=== PATIENT | male | born 1965 | race Caucasian/White ===

== ENCOUNTER 2023-06-28 19:26 | Emergency (ER) | payer SELFPAY ==
[2023-06-28] VITALS (10 sets, daily range): BP systolic 78–140; BP diastolic 54–100; PULSE 62–83; RESP 14–19; TEMP 35.3–35.8; O2SAT 88–97
--- NOTE | 2023-06-28 19:59 | ED_ITS ---
Documented by User: MARIAN Rose 06/28/23 21:21 HPI - Back Pain/Injury 2 General: Chief Complaint: Back Pain/Injury Stated Complaint: back pain Time Seen by Provider: 06/28/23 19:58 History of Present Illness: 57-year-old male patient comes in today with severe abdominal and back pain. Patient started having pain in his back last night. This evening when patient got up to have dinner he ate dinner and then threw up. Since then he has become chilled with decreased responsiveness. Spouse states that patient does have a history of kidney problems, CHF. Glucose 172 Review of Systems 2 General: Reports: 10 or more systems reviewed and unremarkable except in HPI and below Musc: Reports: back pain Physical Exam 2 Const: COMMON NORMALS: alert HENMT: HEAD & SCALP: normal to inspection Chest: COMMONS NORMALS: normal inspection of the chest Resp: COMMON NORMALS: clear to auscultation bilaterally AUSCULTATION: clear to auscultation bilaterally GI: PALPATION: Yes Firmness to palpation present (GI) Extremity: COMMON NORMALS: normal to inspection Neuro: SENSORIUM/ORIENTATION: Yes alert Skin: COMMON NORMALS: turgor normal GENERAL SKIN EXAM: turgor normal Course 2 Vital Signs: Vital signs: Vital Signs Temperature 96.4 F L 06/28/23 20:01 Pulse Rate 83 06/28/23 19:33 Respiratory Rate 14 06/28/23 20:52 Blood Pressure 78/59 06/28/23 20:01 Pulse Oximetry 93 06/28/23 19:33 Oxygen Delivery Me thod Room Air 06/28/23 19:33 MDM - Back Pain/Injury Medical Decision Making Patient comes in today for complaints of low back pain. On initial exam patient was pale and cold. Blood pressure was 78/59. Patient was complaining of back pain. Initial concern was for sepsis versus dissecting aortic aneurysm. Reviewed this with Dr. Rosen who agreed with plan to treat for sepsis at this time with IV fluids and antibiotic. Performed acute abdominal series which was unremarkable. Patient was then taken over for CT of the chest, abdomen, and pelvis. And a head CT. Patient was noted to have an acute ruptured infrarenal abdominal aortic aneurysm with retroperitoneal hemorrhage and hematoma. At that time Dr. Ellis assumed care for further treatment. Labs 06/28/23 19:14 06/28/23 19:14 Radiology Impressions Chest/Abdomen X-ray 06/28/23 20:05 IMPRESSION: 1. Mild elevation of both hemidiaphragms and a small left pleural effusion. 2. Hazy opacity of the abdomen tissues for ascites. Abdominal ultrasound or CT scan may be helpful if clinically indicated. 3. Findings suggestive of constipation. Chest/Abdomen/Pelvis CT 06/28/23 20:13 IMPRESSION: 1. No evidence of acute abnormality within limitations of a noncontrast exam. IMPRESSION: 1. Acute ruptured infrarenal abdominal aortic aneurysm with retroperitoneal hemorrhage/hematoma. Urgent surgical evaluation is recommended. THIS REPORT CONTAINS FINDINGS THAT MAY BE CRITICAL TO PATIENT CARE. The findings were verbally communicated by telephone with Dr. Rosen at 8:50 PM ENGINEERING TECHNOLOGY INSTRUCTOR on 06/28/2023. The findings were acknowledged and understood. Head CT 06/28/23 20:13 IMPRESSION: 1. No acute findings. 2. Mild cerebral small-vessel. Laboratory Results WBC 14.67 10^3/uL (3.29-11.43) H 06/28/23 19:14 RBC 4.87 10^6/uL (3.85-5.65) 06/28/23 19:14 Hgb 13.60 g/dL (11.27-16.99) 06/28/23 19:14 Hct 42.5 % (37-53) 06/28/23 19:14 MCV 87.3 fl (82-101) 06/28/23 19:14 MCH 27.9 pg (27-33) 06/28/23 19:14 MCHC 32.0 g/dL (30-55) 06/28/23 19:14 RDW 14.5 % (12.1-15.1) 06/28/23 19:14 Plt Count 417 10^3/cmm (157-399) H 06/28/23 19:14 MPV 9.7 fL (7.4-10.4) 06/28/23 19:14 Neut % (Auto) 68.5 % 06/28/23 19:14 Lymph % (Auto) 19.3 % 06/28/23 19:14 Sierra % (Auto) 6.7 % 06/28/23 19:14 Eos % (Auto) 3.5 % 06/28/23 19:14 Baso % (Auto) 1.4 % 06/28/23 19:14 Neut # (Auto) 10.04 10^3/uL (1.8-7.7) H 06/28/23 19:14 Lymph # (Auto) 2.8 10^3/uL (0.8-4.8) 06/28/23 19:14 Sierra # (Auto) 1.0 10^3/uL (0.2-0.9) H 06/28/23 19:14 Eos # (Auto) 0.5 10^3/uL (0.0-0.8) 06/28/23 19:14 Baso # (Auto) 0.2 10^3/uL (0.0-0.1) H 06/28/23 19:14 Nucleated RBC % (auto) 0 % 06/28/23 19:14 Nucleated RBCs # 0.0 /100WBC 06/28/23 19:14 Sodium 142 mmol/L (136-145) 06/28/23 19:14 Potassium 4.0 mmol/L (3.5-5.1) 06/28/23 19:14 Chloride 106 mmol/L (98-107) 06/28/23 19:14 Carbon Dioxide 20 mmol/L (22-29) L 06/28/23 19:14 Anion Gap 20.0 (5-19) H 06/28/23 19:14 BUN 26 mg/dL (6-20) H 06/28/23 19:14 Creatinine 2.3 mg/dL (0.7-1.2) H 06/28/23 19:14 GFR Calculation 29.4 mL/min (90-130) L 06/28/23 19:14 Glucose 171 mg/dL (65-115) H 06/28/23 19:14 POC Glucose 172 mg/dL (70-110) H 06/28/23 19:56 Calculated Osmolality 303 mOsm/kg (285-295) H 06/28/23 19:14 Calcium 9.2 mg/dL (8.5-10.5) 06/28/23 19:14 Total Bilirubin 0.2 mg/dL (0.15-1.2) 06/28/23 19:14 AST 14 U/L (0-40) 06/28/23 19:14 ALT 13 U/L (0-41) 06/28/23 19:14 Alkaline Phosphatase 103 U/L (40-130) 06/28/23 19:14 Troponin T Baseline 19 ng/L (0-15) H 06/28/23 19:14 Total Protein 6.5 g/dL (6.6-8.7) L 06/28/23 19:14 Albumin 4.2 g/dL (3.5-5.2) 06/28/23 19:14 Globulin 2.3 g/dL (1.3-4.6) 06/28/23 19:14 Lipase 241 U/L (13-60) H 06/28/23 19:14 Crossmatch See Detail 06/28/23 20:55 All radiology interpretation(s) finalized by discharge Discharge Plan Discharge Patient Disposition: Xfer Short-Term Hosp Clinical Impression: AAA (abdominal aortic aneurysm, ruptured) Condition: Stable Referrals: Fannie Sawyer DO [Primary Care Provider] - Coding Level of Care Code ED Shift Engineer for Chg Fwd Documented by User: Chio Ellis MD 06/28/23 21:27 HPI - Back Pain/Injury 2 General: Chief Complaint: Back Pain/Injury Stated Complaint: back pain Time Seen by Provider: 06/28/23 19:58 Course 2 Vital Signs: Vital signs: Vital Signs Temperature 96.4 F L 06/28/23 20:01 Pulse Rate 83 06/28/23 19:33 Respiratory Rate 14 06/28/23 20:52 Blood Pressure 78/59 06/28/23 20:01 Pulse Oximetry 93 06/28/23 19:33 Oxygen Delivery Me thod Room Air 06/28/23 19:33 MDM - Back Pain/Injury Medical Decision Making Patient comes in today for complaints of low back pain. On initial exam patient was pale and cold. Blood pressure was 78/59. Patient was complaining of back pain. Initial concern was for sepsis versus dissecting aortic aneurysm. Reviewed this with Dr. Rosen who agreed with plan to treat for sepsis at this time with IV fluids and antibiotic. Performed acute abdominal series which was unremarkable. Patient was then taken over for CT of the chest, abdomen, and pelvis. And a head CT. Patient was noted to have an acute ruptured infrarenal abdominal aortic aneurysm with retroperitoneal hemorrhage and hematoma. At that time Dr. Ellis assumed care for further treatment. I took patient over from the midlevel patient has a ruptured AAA start patient on a Cardene drip to lower his blood pressure he is still mentating here I spoke to vascular surgery originally at [facility] they declined due to it being infrarenal I then called [facility] spoke to vascular surgeon there he is excepted he is going ER to ER by air Medical Records I reviewed the patient's medical records. Labs I reviewed the patient's lab results. 06/28/23 19:14 06/28/23 19:14 Radiology Impressions Chest/Abdomen X-ray 06/28/23 20:05 IMPRESSION: 1. Mild elevation of both hemidiaphragms and a small left pleural effusion. 2. Hazy opacity of the abdomen tissues for ascites. Abdominal ultrasound or CT scan may be helpful if clinically indicated. 3. Findings suggestive of constipation. Chest/Abdomen/Pelvis CT 06/28/23 20:13 IMPRESSION: 1. No evidence of acute abnormality within limitations of a noncontrast exam. IMPRESSION: 1. Acute ruptured infrarenal abdominal aortic aneurysm with retroperitoneal hemorrhage/hematoma. Urgent surgical evaluation is recommended. THIS REPORT CONTAINS FINDINGS THAT MAY BE CRITICAL TO PATIENT CARE. The findings were verbally communicated by telephone with Dr. Rosen at 8:50 PM ENGINEERING TECHNOLOGY INSTRUCTOR on 06/28/2023. The findings were acknowledged and understood. Head CT 06/28/23 20:13 IMPRESSION: 1. No acute findings. 2. Mild cerebral small-vessel. Laboratory Results WBC 14.67 10^3/uL (3.29-11.43) H 06/28/23 19:14 RBC 4.87 10^6/uL (3.85-5.65) 06/28/23 19:14 Hgb 13.60 g/dL (11.27-16.99) 06/28/23 19:14 Hct 42.5 % (37-53) 06/28/23 19:14 MCV 87.3 fl (82-101) 06/28/23 19:14 MCH 27.9 pg (27-33) 06/28/23 19:14 MCHC 32.0 g/dL (30-55) 06/28/23 19:14 RDW 14.5 % (12.1-15.1) 06/28/23 19:14 Plt Count 417 10^3/cmm (157-399) H 06/28/23 19:14 MPV 9.7 fL (7.4-10.4) 06/28/23 19:14 Neut % (Auto) 68.5 % 06/28/23 19:14 Lymph % (Auto) 19.3 % 06/28/23 19:14 Sierra % (Auto) 6.7 % 06/28/23 19:14 Eos % (Auto) 3.5 % 06/28/23 19:14 Baso % (Auto) 1.4 % 06/28/23 19:14 Neut # (Auto) 10.04 10^3/uL (1.8-7.7) H 06/28/23 19:14 Lymph # (Auto) 2.8 10^3/uL (0.8-4.8) 06/28/23 19:14 Sierra # (Auto) 1.0 10^3/uL (0.2-0.9) H 06/28/23 19:14 Eos # (Auto) 0.5 10^3/uL (0.0-0.8) 06/28/23 19:14 Baso # (Auto) 0.2 10^3/uL (0.0-0.1) H 06/28/23 19:14 Nucleated RBC % (auto) 0 % 06/28/23 19:14 Nucleated RBCs # 0.0 /100WBC 06/28/23 19:14 Sodium 142 mmol/L (136-145) 06/28/23 19:14 Potassium 4.0 mmol/L (3.5-5.1) 06/28/23 19:14 Chloride 106 mmol/L (98-107) 06/28/23 19:14 Carbon Dioxide 20 mmol/L (22-29) L 06/28/23 19:14 Anion Gap 20.0 (5-19) H 06/28/23 19:14 BUN 26 mg/dL (6-20) H 06/28/23 19:14 Creatinine 2.3 mg/dL (0.7-1.2) H 06/28/23 19:14 GFR Calculation 29.4 mL/min (90-130) L 06/28/23 19:14 Glucose 171 mg/dL (65-115) H 06/28/23 19:14 POC Glucose 172 mg/dL (70-110) H 06/28/23 19:56 Calculated Osmolality 303 mOsm/kg (285-295) H 06/28/23 19:14 Calcium 9.2 mg/dL (8.5-10.5) 06/28/23 19:14 Total Bilirubin 0.2 mg/dL (0.15-1.2) 06/28/23 19:14 AST 14 U/L (0-40) 06/28/23 19:14 ALT 13 U/L (0-41) 06/28/23 19:14 Alkaline Phosphatase 103 U/L (40-130) 06/28/23 19:14 Troponin T Baseline 19 ng/L (0-15) H 06/28/23 19:14 Total Protein 6.5 g/dL (6.6-8.7) L 06/28/23 19:14 Albumin 4.2 g/dL (3.5-5.2) 06/28/23 19:14 Globulin 2.3 g/dL (1.3-4.6) 06/28/23 19:14 Lipase 241 U/L (13-60) H 06/28/23 19:14 Crossmatch See Detail 06/28/23 20:55 Critical Care Time 2 Critical Care Time: Critical Care Time: Yes Total Critical Care Time: 50 Attestation: The high probability of a clinically significant, sudden or life threatening deterioration of the patient's cv system(s) required my full and direct attention, intervention and personal management. The critical care time is as shown. This time is in addition to time spent performing any reported procedures but includes the following: [x] Data and vital sign review and interpretation [x] Patient assessment, examination and intervention [x] Documentation [x] Medication orders and management Discharge Plan Discharge Patient Disposition: Xfer Short-Term Hosp Clinical Impression: AAA (abdominal aortic aneurysm, ruptured) Condition: Stable Referrals: Fannie Sawyer DO [Primary Care Provider] - Coding Level of Care Code ED Shift Engineer for Javier Bullock
[2023-06-28 20:04] LABS: Glucose Point of Care 172 mg/dL (70-110)
--- NOTE | 2023-06-28 20:05 | XRR_ITS ---
PROCEDURE INFORMATION: Exam: XR Abdomen Exam date and time: 06/28/2023 8:09 PM Age: 57 years old Clinical indication: Abdominal pain; Patient HX: reports PT has not been himself today, almost passed out in the shower. C/O back pain, now also C/O abd pain. Zofran 4mg given by EMS en route TECHNIQUE: Imaging protocol: Radiologic exam of the abdomen. Views: 2 Views. Upright and supine views. COMPARISON: No relevant prior studies available. FINDINGS: Lungs: No pulmonary consolidation. Pleural spaces: Mild elevation of both hemidiaphragms with a small left pleural effusion. No pneumothorax. Heart/Mediastinum: The heart is top-normal in size. Gastrointestinal tract: Gas in the colon small bowel without significant distention. Moderate fecal burden in the rectosigmoid suggestive of constipation. Intraperitoneal space: There is a hazy opacity of the abdomen as may be seen in ascites. No evidence of free gas. Bones/joints: Unremarkable for age. XR/XR acute abdomen series [id number] IMPRESSION: 1. Mild elevation of both hemidiaphragms and a small left pleural effusion. 2. Hazy opacity of the abdomen tissues for ascites. Abdominal ultrasound or CT scan may be helpful if clinically indicated. 3. Findings suggestive of constipation.
[2023-06-28 20:10] LABS: Basophils # 0.2 10^3/uL (0.0-0.1); Basophils % 1.4 %; Eosinophils # 0.5 10^3/uL (0.0-0.8); Eosinophils % 3.5 %; Hematocrit 42.5 % (37-53); Lymphocytes # 2.8 10^3/uL (0.8-4.8); Lymphocytes % 19.3 %; Mean Corpuscular Hemoglobin 27.9 pg (27-33); Mean Corpuscular Volume 87.3 fl (82-101); Mean Platelet Volume 9.7 fL (7.4-10.4); Monocytes % 6.7 %; Neutrophils # 10.04 10^3/uL (1.8-7.7); Neutrophils % 68.5 %; Nucleated Red Blood Cells % 0 %; Platelet Count 417 10^3/cmm (157-399); Red Blood Count 4.87 10^6/uL (3.85-5.65); Red Cell Distribution Width 14.5 % (12.1-15.1); White Blood Count 14.67 10^3/uL (3.29-11.43)
--- NOTE | 2023-06-28 20:13 | CTR_ITS ---
PROCEDURE INFORMATION: Exam: CT Head Without Contrast Exam date and time: 06/28/2023 8:25 PM Age: 57 years old Clinical indication: Altered mental status/memory loss; Additional info: AMS TECHNIQUE: Imaging protocol: Computed tomography of the head without contrast. Radiation optimization: All CT scans at this facility use at least one of these dose optimization techniques: automated exposure control; mA and/or kV adjustment per patient size (includes targeted exams where dose is matched to clinical indication); or iterative reconstruction. COMPARISON: No relevant prior studies available. RADIATION DOSE METRICS: Total DLP (mGy-cm): 1134.48 FINDINGS: Brain: There is no evidence of intracranial hemorrhage. No mass effect or midline shift. No territorial edema. There are mild confluent periventricular hypodensities consistent with chronic microischemic changes of white matter. Cerebral ventricles: The ventricles and sulci are appropriate for the patient's age. Paranasal sinuses: There are no air-fluid levels. Mastoid air cells: The visualized mastoid air cells are well aerated. Bones/joints: No acute fracture. Soft tissues: Unremarkable. Vasculature: There is atheromatous calcification of the intracranial internal carotid arteries. CT/CT head wo con* [id number] IMPRESSION: 1. No acute findings. 2. Mild cerebral small-vessel.
--- NOTE | 2023-06-28 20:13 | CTR_ITS ---
PROCEDURE INFORMATION: Exam: CT Chest Without Contrast; Diagnostic Exam date and time: 06/28/2023 8:27 PM Age: 57 years old Clinical indication: Patient HX: Patient saying he has terrible back pain; Additional info: AMS, severe abd and back pain TECHNIQUE: Imaging protocol: Diagnostic computed tomography of the chest without contrast. Radiation optimization: All CT scans at this facility use at least one of these dose optimization techniques: automated exposure control; mA and/or kV adjustment per patient size (includes targeted exams where dose is matched to clinical indication); or iterative reconstruction. COMPARISON: CR (CHEST, ) 06/28/2023 8:09 PM RADIATION DOSE METRICS: Total DLP (mGy-cm): 1157.96 FINDINGS: Thyroid: Grossly unremarkable. Lungs: No focal consolidation. No pneumothorax. Pleural spaces: No pleural effusion. Heart: No cardiomegaly. No pericardial effusion. Coronary arteries: There are incidental coronary artery calcifications. Mediastinal space: Trachea and airway are grossly patent. No evidence of mediastinal hemorrhage or hematoma. Lymph nodes: No evidence of mediastinal adenopathy. Evaluation for hilar adenopathy is limited by lack of IV contrast. Vasculature: No evidence of aneurysmal dilatation of the ascending thoracic aorta. There is borderline aneurysmal dilatation of the descending thoracic aorta to 3.0 cm in diameter. Evaluation for acute vascular injury or thrombosis is limited by lack of IV contrast. Bones/joints: No evidence of acute fracture or aggressive osseous lesion. Soft tissues: No evidence of fluid collection or hematoma in the superficial soft tissues. PROCEDURE INFORMATION: Exam: CT Abdomen And Pelvis Without Contrast Exam date and time: 06/28/2023 8:27 PM Age: 57 years old Clinical indication: Patient HX: Patient saying he has terrible back pain; Additional info: AMS, severe abd and back pain TECHNIQUE: Imaging protocol: Computed tomography of the abdomen and pelvis without contrast. Radiation optimization: All CT scans at this facility use at least one of these dose optimization techniques: automated exposure control; mA and/or kV adjustment per patient size (includes targeted exams where dose is matched to clinical indication); or iterative reconstruction. COMPARISON: CR (CHEST, ) 06/28/2023 8:09 PM RADIATION DOSE METRICS: Total DLP (mGy-cm): 1157.96 FINDINGS: Liver: No evidence of focal hepatic lesion within limitation of a noncontrast exam. Gallbladder and bile ducts: Gallbladder is unremarkable. No evidence of intra-hepatic or extra-hepatic biliary dilatation. Pancreas: Grossly unremarkable. Spleen: Grossly unremarkable. Adrenal glands: Grossly unremarkable. 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 There is moderate atrophy of the left kidney as well. No evidence of hydronephrosis or ureteral stone. Stomach and bowel: Diverticulosis without evidence of acute diverticulitis. There is wall thickening of the sigmoid colon, possibly secondary to prior bouts of diverticulitis. Consider correlation with follow-up outpatient colonoscopy to exclude an underlying mucosal lesion. No bowel obstruction or perienteric inflammatory changes. Appendix: Normal appendix. Vasculature: Acute ruptured infrarenal abdominal aortic aneurysm measuring 6.8 cm in maximal diameter. There is retroperitoneal hemorrhage, predominantly on the right with rupture noted along the right lateral aspect of the aorta (image 88 of the axial series 3). There is an approximately 10 cm craniocaudal by 5.5 cm transverse retroperitoneal hematoma abutting the right psoas muscle. Hemorrhage extends inferiorly into the right hemipelvis. There is extensive aorto bi-iliac atherosclerosis. The iliac arteries are nonaneurysmal. Mild aneurysmal dilatation of the suprarenal abdominal aorta to a proximally 3.5 cm in diameter. Lymph nodes: No evidence of adenopathy. Urinary bladder: Grossly unremarkable. Reproductive: Grossly unremarkable. Bones/joints: No evidence of acute fracture or aggresive osseous lesion. Soft tissues: There is a 3 cm periumbilical hernia containing a short segment of nonobstructed small bowel. No evidence of fluid collection or hematoma in the superficial soft tissues. CT/[place] [id number] IMPRESSION: 1. No evidence of acute abnormality within limitations of a noncontrast exam. IMPRESSION: 1. Acute ruptured infrarenal abdominal aortic aneurysm with retroperitoneal hemorrhage/hematoma. Urgent surgical evaluation is recommended. THIS REPORT CONTAINS FINDINGS THAT MAY BE CRITICAL TO PATIENT CARE. The findings were verbally communicated by telephone with Dr. Rosen at 8:50 PM DISPUTE COORDINATOR on 06/28/2023. The findings were acknowledged and understood.
[2023-06-28] MEDS: sodium chloride 0.9% 1,000 ML 999 ML IV (20:17)
[2023-06-28 20:30] LABS: Troponin(5th) Baseline 19 ng/L (0-15)
[2023-06-28 20:32] LABS: Alanine Aminotransferase 13 U/L (0-41); Albumin Level 4.2 g/dL (3.5-5.2); Alkaline Phosphatase 103 U/L (40-130); Aspartate Amino Transferase 14 U/L (0-40); Blood Urea Nitrogen 26 mg/dL (6-20); Calcium 9.2 mg/dL (8.5-10.5); Carbon Dioxide 20 mmol/L (22-29); Chloride 106 mmol/L (98-107); Globulin 2.3 g/dL (1.3-4.6); Glomerular Filtration Rate 29.4 mL/min (90-130); Glucose 171 mg/dL (65-115); Lipase 241 U/L (13-60); Osmolality Calculated 303 mOsm/kg (285-295); Sodium 142 mmol/L (136-145); Total Bilirubin 0.2 mg/dL (0.15-1.2); Total Protein 6.5 g/dL (6.6-8.7)
[2023-06-28] MEDS: fentaNYL 50 mcg/mL INJ 2mL 86.2 MCG IVP (20:52)
[2023-06-28] MEDS: sodium chloride 0.9% 100 mL Bag 50 ML IV (21:16)
[2023-06-28] MEDS: nicardipine 20 MG/200 ML PREMIX 50 MG IV (21:25)
[2023-06-28 21:26] LABS: Troponin 5 2HR 23.18 ng/L (0-15); Troponin 5 2HR Delta 4.18 ABS# (0-10)
--- NOTE | 2023-06-28 21:30 | PC.NURSE ---
Rhonda JOY gave verbal order per [facility] to max out cardene drip and to titrate down to keep systolic bp below 90.
[2023-06-28] MEDS: hyDRALAzine 20 mg/mL INJ 1 mL 10 MG IVP (21:34)
[2023-06-28] MEDS: HYDROmorphone 1 mg/mL INJ 1 mL IVP (21:36)
[2023-06-28 21:37] LABS: Lactic Sepsis W/Reflex 4.2 mmol/L (0.5-2.2)
--- NOTE | 2023-06-28 21:56 | ECG_ITS ---
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 Measurements Intervals [place] Rate: 76 P: 19 FL: 187 QRS: 48 QRSD: 101 T: 47 QT: 431 QTc: 487 Interpretive Statements SINUS RHYTHM PROLONGED QT INTERVAL No previous ECG available for comparison Electronically Signed On 07-02-2023 11:00:52 CREDIT CLERK by Selwyn Fisher M.D. [id number]
[2023-06-28 22:50] LABS: Reflex Lactate Order REFLEX LACTIC ORDERD
--- NOTE | 2023-06-29 04:17 | PC.NURSE ---
blood products pt was given 1 product of o negative. 2nd nurse verification done with osbaldo dean. 2nd bag taken back to lab by this nurse.
--- NOTE | 2023-06-29 04:45 | PC.NURSE ---
pt temp pt was placed under a bear hugger blanket approx 15 minutes after arrival to room.
== END 2023-06-28 22:34 | disposition short-term general hospital (02) ==
PROVIDERS: Nurse Practitioner Family; Emergency Provider Emergency Medicine; PCP Family Medicine
DX: I71.30 Abdominal aortic aneurysm, ruptured, unspecified (principal)
CPT/HCPCS: 36416; 70450; 71250; 74022; 74176; 80053; 82962; 83605; 83690; 84484; 85025; 86850; 86900; 86920; 87040; 93005; 96365; 96375; 99285; 99291; J0360; J1170; J3010; J7030; P9016

== ENCOUNTER 2023-07-17 07:15 | Observation (INO) | payer OTHER, SELFPAY ==
[2023-07-17] VITALS (17 sets, daily range): BP systolic 168–194; BP diastolic 94–110; PULSE 80–92; RESP 16–22; TEMP 36.5–36.9; O2SAT 92–98; BMI 30.4
--- NOTE | 2023-07-17 07:20 | XRR_ITS ---
PROCEDURE INFORMATION: Exam: XR Chest Exam date and time: 07/17/2023 7:32 AM Age: 57 years old Clinical indication: Cough and dyspnea; Prior surgery; Surgery date: 6+ months; Surgery type: Port; Additional info: Dyspnea/cough TECHNIQUE: Imaging protocol: Radiologic exam of the chest. Views: 1 view. COMPARISON: [place] [id number] 06/28/2023 8:27 PM FINDINGS: Tubes, catheters and devices: Dialysis access catheter terminates in the SVC. Lungs: Possible minimal atelectasis in the left lung base. Interface between left lower lobe and the large volume of extrapleural fat posterior left lower hemithorax is slightly less distinct than on 06/28/2023. No obvious pneumonic consolidation identified. Pleural spaces: No significant pleural fluid. No pneumothorax detected. Heart/Mediastinum: Heart size is stable compared to prior study. No pulmonary vascular congestion. Bones/joints: No obvious acute abnormality. XR/XR chest 1V portable [id number] IMPRESSION: There may be minimal atelectasis in the left lung base, new compared to previous exam. Pleural density at the left base likely corresponds to large volume of extrapleural fat confirmed on review of prior CT chest dated 06/28/2023.
--- NOTE | 2023-07-17 07:21 | ECG_ITS ---
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 Measurements Intervals [place] Rate: 81 P: 29 RI: 174 QRS: 56 QRSD: 102 T: 59 QT: 396 QTc: 461 Interpretive Statements SINUS RHYTHM Compared to ECG 06/28/2023 21:49:05 Prolonged QT interval no longer present Electronically Signed On 07-17-2023 9:49:04 [employer] by Selwyn Fisher M.D. [id number]
--- NOTE | 2023-07-17 07:34 | ED_ITS ---
HPI - SOB/Dyspnea 2 General: Chief Complaint: ER Hold Stated Complaint: sob Time Seen by Provider: 07/17/23 07:16 Source: patient Mode of arrival: ambulatory History of Present Illness: HPI Narrative: 57-year-old male presents to the emergen cy room complaining shortness of breath abdominal pain. Patient had a PTCA for repair of a abdominal aortic aneurysm with endograft. This morning he became suddenly short of breath at all arrival department his oxygen sat was 85% on room air he does not normally wear oxygen. He has felt hot subjectively felt like he had a fever but has not measured it. He is mildly tachypneic and hypertensive has not taken his medications this morning. He has not had any hemoptysis or productive cough he is on hemodialysis and is due for dialysis today MD elicited complaint: shortness of breath and cough Onset (ago): minute(s) Severity: mild Relieving factors: nothing Associated symptoms: Deny abdominal pain, chest congestion, chest pain, fever(s) or hemoptysis Review of Systems 2 Const: Denies: fever(s) or chills Card: Denies: chest pain Resp: Reports: dyspnea; Denies: productive cough, non-productive cough, wheezing, hemoptysis or chest congestion GI: Denies: abdominal pain : Denies: dysuria, urinary frequency or urinary urgency Musc: Denies: neck pain or back pain Skin/Breast: Denies: rash PFSH ED 2 PFSH: Medical History (Updated 07/17/23 @ 15:01 by Robby Felipe DO) Hypothyroidism Hypertension Surgical History (Updated 07/17/23 @ 14:54 by Praveen Beltran MD) H/O aortic aneurysm repair Social History (Updated 07/17/23 @ 14:45 by Praveen Beltran MD) Smoking and tobacco/nicotine status: former use of tobacco/nicotine Alcohol intake: never Physical Exam 2 Const: COMMON NORMALS: no acute distress GENERAL APPEARANCE: cooperative and comfortable ORIENTATION/CONSCIOUSNESS: Yes awake, Yes oriented to person, Yes oriented to place and Yes oriented to time HENMT: COMMON NORMALS: normocephalic, atraumatic and hearing grossly normal bilaterally HEAD & SCALP: normocephalic and atraumatic Resp: COMMON NORMALS: normal respiratory effort, No retractions, No use of accessory muscles and clear to auscultation bilaterally AUSCULTATION: clear to auscultation bilaterally Cardio: COMMON NORMALS: regular rate, regular rhythm and No murmurs present (Cardio) RATE: regular rate RHYTHM: regular rhythm GI: COMMON NORMALS: Soft to palpation and No hepatosplenomegaly present A USCULTATION: Yes normoactive bowel sounds PALPATION: Yes Soft to palpation, No Tenderness to palpation present (GI), No Guarding due to palpation present (GI) and Yes No hepatosplenomegaly present Extremity: COMMON NORMALS: normal to inspection, capillary refill normal, no clubbing, cyanosis or edema, no calf tenderness and no pedal edema Neuro: SENSORIUM/ORIENTATION: Yes oriented to person, Yes oriented to place and Yes oriented to time Skin: COMMON NORMALS: no rashes or lesions noted GENERAL SKIN EXAM: no rashes or lesions noted Course 2 Vital Signs: Vital signs: Vital Signs Temperature 97.7 F 07/17/23 07:22 Pulse Rate 89 07/17/23 13:15 Respiratory Rate 18 07/17/23 13:15 Blood Pressure 176/94 07/17/23 13:15 Pulse Oximetry 96 07/17/23 13:15 Oxygen Delivery Me thod Nasal Cannula 07/17/23 11:30 Oxygen Flow Rate 3 07/17/23 11:30 MDM - SOB/Dyspnea Medical Decision Making Patient had recent endograft repair which appears to be stable. He is in some mild heart failure exacerbation COPD he was hyperkalemic and due for his dialysis today. He still requires at least 3 L by nasal cannula. No fever sweats or chills his oxygen requirement is new. Patient was given albuterol Kayexalate and calcium in the emergency room. Differential Diagnosis Likely acute exacerbation of chronic obstructive airways disease and congestive heart failure Medical Records I reviewed the patient's medical records. Lab Data I reviewed the patient's lab results. 07/17/23 07:46 07/17/23 08:31 Labs/Radiology: Radiology Impressions Chest X-Ray 07/17/23 07:20 IMPRESSION: There may be minimal atelectasis in the left lung base, new compared to previous exam. Pleural density at the left base likely corresponds to large volume of extrapleural fat confirmed on review of prior CT chest dated 06/28/2023. Laboratory Results WBC 10.34 10^3/uL (3.29-11.43) 07/17/23 07:46 RBC 3.07 10^6/uL (3.85-5.65) L 07/17/23 07:46 Hgb 8.70 g/dL (11.27-16.99) L 07/17/23 07:46 Hct 28.8 % (37-53) L 07/17/23 07:46 MCV 93.8 fl (82-101) 07/17/23 07:46 MCH 28.3 pg (27-33) 07/17/23 07:46 MCHC 30.2 g/dL (30-55) 07/17/23 07:46 RDW 17.0 % (12.1-15.1) H 07/17/23 07:46 Plt Count 472 10^3/cmm (157-399) H 07/17/23 07:46 MPV 9.8 fL (7.4-10.4) 07/17/23 07:46 Neut % (Auto) 76.9 % 07/17/23 07:46 Lymph % (Auto) 11.4 % 07/17/23 07:46 Brooke % (Auto) 5.7 % 07/17/23 07:46 Eos % (Auto) 4.2 % 07/17/23 07:46 Baso % (Auto) 0.9 % 07/17/23 07:46 Neut # (Auto) 7.96 10^3/uL (1.8-7.7) H 07/17/23 07:46 Lymph # (Auto) 1.2 10^3/uL (0.8-4.8) 07/17/23 07:46 Brooke # (Auto) 0.6 10^3/uL (0.2-0.9) 07/17/23 07:46 Eos # (Auto) 0.4 10^3/uL (0.0-0.8) 07/17/23 07:46 Baso # (Auto) 0.1 10^3/uL (0.0-0.1) 07/17/23 07:46 Nucleated RBC % (auto) 0 % 07/17/23 07:46 Nucleated RBCs # 0.0 /100WBC 07/17/23 07:46 Sodium 137 mmol/L (136-145) 07/17/23 08:31 Potassium 5.6 mmol/L (3.5-5.1) H 07/17/23 08:31 Chloride 92 mmol/L (98-107) L 07/17/23 08:31 Carbon Dioxide 28 mmol/L (22-29) 07/17/23 08:31 Anion Gap 22.6 (5-19) H 07/17/23 08:31 BUN 55 mg/dL (6-20) H 07/17/23 08:31 Creatinine 9.0 mg/dL (0.7-1.2) H* 07/17/23 08:31 GFR Calculation 6.1 mL/min (90-130) L 07/17/23 08:31 Glucose 111 mg/dL (65-115) 07/17/23 08:31 Calculated Osmolality 300 mOsm/kg (285-295) H 07/17/23 08:31 Calcium 7.9 mg/dL (8.5-10.5) L 07/17/23 08:31 Total Bilirubin 0.3 mg/dL (0.15-1.2) 07/17/23 08:31 AST 22 U/L (0-40) 07/17/23 08:31 ALT 9 U/L (0-41) 07/17/23 08:31 Alkaline Phosphatase 106 U/L (40-130) 07/17/23 08:31 Troponin T Baseline 88 ng/L (0-15) H 07/17/23 08:31 Troponin T 120 Minute 84.39 ng/L (0-15) H 07/17/23 10:52 Delta Troponin T -3.61 ABS# (0-10) L 07/17/23 10:52 Total Protein 6.2 g/dL (6.6-8.7) L 07/17/23 08:31 Albumin 3.3 g/dL (3.5-5.2) L 07/17/23 08:31 Globulin 2.9 g/dL (1.3-4.6) 07/17/23 08:31 Hep Bs Antigen Non-reactive (Nonreactive) 07/17/23 08:31 Hep Bs Antibody < 3.5 (11.5-1000) L 07/17/23 08:31 Hep B Core Total Ab Non-reactive (Nonreactive) 02/19/24 08:31 All radiology interpretation(s) finalized by discharge Discharge Plan Discharge Patient Disposition: Placed in Observation Admit Provider: Praveen Beltran Clinical Impression: Acute exacerbation of chronic obstructive airways disease, End-stage renal disease on hemodialysis, Hyperkalemia, Diastolic CHF Coding Level of Care Code ED People Manager for Javier Bullock
--- NOTE | 2023-07-17 07:43 | CT_ITS ---
WS: [id number] CTA OF THE CHEST WITH PULMONARY EMBOLISM PROTOCOL TECHNIQUE: High-resolution contrast enhanced CTA of the chest with coronal and sagittal reformatted i yaz with pulmonary embolism protocol. MIP images are also reviewed. CLINICAL INFORMATION: DYSPNEA/HYPOXIA COMPARISON: None. DLP: 472.[address] scans at [facility] use at least one of these dose optimization techniques: automated e xposure control; mA and/or kV adjustment per patient size (includes targeted exams where dose is matc hed to clinical indication); or iterative reconstruction. FINDINGS: Proximal main pulmonary arteries are normal. Normal segmental and subsegmental pulmonary ar teries. No evidence of pulmonary embolus.Small bilateral pleural effusions. Compressive atelectasis i n the lung bases. Subsegmental atelectasis RIGHT upper lobe anteromedially with air bronchograms Normal caliber thoracic aorta. Aortic calcification. A few reactive mediastinal and parabronchial lym ph nodes. No axillary lymphadenopathy. Reflux into the hepatic veins can be seen with RIGHT heart dysfunction. Small esophageal hernia . Adrenal glands are normal. Partially visualized endograft in the upper abdomen. IMPRESSION: 1. Main pulmonary arteries are normal. Normal segmental and subsegmental pulmonary arteries. No evid ence of pulmonary embolus. 2. Small bilateral pleural effusion with compressive atelectasis in the lung bases. 3. Reflux into the hepatic veins can be seen with RIGHT heart dysfunction. 4. Small esophageal hernia.
[2023-07-17 07:56] LABS: Basophils # 0.1 10^3/uL (0.0-0.1); Basophils % 0.9 %; Eosinophils # 0.4 10^3/uL (0.0-0.8); Eosinophils % 4.2 %; Hematocrit 28.8 % (37-53); Lymphocytes # 1.2 10^3/uL (0.8-4.8); Lymphocytes % 11.4 %; Mean Corpuscular HGB Conc 30.2 g/dL (30-55); Mean Corpuscular Hemoglobin 28.3 pg (27-33); Mean Corpuscular Volume 93.8 fl (82-101); Mean Platelet Volume 9.8 fL (7.4-10.4); Monocytes # 0.6 10^3/uL (0.2-0.9); Monocytes % 5.7 %; Neutrophils # 7.96 10^3/uL (1.8-7.7); Neutrophils % 76.9 %; Nucleated Red Blood Cells % 0 %; Platelet Count 472 10^3/cmm (157-399); Red Blood Count 3.07 10^6/uL (3.85-5.65); White Blood Count 10.34 10^3/uL (3.29-11.43)
--- NOTE | 2023-07-17 08:10 | PC.PHAR ---
SPOUSE STATES ATORVASTATIN 40MG, NIFEDIPINE 30MG, AND LISINOPRIL 40MG-DISCONTINUED. ALSO, STATES NEW MEDICATION CLOPIDOGREL 75MG ADDED BUT NOT FOUND ON EXT MED LIST. 07/17/23
[2023-07-17 09:02] LABS: Troponin(5th) Baseline 88 ng/L (0-15)
[2023-07-17 09:14] LABS: Alanine Aminotransferase 9 U/L (0-41); Albumin Level 3.3 g/dL (3.5-5.2); Alkaline Phosphatase 106 U/L (40-130); Anion Gap 22.6 (5-19); Aspartate Amino Transferase 22 U/L (0-40); Blood Urea Nitrogen 55 mg/dL (6-20); Calcium 7.9 mg/dL (8.5-10.5); Carbon Dioxide 28 mmol/L (22-29); Chloride 92 mmol/L (98-107); Creatinine Clr Calc Pharmacy 9.7852; Globulin 2.9 g/dL (1.3-4.6); Glomerular Filtration Rate 6.1 mL/min (90-130); Glucose 111 mg/dL (65-115); Osmolality Calculated 300 mOsm/kg (285-295); Potassium 5.6 mmol/L (3.5-5.1); Sodium 137 mmol/L (136-145); Total Bilirubin 0.3 mg/dL (0.15-1.2); Total Protein 6.2 g/dL (6.6-8.7)
--- NOTE | 2023-07-17 09:19 | ECG_ITS ---
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 Measurements Intervals [place] Rate: 82 P: 21 [place]: 182 QRS: 45 QRSD: 93 T: 60 QT: 399 QTc: 466 Interpretive Statements SINUS RHYTHM Compared to ECG 07/17/2023 07:24:55 No significant changes Electronically Signed On 07-17-2023 9:49:19 PAYROLL ACCOUNTING SPECIALIST by Selwyn Fisher M.D. [id number]
[2023-07-17] MEDS: iohexol 350 mg/mL 500 mL Btl (per mL) IV (09:47)
[2023-07-17] MEDS: sodium polystyrene sulfonate 15 gm/60 mL Btl PO (10:45)
[2023-07-17] MEDS: dexamethasone 10 mg/mL INJ IVP (10:45)
[2023-07-17] MEDS: calcium chloride 10% Syr 10 mL 1 GM IVP (10:45)
[2023-07-17 11:32] LABS: Troponin 5 2HR 84.39 ng/L (0-15)
[2023-07-17 11:33] LABS: Troponin 5 2HR Delta -3.61 ABS# (0-10)
[2023-07-17] MEDS: albuterol 2.5 mg/3 mL Neb 10 MG INHALATION (11:34)
--- NOTE | 2023-07-17 13:32 | ECG_ITS ---
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 Measurements Intervals [place] Rate: 83 P: 33 [place]: 187 QRS: 29 QRSD: 90 T: 49 QT: 394 QTc: 464 Interpretive Statements SINUS RHYTHM POSSIBLE LEFT ATRIAL ENLARGEMENT [-0.1mV P-WAVE IN V1/V2] Compared to ECG 07/17/2023 09:19:14 No significant changes Electronically Signed On 07-17-2023 15:43:59 CHUCKING AND BORING MACHINE OPERATOR by Selwyn Fisher M.D. [id number]
--- NOTE | 2023-07-17 14:09 | P.CONIM_ITS ---
Providers/Reason For Consult 2 Consulting Physician/Specialty*: kommana/Nephrology Reason for Consult*: ESRD Attending Physician: Praveen Beltran MD Primary Care Provider: Florentino Barrera MD History of Present Illness History of Present Illness Celestine Farrell is a 57 year old male 57-year-old male with past medical history of hypertension, recent abdominal aneurysm repair with endograft, end-stage renal disease on dialysis per Monday schedule via right tunneled catheter presented to the emergency department complaining of shortness of breath. Patient was noted to be hypoxic and was placed on O2 currently at 4 L. Also was noted to be hypertensive in the ED. Other lab data is significant for hemoglobin of 8.7 potassium of 5.6 BUN [address] angiogram of the chest was done today that was negative for PE, small bilateral pleural effusions. Review of Systems 2 Narrative: OTHER ros NEGATIVE Medications/Allergies Home Medications Medication Instructions Recorded Confirmed Last Taken Type amlodipine 10 mg tablet 10 mg PO QAM 07/17/23 07/17/23 07/17/23 History aspirin 81 mg tablet,delayed 81 mg PO DAILY 07/17/23 07/17/23 07/17/23 History release clopidogrel 75 mg tablet 75 mg PO DAILY 07/17/23 07/17/23 07/17/23 History levothyroxine 50 mcg tablet 50 mcg PO DAILY 07/17/23 07/17/23 07/17/23 History losartan 25 mg tablet 25 mg PO DAILY 07/17/23 07/17/23 07/17/23 History metoprolol tartrate 100 mg tablet 100 mg PO BID 07/17/23 07/17/23 07/17/23 History Allergies Allergy/AdvReac Type Severity Reaction Status Date / Time adhesive Allergy ALGY-Rash Verified 07/17/23 07:30 Penicillins Allergy Unknown Verified 07/17/23 07:30 PFSH Acute 2 PFSH: Medical History (Updated 07/17/23 @ 14:44 by Praveen Beltran MD) Hypothyroidism Hypertension Surgical History (Updated 07/17/23 @ 14:44 by Praveen Beltran MD) H/O aortic aneurysm repair Social History Smoking and tobacco/nicotine status: former use of tobacco/nicotine Alcohol intake: never Vitals/I&O/Wt Last Vital Signs Temp 97.7 F 07/17/23 07:22 Pulse 89 07/17/23 13:15 Resp 18 07/17/23 13:15 BP 176/94 07/17/23 13:15 Pulse Ox 96 07/17/23 13:15 O2 Del Method Nasal Cannula 07/17/23 11:30 O2 Flow Rate 3 07/17/23 11:30 Weight last 48 hrs Weight 90.718 kg Physical Exam 2 Narrative: AWAKE , ALERT , + LE edema Data 07/17/23 07:46 07/17/23 08:31 A&P Assessment and plan (1) End-stage renal disease on hemodialysis: Plan 1. End-stage renal disease: On MWF schedule as outpatient, patient now presented with hyperkalemia and volume overload, hypoxic. Plan for HD today- ultrafiltration as tolerated 2. Hyperkalemia: Low potassium diet and HD as above 3. Anemia: Will order NAJMA with HD 4. Acute on chronic respiratory failure, off hypoxic, 5. History of hypertension, blood pressures elevated on presentation, resume home meds 6. History of recent abdominal aortic aneurysm repair Patient evaluated using audiovisual cart. Time spent 40 minutes. Consult Attestations 2 Medical Necessity Statement: per twin Coding Level of Care Code Acute Code for Chg Fwd Diagnoses End-stage renal disease on hemodialysis N18.6; Z99.2
--- NOTE | 2023-07-17 14:39 | P.HP_ITS ---
Providers/Chief Complaint 2 Admitting Physician: Praveen Beltran MD Primary Care Provider: Florentino Barrera MD Chief Complaint: sob History of Present Illness Celestnie Farrell is a 57 year old male who has end-stage renal disease on hemodialysis who presents with shortness of breath. He reports some significant lower extremity swelling. Has felt hot but has not had any documented fever. No significant cough. Typically receives dialysis on Monday. Recently had PTCA for a ruptured abdominal aortic aneurysm with retroperitoneal hemorrhage. Was transferred to the [facility] for this. In the emergency department he got a dose of dexamethasone, some calcium chloride, and some Kayexalate. Medications/Allergies Home Medications Medication Instructions Recorded Confirmed Last Taken Type amlodipine 10 mg tablet 10 mg PO QAM 07/17/23 07/17/23 07/17/23 History aspirin 81 mg tablet,delayed 81 mg PO DAILY 07/17/23 07/17/23 07/17/23 History release clopidogrel 75 mg tablet 75 mg PO DAILY 07/17/23 07/17/23 07/17/23 History levothyroxine 50 mcg tablet 50 mcg PO DAILY 07/17/23 07/17/23 07/17/23 History losartan 25 mg tablet 25 mg PO DAILY 07/17/23 07/17/23 07/17/23 History metoprolol tartrate 100 mg tablet 100 mg PO BID 07/17/23 07/17/23 07/17/23 History Allergies Allergy/AdvReac Type Severity Reaction Status Date / Time adhesive Allergy ALGY-Rash Verified 07/17/23 07:30 Penicillins Allergy Unknown Verified 07/17/23 07:30 PFSH Acute 2 PFSH: Medical History (Updated 07/17/23 @ 15:01 by Robby Felipe DO) Hypothyroidism Hypertension Surgical History (Updated 07/17/23 @ 14:54 by Praveen Beltran MD) H/O aortic aneurysm repair Social History (Updated 07/17/23 @ 14:45 by Praveen Beltran MD) Smoking and tobacco/nicotine status: former use of tobacco/nicotine Alcohol intake: never Vitals/I&O/Wt Last Vital Signs Temp 97.7 F 07/17/23 07:22 Pulse 89 07/17/23 13:15 Resp 18 07/17/23 13:15 BP 176/94 07/17/23 13:15 Pulse Ox 96 07/17/23 13:15 O2 Del Method Nasal Cannula 07/17/23 11:30 O2 Flow Rate 3 07/17/23 11:30 Weight last 48 hrs Weight 90.718 kg Physical Exam 2 Narrative: General exam is white male, hard of hearing, in no distress but requiring 3 L of oxygen HEENT: Atraumatic normocephalic. Oropharynx clear Neck is supple no lymphadenopathy thyromegaly Cardiovascular regular rate rhythm without murmur, no S3 or S4 Lungs clear no wheezing or crackles Abdomen is soft positive bowel sounds. No obvious organomegaly exam is deferred Extremities 2+ edema bilaterally. No cyanosis or clubbing. Skin no rash Neuro no focal deficits Data 07/17/23 07:46 07/17/23 08:31 Other Labs: Troponin 88 with repeat of 84 LFTs normal Calcium 7.9, albumin 3.3 Chest CTA no pulmonary embolism, small bilateral effusions, some reflux into the hepatic veins and a small esophageal hiatal hernia Chest x-ray reviewed by me demonstrates central line, slight atelectasis left lung base, congestive changes EKG reviewed by me demonstrates sinus rhythm, normal axis A&P Assessment and plan (1) Hyperkalemia: Patient has hyperkalemia, attributed to his chronic kidney disease. He has been receiving dialysis Monday, has only had 3 dialysis interventions since his discharge from [facility] for PTCA of abdominal aortic aneurysm. He appears fluid overloaded today. Kayexalate, calcium were given in the emergency department Nephrology consultation for end-stage renal disease, need for dialysis (2) Diastolic CHF: Patient appears to have acute diastolic congestive heart failure, likely related to end-stage renal disease Echocardiogram Serial troponins Nephrology consultation CBC, CMP tomorrow Wean oxygen as tolerated Telemetry (3) End-stage renal disease on hemodialysis: See above (4) H/O aortic aneurysm repair: Recent repair Request records I suspect his hemoglobin is stable but will repeat hemoglobin this afternoon Plan Anemia, repeat hemoglobin History of tobacco use. Currently not wheezing significantly. Placed on budesonide, DuoNeb. No further steroids currently. Full code SCDs for DVT prophylaxis. Heparin for DVT prophylaxis if hemoglobin stable Attestations 2 Medical Necessity Statement*: May require less than 2 midnight stay for evaluation and treatment of fluid overload and hyperkalemia requiring dialysis. Diagnoses Hyperkalemia E87.5 Diastolic CHF I50.30 End-stage renal disease on hemodialysis N18.6; Z99.2 H/O aortic aneurysm repair Z98.890; Z86.79 Time Spent (min) 54
[2023-07-17 14:50] LABS: Troponin 5 6HR 88.89 ng/L (0-15); Troponin 5 6HR Delta 0.89 ng/L (0-12)
--- NOTE | 2023-07-17 14:54 | USCV_ITS ---
[place] Age: 57 Gender: M : 1965 Exam Date: 07/17/2023 21:03 Ordering Phys: Praveen Beltran MD Technologist: PRERNA Exam Location: [facility] – [place], [place] Indication: hypoxia in the 85% range. No history of cardiac intervention per patient. BP: 171 / 96 HR: 82 Rhythm: Sinus Technical Quality: Adequate MEASUREMENTS (Male / Female) Normal Values 2D ECHO LV Diastolic Diameter PLAX 4.4 cm 4.2 - 5.9 / 3.9 - 5.3 cm IVS Diastolic Thickness 1.5 cm 0.6 - 1.0 / 0.6 - 0.9 cm IVS Systolic Thickness 1.8 cm LVPW Diastolic Thickness 1.3 cm 0.6 - 1.0 / 0.6 - 0.9 cm LVPW Systolic Thickness 1.9 cm LVOT Diameter 2.0 cm LV Ejection Fraction 2D Teich 69.3 % LV Ejection Fraction MOD 2C 57.2 % Aorta at Sinotubular Diameter 3.3 cm IVC Diameter 0.9 cm M-MODE LA Ao Ratio MM 1.1 AV Cusp Separation MM 2.2 cm DOPPLER AV Area Cont Eq vti 2.3 cm squared AV Area Cont Eq pk 2.3 cm squared MV Area PHT 3.1 cm squared Mitral E to A Ratio 0.7 FINDINGS Left Ventricle Left ventricle is normal in size. LV systolic function is normal with EF of 55 to 60%. No regional wall motion abnormalities are seen. Grade 1 diastolic dysfunction. Right Ventricle Normal in size and function Right Atrium Normal in size Left Atrium Normal in size Mitral Valve Structurally normal mitral valve. Aortic Valve Aortic valve is thickened and calcified. No significant stenosis. Tricuspid Valve Mild tricuspid regurgitation. Insufficient TR jet to calculate RVSP Pulmonic Valve Not well visualized. Pericardium Normal Aorta Normal in size IVC Appears to be normal CONCLUSIONS LV systolic function is normal with EF of 55 to 60% Grade 1 diastolic dysfunction. Mild tricuspid regurgitation No comparison studies are available. Selwyn Fisher MD (Electronically Signed) Final Date: 18 July 2023 12:37 S
[2023-07-17 14:56] LABS: Hepatitis B Core AB, Total Non-Reactive (Nonreactive); Hepatitis B Surface AB < 3.5 (11.5-1000); Hepatitis B Surface Antigen Non-Reactive (Nonreactive)
[2023-07-17] MEDS: heparin, porcine 1,000 unit/mL INJ 10 mL 1000 UNIT IV (17:17)
--- NOTE | 2023-07-17 17:28 | PC.HD ---
Dialysis consent signed by patient. Heparin 1000 units administered via venous port of HD catheter 3 minutes prior to treatment initiation per cylinder inspector's orders.
--- NOTE | 2023-07-17 19:48 | PC.NURSE ---
Addendum entered by Keyana Briggs RN 07/17/23 20:11: PRN Hydralazine ordered. Original Note: Patient is currently in hemodialysis. His blood pressure is currently 175/103. The dialysis nurse said it has been running this high the whole time during dialysis. He has a history of hypertension, but states he took all of his blood pressure medications at home this morning. I do not have anything PRN to give him. Dr. Swanson notified.
[2023-07-17] MEDS: epoetin alfa 1000 Unit/0.05 mL (ESRD) 20000 UNIT IVP (20:58)
[2023-07-17] MEDS: heparin, porcine 1,000 unit/mL INJ 10 mL 10000 UNIT INTRACATH (20:58)
[2023-07-17] MEDS: heparin 5,000 unit/mL INJ 1 mL 5000 UNIT SUBCUT (21:08)
[2023-07-18] VITALS (12 sets, daily range): BP systolic 157–181; BP diastolic 81–98; PULSE 67–104; RESP 15–18; TEMP 36.7–36.8; O2SAT 95–97
[2023-07-18] MEDS: hyDRALAzine 20 mg/mL INJ 1 mL 10 MG IVP (01:39)
[2023-07-18 04:31] LABS: Basophils % 0.1 %; Hematocrit 25.4 % (37-53); Lymphocytes # 0.9 10^3/uL (0.8-4.8); Lymphocytes % 10.4 %; Mean Corpuscular HGB Conc 29.9 g/dL (30-55); Mean Corpuscular Volume 93.7 fl (82-101); Mean Platelet Volume 9.6 fL (7.4-10.4); Monocytes # 0.4 10^3/uL (0.2-0.9); Monocytes % 4.4 %; Neutrophils # 7.13 10^3/uL (1.8-7.7); Neutrophils % 83.9 %; Nucleated Red Blood Cells % 0 %; Platelet Count 421 10^3/cmm (157-399); Red Blood Count 2.71 10^6/uL (3.85-5.65); Red Cell Distribution Width 16.7 % (12.1-15.1); White Blood Count 8.49 10^3/uL (3.29-11.43)
[2023-07-18 04:56] LABS: Alanine Aminotransferase 8 U/L (0-41); Albumin Level 3.1 g/dL (3.5-5.2); Alkaline Phosphatase 92 U/L (40-130); Aspartate Amino Transferase 18 U/L (0-40); Blood Urea Nitrogen 40 mg/dL (6-20); Calcium 8.4 mg/dL (8.5-10.5); Carbon Dioxide 26 mmol/L (22-29); Chloride 95 mmol/L (98-107); Globulin 3.4 g/dL (1.3-4.6); Glomerular Filtration Rate 9.3 mL/min (90-130); Glucose 123 mg/dL (65-115); Magnesium 2.2 mg/dL (1.7-2.3); Osmolality Calculated 295 mOsm/kg (285-295); Sodium 137 mmol/L (136-145); Total Bilirubin 0.3 mg/dL (0.15-1.2); Total Protein 6.5 g/dL (6.6-8.7)
--- OUTSIDE RECORDS SUMMARY | 2023-07-18 05:43 | XMS_ITS | Continuity of Care Document ---
Author Name Unknown Organization [facility] Address [id number] [address] Phone Care Team Providers Care Pack Master Name Role Phone April Metzger Unavailable Unavailable Allergies, Adverse Reactions, Alerts Substance Reaction Status Criticality No Known Allergies Active No Inform ation Medications Medication Instructions Dosage Effective Dates (start - stop) Status Comments levothyroxine 50 mcg tablet Take 1 tablet by mouth once daily - Active lisinopril 40 mg tablet Take 1 tablet by mouth once daily - Active metoprolol tartrate 100 mg tablet TAKE 1 TABLET BY MOUTH TWICE DAILY WITH MEALS - Active amlodipine 10 mg tablet Take 1 tablet by mouth once daily - Active hydroxyzine pamoate 25 mg capsule take 1 capsule by oral route every 8 hours as needed for anxiety - Active furosemide 40 mg tablet take 1 tablet by oral route every day 40 MG - Active Aspir-81 mg tablet,delayed release take 1 tablet by oral route every day - Active OTC levothyroxine 50 mcg tablet Take 1 tablet by mouth once daily - No Longer Active Procedures Procedure Date SBIRT - AUDIT/DAST, 15-30 MIN PREV VISIT, EST, AGE 40-64 COMPLETE CBC W/AUTO DIFF WBC COMPREHEN METABOLIC PANEL GLYCOSYLATED HEMOGLOBIN TEST HG A1C LEVEL LT 7.0% LIPID PANEL ASSAY THYROID STIM HORMONE ROUTINE VENIPUNCTURE OFFICE/OUTPATIENT VISIT EST ASSAY OF FREE THYROXINE ROUTINE VENIPUNCTURE OFFICE/OUTPATIENT VISIT EST OFFICE/OUTPATIENT VISIT EST COMPLETE CBC W/AUTO DIFF WBC COMPREHEN METABOLIC PANEL GLYCOSYLATED HEMOGLOBIN TEST HG A1C LEVEL LT 7.0% LIPID PANEL ASSAY OF FREE THYROXINE ASSAY THYROID STIM HORMONE ROUTINE VENIPUNCTURE OFFICE/OUTPATIENT VISIT EST ROUTINE VENIPUNCTURE COMPREHEN METABOLIC PANEL OFFICE/OUTPATIENT VISIT EST ROUTINE VENIPUNCTURE URINALYSIS AUTO W/O SCOPE COMPLETE CBC W/AUTO DIFF WBC COMPREHEN METABOLIC PANEL GLYCOSYLATED HEMOGLOBIN TEST HG A1C LEVEL LT 7.0% LIPID PANEL ASSAY OF FREE THYROXINE ASSAY THYROID STIM HORMONE ROUTINE VENIPUNCTURE OFFICE/OUTPATIENT VISIT EST ASSAY THYROID STIM HORMONE ASSAY OF FREE THYROXINE LIPID PANEL TESTOSTERONE, FREE (DIALYSIS) AND TOTAL, MS OFFICE/OUTPATIENT VISIT EST COMPREHEN METABOLIC PANEL GLYCOSYLATED HEMOGLOBIN TEST HG A1C LEVEL LT 7.0% LIPID PANEL ESTRADIOL ASSAY THYROID STIM HORMONE ROUTINE VENIPUNCTURE TESTOSTERONE, FREE (DIALYSIS) AND TOTAL, MS OFFICE/OUTPATIENT VISIT EST NO CHARGE NO CHARGE NO CHARGE OFFICE/OUTPATIENT VISIT, NEW Advance Directives Directive Yes / No Effective Date File Name No Information Encounters Encounter Description Practice Location Reason(s) For Visit Diagnoses Date Provider Providers Copied on Encounter [facility], [id number]- [place], [id number], [place] tel:[phone] [facility] No Information 3 [address] Sheetsn. [address] [place], [address], [place]. tel:[phone] [facility], [id number] [id number], [address], [place] tel:[phone] [facility] No Information 3 Geena Kwok. [address] [place], [place], [id number], [place]. tel:[phone] PREV VISIT, EST, AGE 40-64 [facility], [id number]- [place], [place], [address], [place] tel:[phone] [facility] Med Refill (chief complaint)hyp ertension (chief complaint)hyp othyroidism (chief complaint)anx iety (chief complaint) Essential hypertension Hypothyroidi sm, unspecified typePersonal history of endo, nutritional and metabolic diseaseEncou nter for general adult medical examination without abnormal findingsAnxi ety disorder, unspecifiedH yperlipidemi a, unspecified 3 Geena Kwok. [address] [place], [place], [address], [place]. tel:[phone] Referring Provider: Rissa Seay, [address] [place], [address] . tel:[phone] OFFICE/OUTPA TIENT VISIT EST [facility], [id number] [place], [address], [place] tel:[phone] [facility] Thyroid Follow Up (chief complaint)Hyp erlipidemia (chief complaint)hyp ertension (chief complaint) Hypothyroidi sm, unspecified typeEssentia l hypertension Hyperlipidem ia, unspecified hyperlipidem ia type 3 Geena Kwok. [address], [place], [address], [place]. tel:[phone] Referring Provider: Rissa Seay, [address] [place] [address], [address] . tel:[phone] OFFICE/OUTPA TIENT VISIT [facility], [id number] [place], [address], tel:[phone] [facility] stopped atorvastatin (chief complaint)hyp ertension (chief complaint)will tation (chief complaint) Essential hypertension AnxietyHyper lipidemia, unspecified hyperlipidem ia type 2 Geena Kwok. [address] [place] [address], [id number], [place]. tel:[phone] Referring Provider: Rissa Seay, [address] [place] [address], [address] . tel:[phone] OFFICE/OUTPA TIENT VISIT [facility], [id number] [place]0717[place], [address], [place] tel:[phone] [facility] hypertension (chief complaint)hyp othyroidism (chief complaint) Abnormal kidney function studyEssenti al hypertension Hyperlipidem ia, unspecified hyperlipidem ia typeHypothyr oidism, unspecified typePersonal history of endo, nutritional and metabolic disease 2 Geena Kwok. [address], [place], [address], [place]. tel:[phone] Referring Provider: Rissa Seay, [address] [place] [address], [address] . tel:[phone] OFFICE/OUTPA TIENT VISIT [facility], [id number]- [place], [address], [place] tel:[phone] [facility] Anxiety (chief complaint)hyp ertension (chief complaint) Current mild episode of major depressive disorder without prior episodeAnxie tyEssential hypertension Abnormal kidney function studyPersona l history of endo, nutritional and metabolic disease 1 Geena Kwok. [address], [place], [address], [place]. tel:[phone] Referring Provider: Rissa Seay, [address] [place] [address], [address] . tel:[phone] OFFICE/OUTPA TIENT VISIT [facility], [id number] [place]60[place], [address], [place] tel:[phone] [facility] hypertension (chief complaint)dep ression (chief complaint) Current mild episode of major depressive disorder without prior episodeEssen tial hypertension Hyperlipidem ia, unspecified hyperlipidem ia typeHypothyr oidism, unspecified typePersonal history of endo, nutritional and metabolic disease 1 Geena Kwok. [address], [place], [address], [place]. tel:[phone] Referring Provider: Rissa Seay, [address] [place] [address], [address] . tel:[phone] OFFICE/OUTPA TIENT VISIT [facility], [id number] [id number], [place], [address], [place] tel:[phone] [facility] HTN F/U (chief complaint)Fol low Up of hypertension (chief complaint)dep ression (chief complaint) Essential hypertension Current mild episode of major depressive disorder without prior episodeAnxie tyAndrogen deficiencyHy perlipidemia , unspecified hyperlipidem ia typeHypothyr oidism, unspecified typePersonal history of endo, nutritional and metabolic disease 0 Geena Kwok. [address] [place] [address], [id number], [place]. tel:[phone] Referring Provider: Rissa Seay, [address] [place] [address], [address] . tel:[phone] OFFICE/OUTPA TIENT VISIT [facility], [id number] [place]69[place], [place], [address], tel:[phone] [facility] hypertension (chief complaint)dep ression (chief complaint)and rogen deficiency (chief complaint) Current mild episode of major depressive disorder without prior episodeAnxie tyEssential hypertension Hyperlipidem ia, unspecified hyperlipidem ia typeHypothyr oidism, unspecified typeAndrogen deficiencyPe rsonal history of endo, nutritional and metabolic disease 0 Geena Kwok. [address] [place] [address], [id number], [place]. tel:[phone] Referring Provider: Rissa Seay, [address] [place] [address], [address] . tel:[phone] OFFICE/OUTPA TIENT VISIT [facility], [id number] [place]738[place], [place], [address], tel:[phone] [facility] Follow Up of hypertension (chief complaint)anx iety (chief complaint) Essential hypertension Anxiety 0 Geena Kwok. [address] [place] [address], [id number], [place]. tel:[phone] Referring Provider: Rissa Seay, [address] [place], [address] . tel:[phone] [facility], [id number]- [place], [address], [place] tel:[phone] [facility] No Information 0 No Information [facility], [id number] 91567[place], [place], [address], [place] tel:[phone] [facility] No Information 0 Geena Kwok. [address], [place], [address], [place]. tel:[phone] Referring Provider: Rissa Seay, [address] [place], [address] . tel:[phone] [facility], [id number] 5679[place]DFP[place], [place], [address], [place] tel:[phone] [facility] No Information 0 No Information OFFICE/OUTPA TIENT VISIT, [facility], [id number] 0866[place], [place], [address], [place] tel:[phone] [facility] Establish care (chief complaint)hyp ertension (chief complaint)hyp erlipidemia (chief complaint)hyp othyroidism (chief complaint)dep ression (chief complaint) Essential hypertension Hyperlipidem ia, unspecified hyperlipidem ia typeHypothyr oidism, unspecified typeCurrent mild episode of major depressive disorder without prior episodeEncou nter to establish care 0 Geena Kwok. [address], [place], [address], [place]. tel:[phone] Referring Provider: Rissa Seay, [facility] [place], [address] . tel:[phone] Family History Family Member Type Diagnosis Age At Onset No Information Payers Payer name Insurance type Covered alliance party ID Yoan bhagat(dinh Campbell [facility] [id number] Social History Type Description Quantity Date Captured Comments Sex Male Smoking Status No Information Sexual Orientation Decline To Specify Gender Identity Male Chief Complaint And Reason For Visit No Information Reason For Referral Reason For Referral No Information Plan Of Treatment Date Type Action Status Goal Tobacco cessation counseling completed Goal Tobacco cessation counseling completed Goal Tobacco cessation counseling completed Goal Tobacco cessation counseling completed Goal Dietary management education , guidance, and counseling completed Goal Tobacco cessation counseling completed Goal Tobacco cessation counseling completed Goal Dietary management education , guidance, and counseling completed Goal Tobacco cessation counseling completed Goal Dietary management education , guidance, and counseling completed Goal Tobacco cessation counseling completed Goal Dietary management education , guidance, and counseling completed History Of Present Illness Encounter Date Complaint History Of Prese nt Illness hypertension The HTN started in 2007. Risk factors include depression, family history HTN, gout or CAD, male gender and smoking. hypothyroidism Pt denies sympto ms of agitation, palpitations, temperature intolerance, hair loss, or weight gain/loss. Med Refill F/U on meds so h e can get them refilled. anxiety The client prese nts with anxious/fearful thoughts and racing thoughts but denies compulsive thoughts, depressed mood, difficulty concentrating, difficulty falling asleep, difficulty staying asleep, diminished interest or pleasure, excessive worry, fatigue, hallucinations or thoughts of or suicide. The anxiety is associated with headache and irritability. The client denies any nausea and vomiting. Additional information: Pt stopped buspirone due to increased dizziness. He is having increased irritability since stopping. Thyroid Follow Up Pt reports col d intolerance. Pt denies symptoms of agitation, palpitations, hair loss, or weight gain/loss. Pt doing well with current levothyroxine dose Hyperlipidemia Risk factors inc lude age over 50, depression, family history of CAD, family history of HTN and smoking. Pertinent negatives include chest pain, constipation, diarrhea, dyspnea, hematuria, nausea, palpitations, vomiting. hypertension The HTN started in 2007. Risk factors include depression, family history HTN, gout or CAD, male gender and smoking. Pertinent negatives include chest pain, dyspnea, fatigue, headache, hematuria, irregular heartbeat/palpitations, nausea and vomiting. Additional information: Pt doing well with current medication hypertension The HTN started in 2007. Risk factors include depression, family history HTN, gout or CAD, male gender and smoking. Associated symptoms include irregular heartbeat/palpitations. Pertinent negatives include chest pain, dyspnea, fatigue, headache, hematuria, nausea and vomiting. agitation Pt reports he th inks buspirone helps with agitation but he feels funny on it. Pt does not want to take a daily medication at this time. He does not want counseling or to decrease buspirone. stopped atorvastatin Pt reports having leg cramps at night in his calves. This has improved since stopping atorvastatin. hypothyroidism Pt denies sympto ms of agitation, palpitations, temperature intolerance, hair loss, or weight gain/loss. Pt is doing well on levothyroxine hypertension The HTN started in 2007. Risk factors include depression, family history HTN, gout or CAD, male gender and smoking. Pertinent negatives include chest pain, dyspnea, fatigue, headache, hematuria, irregular heartbeat/palpitations, nausea and vomiting. Additional information: HTN well controlled on current medications Anxiety The client prese nts with compulsive thoughts, depressed mood, difficulty staying asleep, diminished interest or pleasure and racing thoughts but denies anxious/fearful thoughts, difficulty concentrating, difficulty falling asleep, excessive worry, hallucinations or thoughts of or suicide. Additional information: Pt states he isn't anxious and thought it was for decreased kidney function. Needs refill on amlodipine. LB. hypertension The HTN started in 2007. Risk factors include depression, family history HTN, gout or CAD, male gender and smoking. Additional information: HTN well controlled with current medications depression The client repor ts functioning as not difficult at all. The client presents with difficulty concentrating but denies anxious/fearful thoughts, compulsive thoughts, difficulty falling asleep, difficulty staying asleep, diminished interest or pleasure, excessive worry, hallucinations, racing thoughts or thoughts of or suicide. The depression is associated with irritability. hypertension The HTN started in 2007. Risk factors include depression, family history HTN, gout or CAD, male gender and smoking. Pertinent negatives include chest pain, dyspnea, fatigue, headache, hematuria, irregular heartbeat/palpitations, nausea and vomiting. Additional information: HTN well controlled on current medications Follow Up of hypertension The HT N started in 2007. Risk factors include depression, family history HTN, gout or CAD, male gender and smoking. Associated symptoms include fatigue. Pertinent negatives include chest pain, epistaxis, headache, irregular heartbeat/palpitations, tinnitus and visual disturbances. depression The client prese nts with compulsive thoughts, difficulty staying asleep and fatigue but denies anxious/fearful thoughts, depressed mood, difficulty concentrating, difficulty falling asleep, diminished interest or pleasure, excessive worry, hallucinations, racing thoughts or thoughts of or suicide. The depression is associated with irritability. The client denies any headache. Additional information: Pt has been off fluoxetine for a few months. He would like to restart due to irritability. HTN F/U hypertension The HTN started in 2007. Risk factors include depression, family history HTN, gout or CAD, male gender and smoking. Pertinent negatives include chest pain, dyspnea, epistaxis, headache, irregular heartbeat/palpitations, nausea, tinnitus, visual disturbances and vomiting. Additional information: Pt BP has been in the upper range of normal depression The patient pres ents with compulsive thoughts, decreased need for sleep, diminished interest or pleasure, feelings of guilt and racing thoughts but denies anxious/fearful thoughts, depressed mood, difficulty concentrating, difficulty falling asleep, difficulty staying asleep, excessive worry, fatigue, hallucinations or thoughts of or suicide. The depression is associated with irritability. The patient denies any headache, nausea and vomiting. Additional information: Pt reports medications are helping but he would like to try an increase buspirone. androgen deficiency Pt has been taking testosterone 3x/week from previous PCP. Labs drawn today to check levels. Follow Up of hypertension The HT N started in 2007. Risk factors include depression, family history HTN, gout or CAD, male gender and smoking. Associated symptoms include irregular heartbeat/palpitations. Pertinent negatives include chest pain, dyspnea, epistaxis, headache, nausea, tinnitus, visual disturbances and vomiting. anxiety This is a follow up visit. The patient presents with anxious/fearful thoughts, compulsive thoughts, depressed mood, excessive worry and increased energy but denies difficulty concentrating, difficulty falling asleep, difficulty staying asleep, fatigue, hallucinations, racing thoughts or thoughts of or suicide. The Follow Up of anxiety is associated with irritability. The patient denies any headache, nausea and vomiting. Additional information: Pt reports he doesn't notice a difference with buspirone. hypertension (comments) Pt repor ts BP numbers are higher in the morning. Pt is concerned his testosterone may be effecting his BP. Establish care Pt was being see n by Dr. Castellano for PCP at [facility] in [place]. Pt would like to transfer to in [place]. hypothyroidism Pt was started o n levothyroxine in 2016. Pt has HTN and anxiety. Pt denies skin or hair changes. Pt has been on this same dose of levothyroxine daily. depression This is an initi al visit. The patient presents with anxious/fearful thoughts, compulsive thoughts, depressed mood, diminished interest or pleasure, excessive worry, racing thoughts and restlessness but denies difficulty falling asleep, difficulty staying asleep, hallucinations, paranoia, poor judgment or thoughts of or suicide. The patient's risk factors include history of depression. The patient's risk factors exclude alcoholism, drug abuse, family history of depression, family history of anxiety, family history of bipolar disorder and history of suicidal attempts. The depression is associated with irritability. Additional information: Pt reports fluoxetine helped in the beginning but not as well anymore. hypertension The HTN started in 2007. Risk factors include depression, family history HTN, gout or CAD, male gender and smoking. The hypertension is exacerbated by anxiety and stress. Associated symptoms include fatigue, headache and visual disturbances. Pertinent negatives include chest pain, diaphoresis, dyspnea, epistaxis, irregular heartbeat/palpitations, nausea, tinnitus and vomiting. hyperlipidemia The diabetes sta rted in 2018. Risk factors include age over 50, depression, family history of CAD, family history of HTN and smoking. The patient is adhering to medication for their hyperlipidemia. Pertinent negatives include chest pain, diaphoresis, dizziness, dyspnea, nausea, palpitations and vomiting. Functional Status Date Functional Assessmen t No Information Instructions Date Instruction Additional Infor mation Continue levothyroxi ne as prescribed.Dose will be adjusted as indicated after lab results received.Call with questions or concerns. Related to Hypothyroidism, unspecified type See #1 above. Related to Perso nal history of endo, nutritional and metabolic disease Physical exam findin gs discussed with pt.Labs drawn today. Pt will be notified of results. POC will be discussed further at that time. Education given on the importance of healthy low carb diet and exercise.Call with questions or concerns. Related to Encounter for general adult medical examination without abnormal findings HTN well controlled on current medications. Continue as prescribed.. Lifestyle modification education completed: encouraged to decrease salt intake, increase activity, and monitor blood pressure periodically.Notify office for blood pressure readings greater than 140 systolic and/or 90 diastolic on more then 2 separate occasions.. Seek immediate care at the nearest emergency room for blood pressure reading greater than 160 systolic and/or greater than 95 diastolic with any chest pain/pressure, shortness of breath, arm, back, or neck/jaw pain, nausea, diaphoresis, headache, numbness/tingling that is new/unilateral, difficulty speaking/swallowing, facial droop, or change in mentation.Pt moving to [place] so will establish care there with new PCP.Call sooner with questions or concerns. Related to Essential hypertension Labs drawn today. Pt will be notified of results. POC will be discussed further at that time.Call with questions or concerns. Related to Hyperlipidemia, unspecified hyperlipidemia type HTN well controlled on current medications. Continue as prescribed. Lifestyle modification education completed: encouraged to decrease salt intake, increase activity, and monitor blood pressure periodically.Notify office for blood pressure readings greater than 140 systolic and/or 90 diastolic on more then 2 separate occasions. Seek immediate care at the nearest emergency room for blood pressure reading greater than 160 systolic and/or greater than 95 diastolic with any chest pain/pressure, shortness of breath, arm, back, or neck/jaw pain, nausea, diaphoresis, headache, numbness/tingling that is new/unilateral, difficulty speaking/swallowing, facial droop, or change in mentation. F/U in 6 months.Call sooner with questions or concerns. Related to Essential hypertension Pt to continue levot hyroxine as prescribed. Labs drawn today. Pt will be notified of results. POC will be discussed further at that time.Levothyroxine dose will be adjusted as indicated.Call with questions or concerns. Related to Hypothyroidism, unspecified type Hypertension education Related t o Essential hypertension Pt to stop atorvasta tin.Pt reports leg cramps have improved since stopping.. F/U in 3-6 months. Labs will be rechecked at that time.Call sooner with questions or concerns. Related to Hyperlipidemia, unspecified hyperlipidemia type Pt to continue buspi rashad 10-20mg TID PRN.Pt declined medication change to daily medication.Pt declined counseling at this time.. Discussed sources of support and positive coping skills pt can utilize to better manage depression and anxiety.. Pt agrees to call 911 or go to the nearest emergency room with concern for harm to self or others.. F/U as needed.Call sooner with questions or concerns. Related to Anxiety HTN well controlled on current medications. Continue as prescribed.. Lifestyle modification education completed: encouraged to decrease salt intake, increase activity, and monitor blood pressure periodically.Notify office for blood pressure readings greater than 140 systolic and/or 90 diastolic on more then 2 separate occasions.. Seek immediate care at the nearest emergency room for blood pressure reading greater than 160 systolic and/or greater than 95 diastolic with any chest pain/pressure, shortness of breath, arm, back, or neck/jaw pain, nausea, diaphoresis, headache, numbness/tingling that is new/unilateral, difficulty speaking/swallowing, facial droop, or change in mentation.. F/U in 6 months.Call sooner with questions or concerns. Related to Essential hypertension Weight control education Related to Essential hypertension Hypertension education Related t o Essential hypertension HTN well controlled on current medications. Continue as prescribed.. Lifestyle modification education completed: encouraged to decrease salt intake, increase activity, and monitor blood pressure periodically.Notify office for blood pressure readings greater than 140 systolic and/or 90 diastolic on more then 2 separate occasions.. Seek immediate care at the nearest emergency room for blood pressure reading greater than 160 systolic and/or greater than 95 diastolic with any chest pain/pressure, shortness of breath, arm, back, or neck/jaw pain, nausea, diaphoresis, headache, numbness/tingling that is new/unilateral, difficulty speaking/swallowing, facial droop, or change in mentation.. F/U in 6 months.Call sooner with questions or concerns. Related to Essential hypertension Continue levothyroxi ne as prescribed.Dose will be adjusted as indicated after lab results received.Call with questions or concerns. Related to Hypothyroidism, unspecified type See #1 above. Related to Abnor mal kidney function study See #1 above. Related to Perso nal history of endo, nutritional and metabolic disease Continue atorvastati n as prescribed.. Labs drawn today. Pt will be notified of results. POC will be discussed further at that time.. F/U in 6 months.Call sooner with questions or concerns. Related to Hyperlipidemia, unspecified hyperlipidemia type Weight control education Related to Essential hypertension Hypertension education Related t o Essential hypertension Labs drawn today. Pt will be notified of results. POC will be discussed further at that time.Will send referral to nephrology if kidney function continues to be decreased.Call sooner with questions or concerns. Related to Abnormal kidney function study HTN well controlled on current medications. Continue as prescirbed.. Lifestyle modification education completed: encouraged to decrease salt intake, increase activity, and monitor blood pressure periodically.Notify office for blood pressure readings greater than 140 systolic and/or 90 diastolic on more then 2 separate occasions.. Seek immediate care at the nearest emergency room for blood pressure reading greater than 160 systolic and/or greater than 95 diastolic with any chest pain/pressure, shortness of breath, arm, back, or neck/jaw pain, nausea, diaphoresis, headache, numbness/tingling that is new/unilateral, difficulty speaking/swallowing, facial droop, or change in mentation.. F/U in 6 months.Call sooner with questions or concerns. Related to Essential hypertension See #1 above. Related to Anxie ty Pt to continue fluox etine and buspirone as prescribed.. Discussed sources of support and positive coping skills pt can utilize to better manage depression and anxiety.. Pt agrees to call 911 or go to the nearest emergency room with concern for harm to self or others.. F/U as needed.Call sooner with questions or concerns. Related to Current mild episode of major depressive disorder without prior episode Weight control education Related to Essential hypertension Hypertension education Related t o Essential hypertension HTN well controlled on current medications. Continue as prescribed.. Labs drawn today. Pt will be notified of results. POC will be discussed further at that time.. Lifestyle modification education completed: encouraged to decrease salt intake, increase activity, and monitor blood pressure periodically.Notify office for blood pressure readings greater than 140 systolic and/or 90 diastolic on more then 2 separate occasions.. Seek immediate care at the nearest emergency room for blood pressure reading greater than 160 systolic and/or greater than 95 diastolic with any chest pain/pressure, shortness of breath, arm, back, or neck/jaw pain, nausea, diaphoresis, headache, numbness/tingling that is new/unilateral, difficulty speaking/swallowing, facial droop, or change in mentation.. F/U in 6 months.Call sooner with questions or concerns. Related to Essential hypertension See #1 above. Related to Hyper lipidemia, unspecified hyperlipidemia type See #1 above. Related to Hypot hyroidism, unspecified type Fluoxetine increased to 40mg daily.. Discussed sources of support and positive coping skills pt can utilize to better manage depression and anxiety.. Pt agrees to call 911 or go to the nearest emergency room with concern for harm to self or others.. F/U in 1 month.Call sooner with questions or concerns. Related to Current mild episode of major depressive disorder without prior episode Weight control education Related to Essential hypertension Hypertension education Related t o Essential hypertension Mental health care education Rel ated to Current mild episode of major depressive disorder without prior episode See #4 above. Related to Hypot hyroidism, unspecified type See #4 above. Related to [place] gen deficiency See #4 above. Related to Perso nal history of endo, nutritional and metabolic disease HTN well controlled on current medications. Continue as prescribed.. Lifestyle modification education completed: encouraged to decrease salt intake, increase activity, and monitor blood pressure periodically.Notify office for blood pressure readings greater than 140 systolic and/or 90 diastolic on more then 2 separate occasions.. Seek immediate care at the nearest emergency room for blood pressure reading greater than 160 systolic and/or greater than 95 diastolic with any chest pain/pressure, shortness of breath, arm, back, or neck/jaw pain, nausea, diaphoresis, headache, numbness/tingling that is new/unilateral, difficulty speaking/swallowing, facial droop, or change in mentation.. F/U in 6 months.Call sooner with questions or concerns. Related to Essential hypertension Continue atorvastati n as prescribed.Labs drawn today. Pt will be notified of results. POC will be discussed further at that time.Call sooner with questions or concerns. Related to Hyperlipidemia, unspecified hyperlipidemia type Pt to restart fluoxe ninoska 20mg daily.Continue buspirone PRN.. Discussed sources of support and positive coping skills pt can utilize to better manage depression and anxiety.. Pt agrees to call 911 or go to the nearest emergency room with concern for harm to self or others.. F/U in 1 month.Call sooner with questions or concerns. Related to Current mild episode of major depressive disorder without prior episode See #1 above. Related to Anxie ty Mental health care education Rel ated to Current mild episode of major depressive disorder without prior episode Dietary management e ducation, guidance, and counseling Related to Essential hypertension Patient advised about exercise R elated to Essential hypertension Weight control education Related to Essential hypertension Hypertension education Related t o Essential hypertension Labs drawn today. Pt will be notified of results.Continue medications as prescribed. Pt will be notified if changes in medications are indicated. F/U in 3 months.Call sooner with questions or concerns. Related to Hyperlipidemia, unspecified hyperlipidemia type See #4 above. Related to Hypot hyroidism, unspecified type See #4 above. Related to [place] gen deficiency Pt to continue with amlodipine, lisinopril, and metoprolol as prescribed. Lifestyle modification education completed: encouraged to decrease salt intake, increase activity, and monitor blood pressure periodically.Notify office for blood pressure readings greater than 140 systolic and/or 90 diastolic on more then 2 separate occasions. Seek immediate care at the nearest emergency room for blood pressure reading greater than 160 systolic and/or greater than 95 diastolic with any chest pain/pressure, shortness of breath, arm, back, or neck/jaw pain, nausea, diaphoresis, headache, numbness/tingling that is new/unilateral, difficulty speaking/swallowing, facial droop, or change in mentation. F/U in 3 months.Call sooner with questions or concerns. Related to Essential hypertension Buspirone increased to up to 60mg daily. Continue fluoxetine as prescribed.Discussed sources of support and positive coping skills pt can utilize to better manage depression and anxiety. Pt agrees to call 911 or go to the nearest emergency room with concern for harm to self or others. F/U in 1 month.Call sooner with questions or concerns. Related to Current mild episode of major depressive disorder without prior episode See #1 above. Related to Anxie ty Mental health care education Rel ated to Current mild episode of major depressive disorder without prior episode Dietary management e ducation, guidance, and counseling Related to Essential hypertension Patient advised about exercise R elated to Essential hypertension Weight control education Related to Essential hypertension Hypertension education Related t o Essential hypertension Buspirone increased to 10mg TID PRN. Discussed sources of support and positive coping skills pt can utilize to better manage anxiety and depression. Pt agrees to call 911 or go to the nearest emergency room with concern for harm to self or others. F/U in 1 month.Call sooner with questions or concerns. Related to Anxiety Amlodipine was incre ased to 10mg at bedtime. Continue with this dose.Metoprolol changed to shorter acting tartrate. Pt to take 100mg twice daily.Pt concerned testosterone may be increasing his BP. Last labs at previous PCP had high levels of serum testosterone. Pt to decrease to 2x/week instead of 3x/week. Will F/U on this at next appointment. Pt to RTC 1-2 times in the next 2 weeks for nurse BP checks. Lifestyle modification education completed: encouraged to decrease salt intake, increase activity, and monitor blood pressure periodically.Notify office for blood pressure readings greater than 140 systolic and/or 90 diastolic on more then 2 separate occasions. Seek immediate care at the nearest emergency room for blood pressure reading greater than 160 systolic and/or greater than 95 diastolic with any chest pain/pressure, shortness of breath, arm, back, or neck/jaw pain, nausea, diaphoresis, headache, numbness/tingling that is new/unilateral, difficulty speaking/swallowing, facial droop, or change in mentation. F/U in 1 month.Call sooner with questions or concerns. Related to Essential hypertension Dietary management e ducation, guidance, and counseling Related to Essential hypertension Patient advised about exercise R elated to Essential hypertension Weight control education Related to Essential hypertension Hypertension education Related t o Essential hypertension Pt to start buspiron e for break through anxiety.Pt to continue current medications as prescribed.Will review previous records when received.F/U in 3 months.Call sooner with questions or concerns. Related to Current mild episode of major depressive disorder without prior episode Continue atorvastati n as prescribed. Records release signed. Will check latest labs once received.Pt to F/U in 1 month. Labs will be drawn at that time if indicated.Call sooner with questions or concerns. Related to Hyperlipidemia, unspecified hyperlipidemia type Continue levothyroxi ne as prescribed. Records release signed. Will check latest labs once received.Pt to F/U in 1 month. Labs will be drawn at that time if indicated.Call sooner with questions or concerns. Related to Hypothyroidism, unspecified type Pt to start amlodipi ne 2.5mg daily. Continue other medications as prescribed. Pt to RTC 1-2 times in the next 2 weeks for nurse BP checks. Lifestyle modification education completed: encouraged to decrease salt intake, increase activity, and monitor blood pressure periodically.Notify office for blood pressure readings greater than 140 systolic and/or 90 diastolic on more then 2 separate occasions. Seek immediate care at the nearest emergency room for blood pressure reading greater than 160 systolic and/or greater than 95 diastolic with any chest pain/pressure, shortness of breath, arm, back, or neck/jaw pain, nausea, diaphoresis, headache, numbness/tingling that is new/unilateral, difficulty speaking/swallowing, facial droop, or change in mentation. F/U in 1 month.Call sooner with questions or concerns. Related to Essential hypertension Dietary management e ducation, guidance, and counseling Related to Essential hypertension Patient advised about exercise R elated to Essential hypertension Weight control education Related to Essential hypertension Hypertension education Related t o Essential hypertension Assessments Type Assessment Date No Information Patient Care Teams Name Effective Dates (start - stop) Status Members No Information
--- OUTSIDE RECORDS SUMMARY | 2023-07-18 05:43 | XMS_ITS ---
Author Name Tasneem Chen Address [address] [place] [address] Phone [phone] Organization [facility], NA DOCUMENT DISCLAIMER Multiple document versions may exist, please be sure you review the latest version. The information in the [facility] Progress Note Document represents a providers documented clinical note containing certain health and medical information. It may not contain the complete medical history for the patient and should be independently verified. The represented time in the document is Eastern Time PROVIDER ROUNDING NOTE COMPREHENSIVE Patient:?Celestine?Bud,?1965,?57y,?M Dialysis?Location:?[facility] Attending?Manager News:?Mary?Nathan Service?Date:?07/12/2023 Service?Provider:?Tasneem?April,?ENVIRONMENTAL MANAGEMENT SPECIALIST I?met?face?to?face?with?the?patient?today. OVERVIEW The?patient?presented?with?ESRD?on?dialysis Primary?cause?of?renal?failure:?Hypertensive?chronic?kidney? disease?with?stage?1?through?stage?4?chronic?kidney?dis ease,?or?unspecified?chronic?kidney?disease Comments:?VSS,?seen?on?HD?machine,?denies?needs?for?me tod Medications?and?labs?reviewed. DIALYSIS?PRESCRIPTION ??IHD?3x?Week?Start?date:?07/10/23 ??Dialyzer:?180NRe?Optiflux ??BFR:?450 ??DFR:?Autoflow?1.5 ??Potassium:?3.0 ??Sodium:?138 ??EDW:?87 ??Duration:?3:30 ??Calcium:?2.5 ??Bicarb:?36 ??Rx?updated?on:?07/07/2023 TREATMENT?ASSESSMENT BP?Stand?Pre ??07/10/2023:?193/106 BP?Sit?Pre ??07/10/2023:?177/90 BP?Stand?Post ??07/10/2023:?179/95 BP?Sit?Post ??07/10/2023:?160/87 Tx?Duration ??07/10/2023:?3:32 Missed?Treatments 0?-?last?30?days 0?-?last?60?days FLUID?ASSESSMENT EDW?(kg) ??07/10/2023:?87.0 Weight?Pre?(kg) ??07/10/2023:?100.0 Weight?Post?(kg) ??07/10/2023:?98.7 PWV?(kg) ??07/10/2023:?11.7 UF?Rate?(mL/kg/hr) ??07/10/2023:?3.7 ACCESS?ASSESSMENT ??Access?Type:?CVCatheter ??Access?SubType:?Tunneled ??Access?Status:?Active?(In?Use)?-?07/07/2023 ??Access?Location:?Chest ??Placed:?06/30/2023 Vascular?access?reviewed. ANEMIA?ASSESSMENT HGB,?TSAT ??07/10/2023:?8.7,?11.0 ?? Ferritin ??07/10/2023:?415.0 Active?Orders:?Iron?Sucrose?(Venofer)?100?mg?Every?Treatment .?Mircera?50?mcg?Every?2?weeks. BMM?ASSESSMENT Comments:?Irrational?in?relation?to?hospital?records:?redrawing today Phosphorus,?Calcium ??07/10/2023:?9.8,?8.0 ?? PTH,?Intact ??07/10/2023:?501.0 NUTRITION?ASSESSMENT Comments:?Labs?incorrect:?redrawing?today Albumin,?Potassium ??07/10/2023:?3.4,?7.0 PHYSICAL?EXAM Exam?Not?Performed. DIAGNOSIS Chief?Complaint:?N18.6?End?stage?renal?disease Patient?data?updated?07/12/2023?at?3:40?PM Signed?By:?April,?Tasneem,?ENVIRONMENTAL MANAGEMENT SPECIALIST??on?07/12/2023?3:43:17 PM END OF DOCUMENT
[2023-07-18] MEDS: amlodipine 10 mg Tablet PO (06:42)
[2023-07-18] MEDS: clopidogrel 75 mg Tablet PO (08:00)
[2023-07-18] MEDS: metoprolol tartrate 50 mg Tablet 100 MG PO (08:00)
[2023-07-18] MEDS: levothyroxine 50 mcg Tablet PO (08:00)
[2023-07-18] MEDS: losartan 50 mg Tablet 25 MG PO ×2 (08:00→09:57)
[2023-07-18] MEDS: heparin 5,000 unit/mL INJ 1 mL 5000 UNIT SUBCUT (08:00)
[2023-07-18] MEDS: aspirin 81 mg EC Tablet PO (08:00)
[2023-07-18] MEDS: pantoprazole DR 40 mg Tablet PO (08:01)
[2023-07-18] MEDS: budesonide 0.5 mg/2 mL Neb INHALATION (08:28)
[2023-07-18] MEDS: ipratropium-albuterol 3 mL Neb INHALATION (08:28)
--- NOTE | 2023-07-18 09:36 | PC.CHAP ---
Pastoral Care Encounter/Spiritual Assessment Type of Contact [] Declined rides supervisor visit [] Patient/Family/Request visit [] Outpatient visit [] Follow-up visit [] Physician referral [] Code/Alert [x] Routine visit [] Staff referral [] Actively dying [] Patient sleeping [x] Family support [] [] Out of room [] Palliative care [] [] Receiving care in room [] Pre-surgical visit [] Trauma [] Long length of stay [] ICU visit [] Other: Relational/Emotional Strength [x] Patient feels connected with others/family/visitors/staff [] Distress [] Loneliness/isolation [] Abandonment Spirituality of Patient [x] Person of [place] [] Attends Temple of their [place] [x] Believes in Prayer [] Reads Bible or Islam materials [] There are Spiritual issues to be addressed Family Preservation Officer Interventions [x] Prayer [] Active listening [] Non-anxious presence [x] Spiritual/emotional support [] Crisis/trauma care [] Spiritual counseling [] Bereavement support [] Provided bereavement packet [] Provided Bible/devotional materials [] Provided toy/stuffed animal, coloring book to patient or family member [] Provided Communion [] Anointing/[place] [] Salvation [x] Completed spiritual assessment [] Other: Impact on Illness or Injury [] Angry [] Fearful [] Anxious [] Often cries [] Exhaustion [] Unable to work [] Unable to attend sikhism [] Unable to walk/stand [] Unable to read [] Unable to drive [] Unable to eat/drink [] Unable to sleep [] Unable to be with family [] Patient intubated [] Other: Summary Time spent with patient 5 min
--- NOTE | 2023-07-18 10:12 | P.PN_ITS ---
Subjective 2 Subjective: on RA denies any complaints Medications: Reviewed: Yes Vitals/I&O/Wt Last Vital Signs Temp 98.3 F 07/18/23 07:52 Pulse 99 07/18/23 08:46 Resp 17 07/18/23 08:28 BP 165/83 07/18/23 09:57 Pulse Ox 97 07/18/23 08:28 O2 Del Method Nasal Cannula 07/18/23 08:28 O2 Flow Rate 3 07/18/23 08:28 07/17/23 07/18/23 07/18/23 22:59 06:59 14:59 Intake Total 1100 / 1100 120 / 1220 240 / 240 Output Total 3500 / 3500 Balance -2400 / -2400 120 / -2280 240 / 240 Weight last 48 hrs Weight 94.347 kg Weight 95 kg Weight 90.718 kg Weight 90.718 kg Physical Exam 2 Narrative: AWAKE , ALERT , + LE edema Data 07/18/23 03:53 07/18/23 03:53 A&P Assessment and plan (1) End-stage renal disease on hemodialysis: Plan 1. End-stage renal disease: On MWF schedule as outpatient, patient now presented with hyperkalemia and volume overload, hypoxic. s/p HD yesterday - ultrafiltration as tolerated 2. Hyperkalemia: Low potassium diet and HD as above, improved 3. Anemia: s/p NAJMA with HD 4. Acute on chronic respiratory failure,off O2 5. History of hypertension, blood pressures elevated on presentation, resume home meds 6. History of recent abdominal aortic aneurysm repair Patient evaluated using audiovisual cart. Time spent 20 minutes. plan to dc home and hd in am Attestations 2 Medical Necessity Statement*: per twin Coding Level of Care Code Acute Code for Chg Fwd Diagnoses End-stage renal disease on hemodialysis N18.6; Z99.2
--- NOTE | 2023-07-18 11:22 | PC.NURSE ---
Dialysis diet education provided to patient and his at this time. Handout information was also provided by this nurse. Basting Cleaner is to see patient with further dietary education.
--- NOTE | 2023-07-18 11:46 | P.DS_ITS ---
Discharge Providers Date of Admission: 07/17/23 15:00 Date of Discharge: July 18, 2023 Attending Provider at Admission: Praveen Beltran MD Attending Provider at Discharge: Praveen Beltran MD Primary Care Provider: Florentino Barrera MD Diagnoses at Discharge Discharge Diagnosis (1) End-stage renal disease on hemodialysis: Status: Acute Reason for Visit Reason for Visit: sob Hospital Course Hospital Course Celestine is a 57-year-old white male presenting to the emergency department with complaints of shortness of breath. He had recently been released from the hospital at [facility] after repair of an abdominal aortic aneurysm. Initiation of dialysis was started then and he had been on dialysis about 1 week. On admission he appeared fluid overloaded, and was requiring oxygen. There was no evidence of pneumonia. Troponin was elevated, as expected with renal failure but no significant delta. Dialysis was performed, and he had significant relief of symptoms. His oxygen was able to be weaned down, to room air, and he was able to ambulate without difficulty. It was thought he could be discharged on July 18 with close follow-up with nephrology as well as his primary care provider. Protonix was added to his regimen, dietary visited with him regarding a low potassium diet, and discussion with him regarding restriction of fluids per nephrology instructions. On follow-up we will also get a CBC. Hemoglobin was 7.6 at discharge, with no evidence of ongoing blood loss. He was able to ask questions and agreed with the plan. Echocardiogram was also pending, which can be followed with his primary care provider. Physical Exam Narrative: General exam no distress Neck is supple no lymphadenopathy thyromegaly Cardiovascular regular rate and rhythm without murmur Lungs clear Abdomen is soft Extremities no cyanosis clubbing. 1+ edema was noted. Discharge Data Studies Completed and Pending Completed Studies During Hospitalization Category Date Time Status CT angio chest PE protcl [id number] Stat Cat Scan 07/17/23 07:43 Completed XR chest 1V portable [id number] Stat Exams 07/17/23 07:20 Completed Pending at discharge Category Date Time Status Urinalysis Stat Lab 07/17/23 07:43 Uncollected CV. echo complete* [id number] Routine Ultrasound 07/17/23 14:54 Taken Radiology Impressions Chest X-Ray 07/17/23 07:20 IMPRESSION: There may be minimal atelectasis in the left lung base, new compared to previous exam. Pleural density at the left base likely corresponds to large volume of extrapleural fat confirmed on review of prior CT chest dated 06/28/2023. Laboratory Results WBC 8.49 10^3/uL (3.29-11.43) 07/18/23 03:53 RBC 2.71 10^6/uL (3.85-5.65) L 07/18/23 03:53 Hgb 7.60 g/dL (11.27-16.99) L 07/18/23 03:53 Hct 25.4 % (37-53) L 07/18/23 03:53 MCV 93.7 fl (82-101) 07/18/23 03:53 MCH 28.0 pg (27-33) 07/18/23 03:53 MCHC 29.9 g/dL (30-55) L 07/18/23 03:53 RDW 16.7 % (12.1-15.1) H 07/18/23 03:53 Plt Count 421 10^3/cmm (157-399) H 07/18/23 03:53 MPV 9.6 fL (7.4-10.4) 07/18/23 03:53 Neut % (Auto) 83.9 % 07/18/23 03:53 Lymph % (Auto) 10.4 % 07/18/23 03:53 [place] % (Auto) 4.4 % 07/18/23 03:53 Eos % (Auto) 0.0 % 07/18/23 03:53 Baso % (Auto) 0.1 % 07/18/23 03:53 Neut # (Auto) 7.13 10^3/uL (1.8-7.7) 07/18/23 03:53 Lymph # (Auto) 0.9 10^3/uL (0.8-4.8) 07/18/23 03:53 [place] # (Auto) 0.4 10^3/uL (0.2-0.9) 07/18/23 03:53 Eos # (Auto) 0.0 10^3/uL (0.0-0.8) 07/18/23 03:53 Baso # (Auto) 0.0 10^3/uL (0.0-0.1) 07/18/23 03:53 Nucleated RBC % (auto) 0 % 07/18/23 03:53 Nucleated RBCs # 0.0 /100WBC 07/18/23 03:53 Sodium 137 mmol/L (136-145) 07/18/23 03:53 Potassium 5.0 mmol/L (3.5-5.1) 07/18/23 03:53 Chloride 95 mmol/L (98-107) L 07/18/23 03:53 Carbon Dioxide 26 mmol/L (22-29) 07/18/23 03:53 Anion Gap 21.0 (5-19) H 07/18/23 03:53 BUN 40 mg/dL (6-20) H 07/18/23 03:53 Creatinine 6.2 mg/dL (0.7-1.2) H* 07/18/23 03:53 GFR Calculation 9.3 mL/min (90-130) L 07/18/23 03:53 Glucose 123 mg/dL (65-115) H 07/18/23 03:53 Calculated Osmolality 295 mOsm/kg (285-295) 07/18/23 03:53 Calcium 8.4 mg/dL (8.5-10.5) L 07/18/23 03:53 Magnesium 2.2 mg/dL (1.7-2.3) 07/18/23 03:53 Total Bilirubin 0.3 mg/dL (0.15-1.2) 07/18/23 03:53 AST 18 U/L (0-40) 07/18/23 03:53 ALT 8 U/L (0-41) 07/18/23 03:53 Alkaline Phosphatase 92 U/L (40-130) 07/18/23 03:53 Troponin T Baseline 88 ng/L (0-15) H 07/17/23 08:31 Troponin T 120 Minute 84.39 ng/L (0-15) H 07/17/23 10:52 Delta Troponin T -3.61 ABS# (0-10) L 07/17/23 10:52 Troponin T Hi Sens 6Hr 88.89 ng/L (0-15) H 07/17/23 14:12 Troponin T Hi Sens 6Hr Delta 0.89 ng/L (0-12) 07/17/23 14:12 Total Protein 6.5 g/dL (6.6-8.7) L 07/18/23 03:53 Albumin 3.1 g/dL (3.5-5.2) L 07/18/23 03:53 Globulin 3.4 g/dL (1.3-4.6) 07/18/23 03:53 Hep Bs Antigen Non-reactive (Nonreactive) 07/17/23 08:31 Hep Bs Antibody < 3.5 (11.5-1000) L 07/17/23 08:31 Hep B Core Total Ab Non-reactive (Nonreactive) 07/17/23 08:31 Vitals Last Vital Signs Temp 98.3 F 07/18/23 07:52 Pulse 99 07/18/23 08:46 Resp 17 07/18/23 08:28 BP 165/83 07/18/23 09:57 Pulse Ox 97 07/18/23 08:28 O2 Del Method Nasal Cannula 07/18/23 08:28 O2 Flow Rate 3 07/18/23 08:28 Discharge Plan Discharge Patient Disposition: Home Condition: Stable Prescriptions: New pantoprazole 40 mg Tablet,Delayed Release (Dr/Ec) 40 mg PO DAILY Qty: 30 0RF losartan 50 mg Tablet 50 mg PO DAILY Qty: 30 0RF Continued metoprolol tartrate 100 mg tablet 100 mg PO BID clopidogrel 75 mg Tablet 75 mg PO DAILY Aspir-81 81 mg Tablet,Delayed Release (Dr/Ec) 81 mg PO DAILY amlodipine 10 mg tablet 10 mg PO QAM levothyroxine 50 mcg tablet 50 mcg PO DAILY Discontinued losartan 25 mg tablet 25 mg PO DAILY Discharge Orders: Discharge Order (Routine); Ordered 07/18/23 Ordered By: Praveen Beltran Referrals: Florentino Barrera MD [Primary Care Provider] - 4-7 days (CBC on follow-up) Discharge Activity: Increase activity as tolerated Patient Instructions: Dialysis Diet (DC), Hemodialysis (DC), Opioid Safety Activity Restrictions/Additional Instructions: Take all medicine as prescribed Follow-up with your dialysis tomorrow, boiler out Low potassium diet, renal diet, limit your fluids per dietary/nephrology instruction Discharge Attestations Time Spent in Discharge Care*: greater than 30 min Quality Metrics Clinical Quality Measures [ No reported AMI, CVA or VTE this stay] Coding Level of Care Code 72860 Total time (in minutes) for Discharge: 37 Diagnoses End-stage renal disease on hemodialysis N18.6; Z99.2
== END 2023-07-18 12:37 | disposition home or self-care (01) ==
LOC: ER 11:51 → ER IP 07-18 05:41 → MEDSURG 07-18 05:41
PROVIDERS: Hospitalist; Admitting Provider Internal Medicine; Emergency Provider Family Medicine; PCP Family Medicine; Visit Provider Internal Medicine
DX: N18.6 End stage renal disease (principal); Z99.2 Dependence on renal dialysis; D63.1 Anemia in chronic kidney disease; E87.5 Hyperkalemia; J96.20 Acute and chronic respiratory failure, unspecified whether with hypoxia or hypercapnia; I10 Essential (primary) hypertension; E03.9 Hypothyroidism, unspecified; Z87.891 Personal history of nicotine dependence; Z79.82 Long term (current) use of aspirin
CPT/HCPCS: 36415; 71045; 71275; 80053; 83735; 84484; 85014; 85018; 85025; 86705; 86706; 87340; 90935; 93005; 93306; 94640; 96365; 96372; 96374; 96375; 99285; G0378; J0360; J1100; J1644; J3490; J7613; J7626; Q3014; Q4081; Q9967

== ENCOUNTER 2023-09-25 11:44 | Inpatient (IN) | payer OTHER, SELFPAY ==
[2023-09-25] VITALS (29 sets, daily range): BP systolic 153–179; BP diastolic 85–146; PULSE 67–87; RESP 10–26; TEMP 36–36.9; O2SAT 90–98; BMI 30.4; BMI 27.0
--- NOTE | 2023-09-25 12:31 | PC.NURSE ---
PT O2 READING AT 89%, THIS NURSE CHECKED ON PT. PT WEARING O2 AT 3L VIA NC, PT REPORTS BEING COLD. THIS NURSE CHECKED LINE AND ENSURE PROPER PLACEMENT OF SAT LEAD, PT GIVEN WARM BLANKET. O2 SAT THEN UP TO 94% VIA 3L NC. PT REPORTS DURING STAY IN HOSPITAL ON MONDAY PT WAS CALLED A CODE BLUE D/T LOW OXYGEN LEVELS AND WAS PLACED ON OXYGEN AT THAT TIME, PT REPORTS BEING WEANED OFF OF O2 AND SENT HOME WITH NO OXYGEN. PT HERE REQUIRING OXYGEN AT 3L NC AT THIS TIME. PT REPORTS THAT PT GETS EASILY OUT OF BREATH WITH EXERTION.
--- NOTE | 2023-09-25 12:53 | XRR_ITS ---
PROCEDURE INFORMATION: Exam: XR Chest Exam date and time: 09/25/2023 1:02 PM Age: 58 years old Clinical indication: Shortness of breath; Additional info: Hypoxia TECHNIQUE: Imaging protocol: Radiologic exam of the chest. Views: 1 view. COMPARISON: CT angio chest PE protcl [id number] 07/17/2023 9:34 AM FINDINGS: Tubes, catheters and devices: Right internal jugular central line tip is in the mid SVC. Lungs: There is ground-glass opacity in the lower lungs, greater on the right. Pleural spaces: No pneumothorax. Lateral costophrenic sulci are blunted. Heart/Mediastinum: There is moderate enlargement of the cardiac silhouette. Bones/joints: Bones are unremarkable. XR/XR chest 1V portable [id number] IMPRESSION: 1. Dependent opacity in the lower lungs bilaterally, greater on right. Findings likely represent some combination of atelectasis and pulmonary edema. Infection cannot be excluded. Findings are mildly progressive since 07/17/2023. 2. Small bilateral pleural effusions are present.
--- NOTE | 2023-09-25 12:53 | PC.PHAR ---
pts states she takes care of the pts medications-pts states the pt takes plavix 75mg daily ext doesnt show when last filled pts states the pt has a build up and takes daily-pts states the pts pantoprazole 40mg daily was dced- states to leave trazodone 50mg hs prn ext shows last filled 08/01/23 30d/s pt states trazodone doesnt work-notes are made in the pharmacy comments
--- NOTE | 2023-09-25 12:54 | PC.NURSE ---
PT O2 CONTINUES TO FLUCTUATE BETWEEN 88% AND 90% ON 3L. PROVIDER CHRISTIANNE NOTIFIED AND DISCUSSED, PT PLACED ON 4L NC, THIS NURSE REAPPLIED AN O2 LEAD ADN O2 IS CURRENTLY AT 91% ON 4L NC. PT REPORTS HAVING A CLOTTING ISSUE WHERE HIS BLOOD CLOTS ACCORDING TO PT AND SPOUSE. DENIES HX OF DVT AND DENIES HX OF PE.
--- NOTE | 2023-09-25 13:00 | ED_ITS ---
Documented by User: DONTE Araiza 09/25/23 15:27 HPI - General Adult 2 General: Chief complaint: General Medical Stated complaint: port opened up on chest, post-op Time Seen by Provider: 09/25/23 11:54 Source: patient Mode of arrival: ambulatory Limitations: no limitations History of Present Illness: Patient is a 58 year old male with past medical history of hypertension, recent ruptured infrarenal abdominal aortic aneurysm repair with endograft, end-stage renal disease on dialysis MWF via right tunneled catheter (although he just received a peritoneal dialysis catheter to do home dialysis) who presented to the emergency department complaining of bleeding under the dressing of his recent peritoneal dialysis site. Patient states he had to be placed on dialysis due to redirected blood flow from the ruptured aneurysm. Last dialysis was on Monday. He was scheduled for dialysis today. Upon arrival he was noted to be hypoxic in the low to mid 80s although did not appear in any acute distress. He states he was admitted here in Jun due to similar symptoms and states they kept him in the hospital in [place] an extra day after his catheter insertion due to hypoxia but reportedly was weaned off O2 and sent home. He does not overly feel short of breath but states he gets short of breath with menial exertion. Last echo here in Jun showing EF of 55-60%. Associated symptoms: Deny chest pain, dyspnea, headache(s), malaise, nausea, palpitations, syncope or vomiting Review of Systems 2 Const: Denies: fever(s), chills, body aches, fatigue or malaise Card: Reports: dyspnea on exertion; Denies: chest pain, palpitations, irregular heart rhythm, edema, lightheadedness, syncope or pre-syncope Resp: Denies: dyspnea, productive cough, non-productive cough, wheezing, pain on inspiration, hemoptysis or chest congestion GI: Denies: abdominal pain, nausea, vomiting or diarrhea Skin/Breast: Reports: other (bleeding from peritoneal dialysis site) Neuro: Denies: headache(s), numbness in extremities, weakness in extremities or sensory changes PFSH ED 2 PFSH: Medical History Hypothyroidism Hypertension Surgical History H/O aortic aneurysm repair Social History Smoking and tobacco/nicotine status: former use of tobacco/nicotine Alcohol intake: never Physical Exam 2 Const: COMMON NORMALS: no acute distress, average body habitus, patient oriented x3, no limitations, healthy appearing, alert and well nourished G ENERAL APPEARANCE: cooperative ORIENTATION/CONSCIOUSNESS: Yes awake, Yes oriented to person, Yes oriented to place and Yes oriented to time OTHER: clinically does not appear in any acute distress but satting mid 80s on room air HENMT: COMMON NORMALS: normocephalic and atraumatic HEAD & SCALP: normal to inspection, normocephalic and atraumatic Neck/C-Spine: COMMON NORMALS: no JVD and No carotid bruits GENERAL: Yes normal visual inspection Chest: Chest images (male): 1. recent peritoneal dialysis catheter site with surrounding ecchymosis; small blood clot noted under bandage but no active bleeding noted 2. right tunneled HD catheter appears no rmal Resp: COMMON NORMALS: normal respiratory effort and clear to auscultation bilaterally EFFORT & INSPECTION: Yes able to speak in complete sentences and Yes respiratory distress (hypoxia) AUSCULTATION: clear to auscultation bilaterally Cardio: COMMON NORMALS: no JVD, regular rate and regular rhythm RATE: r egular rate RHYTHM: regular rhythm GI: COMMON NORMALS: Soft to palpation and non-tender PALPATION: Yes Soft to palpation : COMMON NORMALS: Yes no CVA tenderness BLADDER/KIDNEY EXAM: Yes no CVA tenderness Back/Pelvis: COMMON NORMALS: no CVA tenderness and thoracic and lumbar spine normal to inspection Extremity: GENERAL: Yes normal exam except as noted and Yes edema (bilateral symmetrical pitting edema) OTHER: distal DP/PT pulses intact bilaterally Neuro: FRANKIE COMA SCALE: document GCS findings Frankie coma scale eye opening: Spontaneous [place] coma scale verbal response: Orientated Frankie coma scale motor response: Obey commands [place] coma scale total score: 15 COMMON NORMALS: patient oriented x3, moves all extremities, no focal motor deficits and no sensory deficits noted SENSORIUM/ORIENTATION: Yes alert, Yes oriented to person, Yes oriented to place and Yes oriented to time Skin: COMMON NORMALS: no rashes or lesions noted GENERAL SKIN EXAM: no rashes or lesions noted Course 2 Consultations: Consultation #1: Dr. Reilly-accepts admit to [facility]-would like me to consult nephrology (do not have [facility] beds so he was okay with med surg) Consultation #2: Dr. LopezLqhourr-hykasaxole-dxha consult/dialysis today Vital Signs: Vital signs: Vital Signs Temperature 98.2 F 09/25/23 11:48 Pulse Rate 72 09/25/23 14:30 Respiratory Rate 20 H 09/25/23 12:30 Blood Pressure 164/91 09/25/23 15:00 Pulse Oximetry 90 09/25/23 15:00 Oxygen Delivery Me thod Nasal Cannula 09/25/23 15:00 Oxygen Flow Rate 4 09/25/23 15:00 MDM - General Adult Medical Decision Making Patient is a 58-year-old male with an extensive past medical history here with a main complaint of bleeding to his recent peritoneal dialysis catheter site however he was noted to be hypoxic upon arrival to the ED. Patient missed dialysis today. He is requiring 4 L of oxygen at this time. His CBC/hemoglobin looks okay. His creatinine is 8.9. BNP is over 35,000. CXR showing fluid overload. D-dimer is significantly elevated. CTA imaging obtained. Due to his new oxygen requirement he will be hospitalized. I spoke to Dr. Reilly who will admit patient. Nephrology has been consulted for dialysis. Dr. Ellis aware of patient will place admit orders. Medical Records I reviewed the patient's medical records. Lab Data I reviewed the patient's lab results. 09/25/23 13:26 09/25/23 13:26 Radiology Impressions Chest X-Ray 09/25/23 12:53 IMPRESSION: 1. Dependent opacity in the lower lungs bilaterally, greater on right. Findings likely represent some combination of atelectasis and pulmonary edema. Infection cannot be excluded. Findings are mildly progressive since 07/17/2023. 2. Small bilateral pleural effusions are present. Laboratory Results WBC 8.81 10^3/uL (3.29-11.43) 09/25/23 13: RBC 3.84 10^6/uL (3.85-5.65) L 09/25/23 13: Hgb 11.10 g/dL (11.27-16.99) L 09/25/23 13: Hct 36.1 % (37-53) L 09/25/23 13:26 MCV 94.0 fl (82-101) 09/25/23 13:26 MCH 28.9 pg (27-33) 09/25/23 13:26 MCHC 30.7 g/dL (30-55) 09/25/23 13:26 RDW 16.2 % (12.1-15.1) H 09/25/23 13:26 Plt Count 309 10^3/cmm (157-399) 09/25/23 13:26 MPV 9.6 fL (7.4-10.4) 09/25/23 13:26 Neut % (Auto) 69.8 % 09/25/23 13:26 Lymph % (Auto) 17.4 % 09/25/23 13:26 [place] % (Auto) 5.7 % 09/25/23 13:26 Eos % (Auto) 5.2 % 09/25/23 13:26 Baso % (Auto) 1.6 % 09/25/23 13:26 Neut # (Auto) 6.15 10^3/uL (1.8-7.7) 09/25/23 13:26 Lymph # (Auto) 1.5 10^3/uL (0.8-4.8) 09/25/23 13:26 [place] # (Auto) 0.5 10^3/uL (0.2-0.9) 09/25/23 13:26 Eos # (Auto) 0.5 10^3/uL (0.0-0.8) 09/25/23 13:26 Baso # (Auto) 0.1 10^3/uL (0.0-0.1) 09/25/23 13:26 Nucleated RBC % (auto) 0 % 09/25/23 13: Nucleated RBCs # 0.0 /100WBC 09/25/23 13:26 D-Dimer 5.24 ug/mLFEU (0-0.59) H 09/25/23 13:26 Specimen Type Arterial 09/25/23 14:05 Sample Site Radial, left 09/25/23 14:05 ABG pH 7.50 (7.35-7.45) H 09/25/23 14:05 ABG pCO2 35.8 mmHg (35-45) 09/25/23 14:05 ABG pO2 54.1 mmHg (80.0-100.0) L 09/25/23 14:05 ABG PO2/FiO2 Ratio 0 09/25/23 14:05 ABG HCO3 27.9 mmol/L (22-26) H 09/25/23 14:05 ABG O2 Saturation 89.3 09/25/23 14:05 ABG Base Excess 4.6 mmol/L (-2.0-2.0) H 09/25/23 14:05 Stephon Test Pos 09/25/23 14:05 A-a O2 Gradient 20.4 mmHg (5-10) H 09/25/23 14:05 Hematocrit 32.0 % (42-52) L 09/25/23 14:05 Hgb O2 Saturation 87.4 % (95-100) L 09/25/23 14:05 Carboxyhemoglobin 2.0 %THgb (0.4-20.1) 09/25/23 14:05 Methemoglobin 0.1 % (0.4-1.5) L 09/25/23 14:05 Total Hemoglobin 10.4 g/dL (14-18) L 09/25/23 14:05 Sodium 140.0 mmol/L (131-143) 09/25/23 14:05 Potassium 4.0 mmol/L (3.5-5.0) 09/25/23 14:05 Glucose 106.0 mg/dL (70-115) 09/25/23 14:05 Ionized Calcium 1.2 mmol/L (1.1-1.4) 09/25/23 14:05 O2 Delivery Device Nc 09/25/23 14:05 O2 Liters/Min 4.0 % 09/25/23 14:05 FiO2 36.0 % 09/25/23 14:05 Field Consultant ID Cak 09/25/23 14:05 Sodium 138 mmol/L (136-145) 09/25/23 13:26 Potassium 4.3 mmol/L (3.5-5.1) 09/25/23 13:26 Chloride 97 mmol/L (98-107) L 09/25/23 13:26 Carbon Dioxide 25 mmol/L (22-29) 09/25/23 13:26 Anion Gap 20.3 (5-19) H 09/25/23 13:26 BUN 46 mg/dL (6-20) H 09/25/23 13:26 Creatinine 8.9 mg/dL (0.7-1.2) H* 09/25/23 13:26 GFR Calculation 6.1 mL/min (90-130) L 09/25/23 13:26 Glucose 109 mg/dL (65-115) 09/25/23 13:26 Calculated Osmolality 298 mOsm/kg (285-295) H 09/25/23 13:26 Calcium 9.4 mg/dL (8.5-10.5) 09/25/23 13:26 Total Bilirubin 0.3 mg/dL (0.15-1.2) 09/25/23 13:26 AST 11 U/L (0-40) 09/25/23 13:26 ALT 9 U/L (0-41) 09/25/23 13:26 Alkaline Phosphatase 96 U/L (40-130) 09/25/23 13:26 NT-Pro-B Natriuret Pep > 00429 pg/mL (0-125) H 09/25/23 13:26 Total Protein 7.2 g/dL (6.6-8.7) 09/25/23 13:26 Albumin 3.8 g/dL (3.5-5.2) 09/25/23 13:26 Globulin 3.4 g/dL (1.3-4.6) 09/25/23 13:26 Procalcitonin 0.90 ng/mL (0-0.5) H 09/25/23 13:26 All radiology interpretation(s) finalized by discharge Discharge Plan Discharge Patient Disposition: Admitted As Inpatient Admit Provider: Juancarlos Swanson Clinical Impression: End-stage renal disease on hemodialysis, H/O aortic aneurysm repair, Hypoxia Condition: Stable Coding Level of Care Code ED Financial Institution Branch Manager for Chg Fwd Documented by User: Radha Lopez MD 09/25/23 22:26 HPI - General Adult 2 General: Chief complaint: General Medical Stated complaint: port opened up on chest, post-op Time Seen by Provider: 09/25/23 11:54 PFSH ED 2 PFSH: Medical History Hypothyroidism Hypertension Surgical History H/O aortic aneurysm repair Social History Smoking and tobacco/nicotine status: former use of tobacco/nicotine Alcohol intake: never Physical Exam 2 Chest: Chest images (male): 1. recent peritoneal dialysis catheter site with surrounding ecchymosis; small blood clot noted under bandage but no active bleeding noted 2. right tunneled HD catheter appears no rmal Neuro: FRANKIE COMA SCALE: document GCS findings Frankie coma scale total score: 15 Course 2 Vital Signs: Vital signs: Vital Signs Temperature 98.2 F 09/25/23 11:48 Pulse Rate 72 09/25/23 14:30 Respiratory Rate 20 H 09/25/23 12:30 Blood Pressure 164/91 09/25/23 15:00 Pulse Oximetry 90 09/25/23 15:00 Oxygen Delivery Me thod Nasal Cannula 09/25/23 15:00 Oxygen Flow Rate 4 09/25/23 15:00 [facility] - General Adult Lab Data 09/25/23 13:26 09/25/23 13:26 Radiology Impressions Chest X-Ray 09/25/23 12:53 IMPRESSION: 1. Dependent opacity in the lower lungs bilaterally, greater on right. Findings likely represent some combination of atelectasis and pulmonary edema. Infection cannot be excluded. Findings are mildly progressive since 07/17/2023. 2. Small bilateral pleural effusions are present. Laboratory Results WBC 8.81 10^3/uL (3.29-11.43) 09/25/23 13:26 RBC 3.84 10^6/uL (3.85-5.65) L 09/25/23 13:26 Hgb 11.10 g/dL (11.27-16.99) L 09/25/23 13:26 Hct 36.1 % (37-53) L 09/25/23 13:26 MCV 94.0 fl (82-101) 09/25/23 13:26 MCH 28.9 pg (27-33) 09/25/23 13: MCHC 30.7 g/dL (30-55) 09/25/23 13: RDW 16.2 % (12.1-15.1) H 09/25/23 13:26 Plt Count 309 10^3/cmm (157-399) 09/25/23 13: MPV 9.6 fL (7.4-10.4) 09/25/23 13:26 Neut % (Auto) 69.8 % 09/25/23 13:26 Lymph % (Auto) 17.4 % 09/25/23 13:26 [place] % (Auto) 5.7 % 09/25/23 13:26 Eos % (Auto) 5.2 % 09/25/23 13:26 Baso % (Auto) 1.6 % 09/25/23 13: Neut # (Auto) 6.15 10^3/uL (1.8-7.7) 09/25/23 13:26 Lymph # (Auto) 1.5 10^3/uL (0.8-4.8) 09/25/23 13:26 [place] # (Auto) 0.5 10^3/uL (0.2-0.9) 09/25/23 13: Eos # (Auto) 0.5 10^3/uL (0.0-0.8) 09/25/23 13: Baso # (Auto) 0.1 10^3/uL (0.0-0.1) 09/25/23 13: Nucleated RBC % (auto) 0 % 09/25/23 13:26 Nucleated RBCs # 0.0 /100WBC 09/25/23 13:26 D-Dimer 5.24 ug/mLFEU (0-0.59) H 09/25/23 13:26 Specimen Type Arterial 09/25/23 14:05 Sample Site Radial, left 09/25/23 14:05 ABG pH 7.50 (7.35-7.45) H 09/25/23 14:05 ABG pCO2 35.8 mmHg (35-45) 09/25/23 14:05 ABG pO2 54.1 mmHg (80.0-100.0) L 09/25/23 14:05 ABG PO2/FiO2 Ratio 0 09/25/23 14:05 ABG HCO3 27.9 mmol/L (22-26) H 09/25/23 14:05 ABG O2 Saturation 89.3 09/25/23 14:05 ABG Base Excess 4.6 mmol/L (-2.0-2.0) H 09/25/23 14:05 Stephon Test Pos 09/25/23 14:05 A-a O2 Gradient 20.4 mmHg (5-10) H 09/25/23 14:05 Hematocrit 32.0 % (42-52) L 09/25/23 14:05 Hgb O2 Saturation 87.4 % (95-100) L 09/25/23 14:05 Carboxyhemoglobin 2.0 %THgb (0.4-20.1) 09/25/23 14:05 Methemoglobin 0.1 % (0.4-1.5) L 09/25/23 14:05 Total Hemoglobin 10.4 g/dL (14-18) L 09/25/23 14:05 Sodium 140.0 mmol/L (131-143) 09/25/23 14:05 Potassium 4.0 mmol/L (3.5-5.0) 09/25/23 14:05 Glucose 106.0 mg/dL (70-115) 09/25/23 14:05 Ionized Calcium 1.2 mmol/L (1.1-1.4) 09/25/23 14:05 O2 Delivery Device Nc 09/25/23 14:05 O2 Liters/Min 4.0 % 09/25/23 14:05 FiO2 36.0 % 09/25/23 14:05 Field Consultant ID Cak 09/25/23 14:05 Sodium 138 mmol/L (136-145) 09/25/23 13:26 Potassium 4.3 mmol/L (3.5-5.1) 09/25/23 13:26 Chloride 97 mmol/L (98-107) L 09/25/23 13:26 Carbon Dioxide 25 mmol/L (22-29) 09/25/23 13:26 Anion Gap 20.3 (5-19) H 09/25/23 13:26 BUN 46 mg/dL (6-20) H 09/25/23 13:26 Creatinine 8.9 mg/dL (0.7-1.2) H* 09/25/23 13:26 GFR Calculation 6.1 mL/min (90-130) L 09/25/23 13:26 Glucose 109 mg/dL (65-115) 09/25/23 13:26 Calculated Osmolality 298 mOsm/kg (285-295) H 09/25/23 13:26 Calcium 9.4 mg/dL (8.5-10.5) 09/25/23 13:26 Total Bilirubin 0.3 mg/dL (0.15-1.2) 09/25/23 13:26 AST 11 U/L (0-40) 09/25/23 13:26 ALT 9 U/L (0-41) 09/25/23 13:26 Alkaline Phosphatase 96 U/L (40-130) 09/25/23 13:26 NT-Pro-B Natriuret Pep > 57811 pg/mL (0-125) H 09/25/23 13:26 Total Protein 7.2 g/dL (6.6-8.7) 09/25/23 13:26 Albumin 3.8 g/dL (3.5-5.2) 09/25/23 13:26 Globulin 3.4 g/dL (1.3-4.6) 09/25/23 13:26 Procalcitonin 0.90 ng/mL (0-0.5) H 09/25/23 13:26 Discharge Plan Discharge Patient Disposition: Admitted As Inpatient Admit Provider: Juancarlos Swanson Clinical Impression: End-stage renal disease on hemodialysis, H/O aortic aneurysm repair, Hypoxia Condition: Stable Coding Level of Care Code ED Financial Institution Branch Manager for Javier Bullock
[2023-09-25 13:35] LABS: Basophils # 0.1 10^3/uL (0.0-0.1); Basophils % 1.6 %; Eosinophils # 0.5 10^3/uL (0.0-0.8); Eosinophils % 5.2 %; Hematocrit 36.1 % (37-53); Lymphocytes # 1.5 10^3/uL (0.8-4.8); Lymphocytes % 17.4 %; Mean Corpuscular HGB Conc 30.7 g/dL (30-55); Mean Corpuscular Hemoglobin 28.9 pg (27-33); Mean Platelet Volume 9.6 fL (7.4-10.4); Monocytes # 0.5 10^3/uL (0.2-0.9); Monocytes % 5.7 %; Neutrophils # 6.15 10^3/uL (1.8-7.7); Neutrophils % 69.8 %; Nucleated Red Blood Cells % 0 %; Platelet Count 309 10^3/cmm (157-399); Red Blood Count 3.84 10^6/uL (3.85-5.65); Red Cell Distribution Width 16.2 % (12.1-15.1); White Blood Count 8.81 10^3/uL (3.29-11.43)
[2023-09-25 14:03] LABS: D Dimer 5.24 ug/mLFEU (0-0.59)
--- NOTE | 2023-09-25 14:12 | CTR_ITS ---
PROCEDURE INFORMATION: Exam: CTA Chest With Contrast Exam date and time: 09/25/2023 4:06 PM Age: 58 years old Clinical indication: Abnormal findings; Abnormal diagnostic tests; Elevated d-dimer; Prior surgery; Surgery date: 3-7 days post-operative; Surgery type: Dialysis port; Additional info: Hypoxia; Elevated ddimer TECHNIQUE: Imaging protocol: Computed tomographic angiography of the chest with contrast. Exam focused on the arteries. 3D rendering (Not supervised by radiologist): MIP and/or 3D reconstructed images were created by the technologist. Radiation optimization: All CT scans at this facility use at least one of these dose optimization techniques: automated exposure control; mA and/or kV adjustment per patient size (includes targeted exams where dose is matched to clinical indication); or iterative reconstruction. Contrast material: OMNI 350; Contrast volume: 80 ml; Contrast route: INTRAVENOUS (IV); COMPARISON: CT angio chest PE protcl [id number] 07/17/2023 9:34 AM RADIATION DOSE METRICS: Total DLP (mGy-cm): 418.5 FINDINGS: Tubes, catheters and devices: There is a right internal jugular central venous catheter appropriately positioned with the tip in the lower SVC near the cavoatrial junction. Pulmonary arteries: The pulmonary arteries are adequately opacified for evaluation to the subsegmental level. There is no filling defect to suggest embolism. Aorta: Moderate calcific plaque in the thoracic aorta. Partially imaged stent graft in the upper abdominal aorta. Lungs: There is debris in the distal trachea and proximal right mainstem bronchus. There is diffuse central bronchial wall thickening. There is near complete compressive atelectasis of right lower lobe sparing the superior segment. There is basal segmental atelectasis in the left lower lobe. There is diffuse bilateral interlobular septal and fissural thickening. Pleural spaces: No pneumothorax. Moderate right and small left simple dependent pleural effusions. Heart: There is mild cardiac enlargement. There is no pericardial effusion. Coronary arteries: There is moderate coronary artery calcification. Lymph nodes: There is no mediastinal or hilar lymphadenopathy. Diaphragm: There is a small sliding-type hiatal hernia. Stomach and bowel: There is a large left lateral diaphragmatic hernia with a large volume of fat and a short segment of transverse colon herniated into the left lower thorax, stable compared to 07/17/2023. Bones/joints: Bones are unremarkable. Soft tissues: There is a tunneled catheter entering left chest wall and extending distally over the upper abdomen. There is trace fluid and edema associated with the catheter in the left chest wall. CT/CT angio chest PE protcl [id number] IMPRESSION: 1. No pulmonary embolism. 2. Pulmonary interstitial edema and bilateral pleural effusions are progressive since 07/17/2023. 3. Incidental findings above.
[2023-09-25 14:13] LABS: Alanine Aminotransferase 9 U/L (0-41); Albumin Level 3.8 g/dL (3.5-5.2); Alkaline Phosphatase 96 U/L (40-130); Anion Gap 20.3 (5-19); Aspartate Amino Transferase 11 U/L (0-40); Blood Urea Nitrogen 46 mg/dL (6-20); Calcium 9.4 mg/dL (8.5-10.5); Carbon Dioxide 25 mmol/L (22-29); Chloride 97 mmol/L (98-107); Creatinine Clr Calc Pharmacy 9.7745; Globulin 3.4 g/dL (1.3-4.6); Glomerular Filtration Rate 6.1 mL/min (90-130); Glucose 109 mg/dL (65-115); Osmolality Calculated 298 mOsm/kg (285-295); Potassium 4.3 mmol/L (3.5-5.1); Sodium 138 mmol/L (136-145); Total Bilirubin 0.3 mg/dL (0.15-1.2); Total Protein 7.2 g/dL (6.6-8.7)
[2023-09-25 14:17] LABS: ABG PCO2 35.8 mmHg (35-45); Alveolar-Arterial Oxygen Gradi 20.4 mmHg (5-10); Base Excess ABG 4.6 mmol/L (-2.0-2.0); Blood Gas Allen Test Pos; Blood Gas Operator Identificat CAK; Blood Gas Sample Site Radial, left; Blood Gas Sample Type Arterial; HCO3 ABG 27.9 mmol/L (22-26); HGB O2 Sat 87.4 % (95-100); Ionized Calcium Level - ABG 1.2 mmol/L (1.1-1.4); Methemoglobin 0.1 % (0.4-1.5); Oxygen Device NC; Oxygen Saturation ABG 89.3; PO2 ABG 54.1 mmHg (80.0-100.0); PO2 FiO2 Ratio Arterial Blood 0; Total Hemoglobin 10.4 g/dL (14-18)
[2023-09-25 14:42] LABS: NT Pro B Type Natriuretic Pept > 35000 pg/mL (0-125)
--- NOTE | 2023-09-25 15:05 | ECG_ITS ---
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 Measurements Intervals [place] Rate: 75 P: 37 LA: 209 QRS: 60 QRSD: 104 T: -90 QT: 414 QTc: 465 Interpretive Statements SINUS RHYTHM POSSIBLE LEFT ATRIAL ENLARGEMENT [-0.1mV P-WAVE IN V1/V2] NONSPECIFIC T-WAVE ABNORMALITY Compared to ECG 07/17/2023 13:32:38 T-wave abnormality now present Electronically Signed On 09-25-2023 22:54:29 CDT by Rah Argueta M.D. [email or web address] Siliconthe [email or web address] hospitalJasper Design [email or web address]/OM/[id number]
[2023-09-25 15:34] LABS: Magnesium 2.3 mg/dL (1.7-2.3); Phosphorus 4.4 mg/dL (2.5-4.5)
--- NOTE | 2023-09-25 15:41 | XR_ITS ---
WS: [id number] XR abdomen 1V* [id number] REASON FOR EXAM: new PD catheter FINDINGS: Bowel gas pattern is unremarkable. No free air or retroperitoneal air. Abdominal aortic stent graft. Small bore catheter is coiled in the left pelvis. Catheter proceeds proximally to the level of the di aphragm and the proximal end is not visualized on this examination. XR/XR abdomen 1V* [id number] IMPRESSION: No acute abdominal abnormality. Abdominal aortic stent graft. Small bore catheter in the left abdomen and pelvis as above.
[2023-09-25] MEDS: FUROsemide 10 mg/mL SDV 10mL 60 MG IVP (15:47)
[2023-09-25 16:05] LABS: Adenovirus Not Detected (NOT DETECT); Chlamydia Pneumoniae Not Detected (NOT DETECT); Coronavirus 229E,HKU1,NL63,OC4 Not Detected (NOT DETECT); Human Metapneumovirus Not Detected (NOT DETECT); Human Rhinovirus/Enterovirus Not Detected (NOT DETECT); Influenza A Not Detected (NOT DETECT); Influenza A H1 Not Detected (NOT DETECT); Influenza A H1-2009 Not Detected (NOT DETECT); Influenza A H3 Not Detected (NOT DETECT); Influenza B Not Detected (NOT DETECT); Mycoplasma Pneumoniae Not Detected (NOT DETECT); Parainfluenza Virus Type 1 Not Detected (NOT DETECT); Parainfluenza Virus Type 2 Not Detected (NOT DETECT); Parainfluenza Virus Type 3 Not Detected (NOT DETECT); Parainfluenza Virus Type 4 Not Detected (NOT DETECT); Respiratory Syncytial Virus A Not Detected (NOT DETECT); Respiratory Syncytial Virus B Not Detected (NOT DETECT); SARS-COV-2 Not Detected (NOT DETECT)
[2023-09-25] MEDS: iohexol 350 mg/mL 500 mL Btl (per mL) IV (16:16)
--- NOTE | 2023-09-25 16:47 | PC.NURSE ---
AT 1640 PT WAS TAKEN UP TO MED SURG 274 FOR DIALYSIS. PT WHEN TAKEN TO CT CAME BACK WITH O2 AT 83%. PT ASSISTED UPRIGHT IN BED, SITTING UP 90DEGREE AND PLACED ON NON-REBREATHER AND UP TO 10L VIA NON REBREATHER. PROVIDER CHRISTIANNE AWARE AND IN ROOM. PT TAKING DEEP BREATHS IN NOSE OUT MOUTH, O2 SAT THEN UP 92%. PT MONITORED O2 SAT WHILE TAKEN UP TO MED SURG ROOM.
--- NOTE | 2023-09-25 17:00 | PC.HD ---
Patient arrived via stretcher from ED. Awaiting bed on Med/Surg. 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 O2 sats on 10% face mask oxygen currently 90-93%.
--- NOTE | 2023-09-25 17:10 | P.HP_ITS ---
Providers/Chief Complaint 2 Admitting Physician: Juancarlos Swanson MD Primary Care Provider: Florentino Barrera MD Chief Complaint: port opened up on chest, post-op History of Present Illness Celestine Farrell is a 58 year old male with recent history of AAA repair at [facility] complicated by renal insufficiency requiring hemodialysis being transitioned over to peritoneal dialysis. He gets hemodialysis currently Monday. As per patient he was recently in [facility] where peritoneal dialysis catheter was placed. Today while going to the dialysis center for hemodialysis he noticed some blood around the peritoneal dialysis catheter site so he presented to the ER. In the ER he was found to be hypoxic down to low 80s requiring up to 4 L of oxygen supplementation hence hospital service was consulted for admission. As per patient he usually have difficulty in breathing between the 2 dialysis which usually gets worse on ambulation and when laying down flat. As per him he is never required oxygen. Denies any nausea, vomiting, headache, chest pain, cough, fever, sick contacts. In the ER while getting CT of the chest and waiting for dialysis his hypoxia got worsened and he ended up on 10 L of oxygen supplementation. Patient seen during dialysis session without any acute distress complaining of mild shortness of breath on 10 L oxime mask saturating 90%. As per him he regularly checks his blood pressure at home and his numbers are mostly in 190 systolics. Review of Systems 2 General: Reports: 10 or more systems reviewed and unremarkable except in HPI and below Const: Denies: fever(s), chills, body aches, change in appetite, change in weight, malaise, night sweats, diaphoresis, change in sleep pattern, daytime sleepiness or snoring Eyes: Denies: change in vision, blurry vision, photophobia, eye discomfort or eye discharge ENMT: Denies: throat pain, enlarged tonsils, hoarseness, mouth pain, oral sores, dry mouth, tinnitus, nasal congestion or post nasal drip Card: Denies: chest pain, palpitations, irregular heart rhythm, edema, swelling of feet/ankles, lightheadedness, syncope, pre-syncope, dyspnea on exertion, orthopnea, leg pain with exertion or acrocyanosis Resp: Denies: dyspnea, productive cough, non-productive cough, wheezing, stridor, pain on inspiration, change in phlegm color, hemoptysis or chest congestion GI: Denies: abdominal pain, nausea, vomiting, hematemesis, coffee ground emesis, dysphagia, heartburn, diarrhea, constipation, bloating, GI cramping, change in bowel habits, pain on defecation, hematochezia or melena : Denies: flank pain, difficulty urinating, dysuria, urinary frequency, urinary urgency, urinary hesitancy, urinary dribbling, difficulty starting urination, change in urine stream, nocturia or hematuria Musc: Denies: neck pain, back pain, extremity pain, joint pain, joint swelling, joint redness, joint stiffness or limited range of motion Neuro: Denies: headache(s), numbness in extremities, weakness in extremities, sensory changes, lack of coordination, difficulty walking, frequent falls, dizziness, vertigo, confusion, Slurred speech present, difficulty communicating thoughts or seizure-like activity Psych: Denies: anxiety, depression, mood swings, panic attacks, hopelessness or irritability Endo: Denies: polyuria, polydipsia, tired all the time, cold intolerance, excessive sweating, flushing or heat intolerance Marco A/Lymph: Denies: easy bruising or easy bleeding All/Imm: Denies: tongue swelling, facial swelling or acute wheezing Medications/Allergies Home Medications Medication Instructions Recorded Confirmed Last Taken Type amlodipine 10 mg tablet 10 mg PO [facility] 07/17/23 09/25/23 09/25/23 History aspirin 81 mg tablet,delayed 81 mg PO BEDTIME 07/17/23 09/25/23 09/24/23 History release clopidogrel 75 mg tablet 75 mg PO QA 07/17/23 09/25/23 09/25/23 History levothyroxine 50 mcg tablet 50 mcg PO QA 07/17/23 09/25/23 09/25/23 History metoprolol tartrate 100 mg tablet 100 mg PO BID 07/17/23 09/25/23 09/25/23 History atorvastatin 40 mg tablet 40 mg PO BEDTIME 09/25/23 09/25/23 09/24/23 History bumetanide 0.5 mg tablet 0.5 mg PO DAILY on non dialysis 09/25/23 09/25/23 09/24/23 History days losartan 100 mg tablet 100 mg PO QAM 09/25/23 09/25/23 09/25/23 History ondansetron HCl 4 mg tablet 4 mg PO Q8H PRN Nausea And Vomiting 09/25/23 09/25/23 Unknown History sevelamer carbonate 800 mg tablet 800 mg PO TID 09/25/23 09/25/23 09/25/23 History trazodone 50 mg tablet 50 mg PO BEDTIME PRN Sleep 09/25/23 09/25/23 Unknown History vit B,C-folic ac 800 mcg-zinc 12.5 1 tab PO QPM on non dialysis days 09/25/23 09/25/23 Unknown History mg-selen-D3 2,000 unit-vit E tablet (RenaPlex-D) Allergies Allergy/AdvReac Type Severity Reaction Status Date / Time adhesive Allergy ALGY-Rash Verified 09/25/23 12:49 Penicillins Allergy Unknown Verified 09/25/23 12:49 PFSH Acute 2 PFSH: Medical History Hypothyroidism Hypertension Surgical History H/O aortic aneurysm repair Social History Smoking and tobacco/nicotine status: former use of tobacco/nicotine Alcohol intake: never Vitals/I&O/Wt Last Vital Signs Temp 98.2 F 09/25/23 11:48 Pulse 77 09/25/23 15:30 Resp 20 H 09/25/23 12:30 BP 164/91 09/25/23 15:00 Pulse Ox 92 09/25/23 16:30 O2 Del Method Nasal Cannula 09/25/23 16:30 O2 Flow Rate 10 09/25/23 16:30 Weight last 48 hrs Weight 90.718 kg Physical Exam 2 Narrative: General: No acute distress, AO x3 on oxygen mask, hemodialysis catheter present in right hemithorax, paralysis catheter present in left hemithorax with localized hematoma around the catheter site without any active drainage HEENT: PERRLA, pupils bilaterally equal and reactive Chest: Normal vesicular breath sounds, bilateral fine crackles up to mid chest, equal good air entry bilaterally CVS: S1-S2 regular, no murmurs, no tachycardia, no gallops, no rubs Abdomen: Soft, nontender, no organomegaly, bowel sounds present Neuro: No focal deficits, no facial deformity, AO x3, power 5/5 in all limbs Data 09/26/23 03:58 09/26/23 03:58 Other Labs: Radiology Impressions Chest X-Ray 09/25/23 12:53 IMPRESSION: 1. Dependent opacity in the lower lungs bilaterally, greater on right. Findings likely represent some combination of atelectasis and pulmonary edema. Infection cannot be excluded. Findings are mildly progressive since 07/17/2023. 2. Small bilateral pleural effusions are present. Chest CTA 09/25/23 14:12 IMPRESSION: 1. No pulmonary embolism. 2. Pulmonary interstitial edema and bilateral pleural effusions are progressive since 07/17/2023. 3. Incidental findings above. Abdomen X-Ray 09/25/23 15:41 IMPRESSION: No acute abdominal abnormality. Abdominal aortic stent graft. Small bore catheter in the left abdomen and pelvis as above. Laboratory Results WBC 8.81 10^3/uL (3.29-11.43) 09/25/23 13:26 RBC 3.84 10^6/uL (3.85-5.65) L 09/25/23 13:26 Hgb 11.10 g/dL (11.27-16.99) L 09/25/23 13:26 Hct 36.1 % (37-53) L 09/25/23 13:26 MCV 94.0 fl (82-101) 09/25/23 13:26 MCH 28.9 pg (27-33) 09/25/23 13:26 MCHC 30.7 g/dL (30-55) 09/25/23 13:26 RDW 16.2 % (12.1-15.1) H 09/25/23 13:26 Plt Count 309 10^3/cmm (157-399) 09/25/23 13:26 MPV 9.6 fL (7.4-10.4) 09/25/23 13:26 Neut % (Auto) 69.8 % 09/25/23 13:26 Lymph % (Auto) 17.4 % 09/25/23 13:26 Riley % (Auto) 5.7 % 09/25/23 13:26 Eos % (Auto) 5.2 % 09/25/23 13:26 Baso % (Auto) 1.6 % 09/25/23 13:26 Neut # (Auto) 6.15 10^3/uL (1.8-7.7) 09/25/23 13: Lymph # (Auto) 1.5 10^3/uL (0.8-4.8) 09/25/23 13:26 Riley # (Auto) 0.5 10^3/uL (0.2-0.9) 09/25/23 13: Eos # (Auto) 0.5 10^3/uL (0.0-0.8) 09/25/23 13: Baso # (Auto) 0.1 10^3/uL (0.0-0.1) 09/25/23 13: Nucleated RBC % (auto) 0 % 09/25/23 13: Nucleated RBCs # 0.0 /100WBC 09/25/23 13: D-Dimer 5.24 ug/mLFEU (0-0.59) H 09/25/23 13:26 Specimen Type Arterial 09/25/23 14:05 Sample Site Radial, left 09/25/23 14:05 ABG pH 7.50 (7.35-7.45) H 09/25/23 14:05 ABG pCO2 35.8 mmHg (35-45) 09/25/23 14:05 ABG pO2 54.1 mmHg (80.0-100.0) L 09/25/23 14:05 ABG PO2/FiO2 Ratio 0 09/25/23 14:05 ABG HCO3 27.9 mmol/L (22-26) H 09/25/23 14:05 ABG O2 Saturation 89.3 09/25/23 14:05 ABG Base Excess 4.6 mmol/L (-2.0-2.0) H 09/25/23 14:05 Stephon Test Pos 09/25/23 14:05 A-a O2 Gradient 20.4 mmHg (5-10) H 09/25/23 14:05 Hematocrit 32.0 % (42-52) L 09/25/23 14:05 Hgb O2 Saturation 87.4 % (95-100) L 09/25/23 14:05 Carboxyhemoglobin 2.0 %THgb (0.4-20.1) 09/25/23 14:05 Methemoglobin 0.1 % (0.4-1.5) L 09/25/23 14:05 Total Hemoglobin 10.4 g/dL (14-18) L 09/25/23 14:05 Sodium 140.0 mmol/L (131-143) 09/25/23 14:05 Potassium 4.0 mmol/L (3.5-5.0) 09/25/23 14:05 Glucose 106.0 mg/dL (70-115) 09/25/23 14:05 Ionized Calcium 1.2 mmol/L (1.1-1.4) 09/25/23 14:05 O2 Delivery Device Nc 09/25/23 14:05 O2 Liters/Min 4.0 % 09/25/23 14:05 FiO2 36.0 % 09/25/23 14:05 Lunchroom Monitor ID Cak 09/25/23 14:05 Sodium 138 mmol/L (136-145) 09/25/23 13:26 Potassium 4.3 mmol/L (3.5-5.1) 09/25/23 13:26 Chloride 97 mmol/L (98-107) L 09/25/23 13:26 Carbon Dioxide 25 mmol/L (22-29) 09/25/23 13:26 Anion Gap 20.3 (5-19) H 09/25/23 13:26 BUN 46 mg/dL (6-20) H 09/25/23 13:26 Creatinine 8.9 mg/dL (0.7-1.2) H* 09/25/23 13:26 GFR Calculation 6.1 mL/min (90-130) L 09/25/23 13:26 Glucose 109 mg/dL (65-115) 09/25/23 13:26 Calculated Osmolality 298 mOsm/kg (285-295) H 09/25/23 13:26 Calcium 9.4 mg/dL (8.5-10.5) 09/25/23 13:26 Phosphorus 4.4 mg/dL (2.5-4.5) 09/25/23 13:26 Magnesium 2.3 mg/dL (1.7-2.3) 09/25/23 13:26 Total Bilirubin 0.3 mg/dL (0.15-1.2) 09/25/23 13:26 AST 11 U/L (0-40) 09/25/23 13:26 ALT 9 U/L (0-41) 09/25/23 13:26 Alkaline Phosphatase 96 U/L (40-130) 09/25/23 13:26 NT-Pro-B Natriuret Pep > 41874 pg/mL (0-125) H 09/25/23 13:26 Total Protein 7.2 g/dL (6.6-8.7) 09/25/23 13:26 Albumin 3.8 g/dL (3.5-5.2) 09/25/23 13:26 Globulin 3.4 g/dL (1.3-4.6) 09/25/23 13:26 Procalcitonin 0.90 ng/mL (0-0.5) H 09/25/23 13:26 Adenovirus (PCR) Not detected (NOT DETECT) 09/25/23 13:52 C. pneumoniae DNA (PCR) Not detected (NOT DETECT) 09/25/23 13:52 Coronavirus 229E (PCR) Not detected (NOT DETECT) 09/25/23 13:52 Human Metapneumovir PCR Not detected (NOT DETECT) 09/25/23 13:52 Influenza A (H1) PCR Not detected (NOT DETECT) 09/25/23 13:52 Influ A (H1/09) PCR Not detected (NOT DETECT) 09/25/23 13:52 Influenza A (H3) PCR Not detected (NOT DETECT) 09/25/23 13:52 Influenza Type A (PCR) Not detected (NOT DETECT) 09/25/23 13:52 Influenza Type B (PCR) Not detected (NOT DETECT) 09/25/23 13:52 M. pneumoniae (PCR) Not detected (NOT DETECT) 09/25/23 13:52 Parainfluenza 1 (PCR) Not detected (NOT DETECT) 09/25/23 13:52 Parainfluenza 2 (PCR) Not detected (NOT DETECT) 09/25/23 13:52 Parainfluenza 3 (PCR) Not detected (NOT DETECT) 09/25/23 13:52 Parainfluenza 4 (PCR) Not detected (NOT DETECT) 09/25/23 13:52 RSV Type A (PCR) Not detected (NOT DETECT) 09/25/23 13:52 RSV Type B (PCR) Not detected (NOT DETECT) 09/25/23 13:52 Entero/Rhino (PCR) Not detected (NOT DETECT) 09/25/23 13:52 SARS-CoV-2 (PCR) Not detected (NOT DETECT) 09/25/23 13:52 A&P Assessment and plan (1) Hypoxia: Currently requiring 10 L of oxygen mask to maintain saturation around 90%. Hypoxic respiratory failure. Most likely in setting of diastolic congestive heart failure. Oxygen supplementation keeping saturation 90%. Respiratory viral panel negative. CTA negative for any consolidation or pulmonary embolism. Patient does not give any history COPD. Check sputum culture. Hold off on any antibiotics for now. (2) Congestive heart failure: Last echocardiogram in June 2023 showed normal EF with grade 1 diastolic dysfunction. Acute decompensation in setting of hypertension along with estrogen disease. Strict input charting, daily weights. (3) End-stage renal disease on hemodialysis: On hemodialysis. Being transitioned to peritoneal dialysis. Nephrology consulted from the ER. Plan for urgent dialysis. Continue other chronic medications. (4) H/O aortic aneurysm repair: Plan Hypertension: Goal blood pressure less than 140/90 mmHg. Continue with home antihypertensives of amlodipine 10 mg daily, losartan 100 mg daily, metoprolol 100 mg twice daily. Uptitrate as for goal blood pressures. Full code Renal dialysis diet Famotidine for PUD prophylaxis Heparin 5000 every 12 hourly for DVT prophylaxis Attestations 2 Medical Necessity Statement*: Admission for more than 2 midnights for management of hypoxic respiratory failure in setting of diastolic congestive heart failure, uncontrolled hypertension in a patient with end-stage renal disease on hemodialysis. Diagnoses Hypoxia R09.02 Congestive heart failure I50.9 End-stage renal disease on hemodialysis N18.6; Z99.2 H/O aortic aneurysm repair Z98.890; Z86.79
[2023-09-25 17:13] LABS: Hepatitis B Surface AB < 3.5 (11.5-1000); Hepatitis B Surface Antigen Non-Reactive (Nonreactive)
--- NOTE | 2023-09-25 17:16 | PC.NURSE ---
PT REPORT CALLED. HARDEEP NOTIFIED OF PT CURRENTLY BEING IN ER BED AND NEEDED TRANSFERRED INTO MED SURGE BED AND TO CALL SO WE CAN BRING ER BED BACK DOWN.
--- NOTE | 2023-09-25 21:00 | PC.NURSE ---
Bleed Patient's peritoneal dialysis catheter site on left chest noted to have a small to moderate amount of sanguinous drainage around insertion site. Patient states this bleeding is what prompted him to seek medical care initially. 5000 units of heparin due subq at 2025. Dr. Beltran notified of the bleed; order received to hold this dose of heparin.
[2023-09-25] MEDS: aspirin 81 mg EC Tablet PO (21:10)
[2023-09-25] MEDS: famotidine 20 mg Tablet PO (21:10)
[2023-09-25] MEDS: atorvastatin 40 mg Tablet PO (21:10)
[2023-09-25] MEDS: sevelamer 800 mg Tablet PO (21:10)
--- NOTE | 2023-09-25 22:15 | PC.NURSE ---
Blood Pressure Patient's blood pressure ranging from 154/179 systolic, 90-[address] Beltran notified; order placed by physician for 100 mg metoprolol PO once one. See MAR for details.
[2023-09-25] MEDS: metoprolol tartrate 50 mg Tablet 100 MG PO (22:18)
--- NOTE | 2023-09-25 22:26 | P.CONIM_ITS ---
Providers/Reason For Consult 2 Consulting Physician/Specialty*: kommana/nephrology Reason for Consult*: ESRD Attending Physician: Juancarlos Swanson MD Primary Care Provider: Florentino Barrera MD History of Present Illness History of Present Illness Celestine Farrell is a 58 year old male Patient is a 58-year-old male with past medical history of end-stage renal disease on dialysis, he is being transitioned to peritoneal dialysis and had PD catheter placed recently. He noted some drainage at the PD catheter site and he presented to the emergency department patient is due for his regular dialysis today. Noted to be hypoxic required 4 L of oxygen. Blood pressures were also elevated in the 190s systolic. Lab data significant for hemoglobin of 11, BUN 46 creatinine 8.9. Chest x-ray showed possible pulmonary edema. CT angiogram of the chest showed no evidence of pulmonary embolism but showed pulmonary interstitial edema with bilateral pleural effusions. Review of Systems 2 Narrative: negative Medications/Allergies Home Medications Medication Instructions Recorded Confirmed Last Taken Type amlodipine 10 mg tablet 10 mg PO QAM 07/17/23 09/25/23 09/25/23 History aspirin 81 mg tablet,delayed 81 mg PO BEDTIME 07/17/23 09/25/23 09/24/23 History release clopidogrel 75 mg tablet 75 mg PO QAM 07/17/23 09/25/23 09/25/23 History levothyroxine 50 mcg tablet 50 mcg PO QAM 07/17/23 09/25/23 09/25/23 History metoprolol tartrate 100 mg tablet 100 mg PO BID 07/17/23 09/25/23 09/25/23 History atorvastatin 40 mg tablet 40 mg PO BEDTIME 09/25/23 09/25/23 09/24/23 History bumetanide 0.5 mg tablet 0.5 mg PO DAILY on non dialysis 09/25/23 09/25/23 09/24/23 History days losartan 100 mg tablet 100 mg PO QAM 09/25/23 09/25/23 09/25/23 History ondansetron HCl 4 mg tablet 4 mg PO Q8H PRN Nausea And Vomiting 09/25/23 09/25/23 Unknown History sevelamer carbonate 800 mg tablet 800 mg PO TID 09/25/23 09/25/23 09/25/23 History trazodone 50 mg tablet 50 mg PO BEDTIME PRN Sleep 09/25/23 09/25/23 Unknown History vit B,C-folic ac 800 mcg-zinc 12.5 1 tab PO QPM on non dialysis days 09/25/23 09/25/23 Unknown History mg-selen-D3 2,000 unit-vit E tablet (RenaPlex-D) Allergies Allergy/AdvReac Type Severity Reaction Status Date / Time adhesive Allergy ALGY-Rash Verified 09/25/23 12:49 Penicillins Allergy Unknown Verified 09/25/23 12:49 Current Medications Generic Name Dose Route Start Last Admin Trade Name Freq PRN Reason Stop Dose Admin Aspirin 81 mg 09/25/23 21:00 09/25/23 21:10 Aspirin 81 Mg Ec Tablet PO 81 mg BEDTIME TEX Administration Atorvastatin Calcium 40 mg 09/25/23 21:00 09/25/23 21:10 Atorvastatin 40 Mg Tablet PO 40 mg BEDTIME TEX Administration Famotidine 20 mg 09/25/23 20:26 09/25/23 21:10 Famotidine 20 Mg Tablet PO 20 mg BID TEX Administration Heparin Sodium (Porcine) 5,000 unit 09/25/23 20:26 09/25/23 21:35 Heparin 5,000 Unit/Ml Inj 1 Ml SUBCUT Not Given Q12H TEX Sevelamer Carbonate 800 mg 09/25/23 21:00 09/25/23 21:10 Sevelamer 800 Mg Tablet PO 800 mg TID TEX Administration PFSH Acute 2 PFSH: Medical History Hypothyroidism Hypertension Surgical History H/O aortic aneurysm repair Social History Smoking and tobacco/nicotine status: former use of tobacco/nicotine Alcohol intake: never Vitals/I&O/Wt Last Vital Signs Temp 98.5 F 09/25/23 20:30 Pulse 73 09/25/23 21:30 Resp 23 H 09/25/23 21:30 BP 169/102 09/25/23 21:30 Pulse Ox 95 09/25/23 21:30 O2 Del Method Nasal Cannula 09/25/23 21:00 O2 Flow Rate 6 09/25/23 21:00 09/25/23 09/25/2324 06:59 14:59 22:59 Intake Total 300 / 300 Output Total 3300 / 3300 Balance -3000 / -3000 Weight last 48 hrs Weight 80.739 kg Weight 87.7 kg Weight 90.718 kg Physical Exam 2 Narrative: awake , alert , no distress S1S2 RRR per report Lungs clear per report noedema Data 09/26/23 03:58 09/26/23 03:58 A&P Assessment and plan (1) End-stage renal disease on hemodialysis: Plan 1. End-stage renal disease: On MWF schedule as outpatient, patient now presented with volume overload, hypoxic. plan HD today -ultrafiltration as tolerated 3. Anemia: NAJMA with HD 4. Acute on chronic respiratory failure, 5. History of hypertension, blood pressures elevated on presentation, resume home meds 6. History of recent abdominal aortic aneurysm repair Patient evaluated using audiovisual cart. Time spent 20 minutes. Consult Attestations 2 Medical Necessity Statement: per twin Coding Level of Care Code Acute Code for Chg Fwd Diagnoses End-stage renal disease on hemodialysis N18.6; Z99.2
[2023-09-25 23:46] LABS: Iron 35 ug/dL (59-158); Percent Saturation 16.5 % (20-50); Total Iron Binding Capacity 211 mcg/dl; Unsaturated Iron Binding 176 ug/dL (112-347); Vitamin B12 867 pg/mL (232-1245)
[2023-09-26] VITALS (42 sets, daily range): BP systolic 121–171; BP diastolic 81–102; PULSE 59–90; RESP 13–29; TEMP 36.8–37.1; O2SAT 86–96; BMI 27.0
[2023-09-26 04:58] LABS: Basophils # 0.1 10^3/uL (0.0-0.1); Basophils % 1.9 %; Eosinophils # 0.5 10^3/uL (0.0-0.8); Eosinophils % 6.7 %; Hematocrit 35.5 % (37-53); Lymphocytes # 1.5 10^3/uL (0.8-4.8); Lymphocytes % 21.8 %; Mean Corpuscular HGB Conc 31.3 g/dL (30-55); Mean Corpuscular Hemoglobin 29.1 pg (27-33); Mean Corpuscular Volume 92.9 fl (82-101); Mean Platelet Volume 9.4 fL (7.4-10.4); Monocytes # 0.4 10^3/uL (0.2-0.9); Monocytes % 5.8 %; Neutrophils # 4.46 10^3/uL (1.8-7.7); Neutrophils % 63.5 %; Nucleated Red Blood Cells % 0 %; Platelet Count 310 10^3/cmm (157-399); Red Blood Count 3.82 10^6/uL (3.85-5.65); Red Cell Distribution Width 15.9 % (12.1-15.1); White Blood Count 7.02 10^3/uL (3.29-11.43)
[2023-09-26 05:24] LABS: Chol HDL Ratio 2.69 mg/dL (1.0-5.00); Cholesterol 86 mg/dL (0-200); HDL Cholesterol 32 mg/dL (60-100); LDL Cholesterol Calculated 25 mg/dL (50-129); LDL HDL Ratio 0.78 RATIO (0.00-3.22); Triglycerides 146 mg/dL (0-150)
[2023-09-26 05:30] LABS: Estmated Average Glucose 88; Hemoglobin A1C 4.7 % (4.0-6.0)
[2023-09-26 05:31] LABS: Alanine Aminotransferase 8 U/L (0-41); Albumin Level 3.5 g/dL (3.5-5.2); Alkaline Phosphatase 95 U/L (40-130); Anion Gap 18.1 (5-19); Aspartate Amino Transferase 9 U/L (0-40); Blood Urea Nitrogen 27 mg/dL (6-20); Carbon Dioxide 25 mmol/L (22-29); Chloride 96 mmol/L (98-107); Creatinine Clr Calc Pharmacy 13.0956; Globulin 3.1 g/dL (1.3-4.6); Glomerular Filtration Rate 9.1 mL/min (90-130); Glucose 87 mg/dL (65-115); Magnesium 2.1 mg/dL (1.7-2.3); Osmolality Calculated 284 mOsm/kg (285-295); Phosphorus 4.3 mg/dL (2.5-4.5); Potassium 4.1 mmol/L (3.5-5.1); Sodium 135 mmol/L (136-145); Total Bilirubin 0.4 mg/dL (0.15-1.2); Total Protein 6.6 g/dL (6.6-8.7)
[2023-09-26] MEDS: losartan 50 mg Tablet 100 MG PO (05:33)
[2023-09-26] MEDS: clopidogrel 75 mg Tablet PO (05:33)
[2023-09-26] MEDS: amlodipine 10 mg Tablet PO (05:34)
[2023-09-26] MEDS: levothyroxine 50 mcg Tablet PO (05:34)
[2023-09-26 05:39] LABS: Folate Level 12.3 ng/mL (4.5-32.2)
[2023-09-26] MEDS: metoprolol tartrate 50 mg Tablet 100 MG PO ×2 (08:12→17:41)
[2023-09-26] MEDS: sevelamer 800 mg Tablet PO ×3 (08:12→20:14)
[2023-09-26] MEDS: famotidine 20 mg Tablet PO ×2 (08:12→17:41)
[2023-09-26] MEDS: heparin 5,000 unit/mL INJ 1 mL 5000 UNIT SUBCUT ×2 (08:14→20:14)
--- NOTE | 2023-09-26 09:10 | PC.NURSE ---
PD site. leaking and dried blood noted. Area cleansed and fresh dressing applied. Area cleansed with chlorahexadine. Drain sponge and bioclusive dressings applied. Pt tolerated very well. SIte bruised no bleeding or other drainage noted.
--- NOTE | 2023-09-26 09:17 | P.PN_ITS ---
Subjective 2 Subjective: doing better Medications: Reviewed: Yes Vitals/I&O/Wt Last Vital Signs Temp 98.3 F 09/26/23 05:30 Pulse 79 09/26/23 08:01 Resp 16 09/26/23 08:01 BP 164/86 09/26/23 07:15 Pulse Ox 95 09/26/23 08:01 O2 Del Method Nasal Cannula 09/26/23 08:01 O2 Flow Rate 4 09/26/23 08:01 09/25/23 09/26/23 09/26/23 22:59 06:59 14:59 Intake Total 300 / 300 Output Total 3300 / 3300 Balance -3000 / -3000 Weight last 48 hrs Weight 80.739 kg Weight 80.739 kg Weight 87.7 kg Weight 90.718 kg Physical Exam 2 Narrative: awake , alert , no distress S1S2 RRR per report Lungs clear per report noedema Data 09/26/23 03:58 09/26/23 03:58 A&P Assessment and plan (1) End-stage renal disease on hemodialysis: Plan 1. End-stage renal disease: On MWF schedule as outpatient, patient now presented with volume overload, hypoxic. s/p HD yesterday -ultrafiltration as tolerated, hd tomorrow has new PD catheter , with some drainage at the site , abd X ray reviewed Pt need to follow up with PD clinic after DC for catheter flushes 3. Anemia: NAJMA with HD 4. Acute on chronic respiratory failure, 5. History of hypertension, blood pressures elevated on presentation, resume home meds 6. History of recent abdominal aortic aneurysm repair Patient evaluated using audiovisual cart. Time spent 20 minutes. Attestations 2 Medical Necessity Statement*: per twin Coding Level of Care Code Acute Code for Chg Fwd Diagnoses End-stage renal disease on hemodialysis N18.6; Z99.2
[2023-09-26] MEDS: isosorbide mononitrate ER 60 mg Tablet PO (11:07)
--- NOTE | 2023-09-26 13:25 | PC.NURSE ---
Med srug called to give report. Report given to JENNYFER Rodriguez. No questions.
--- NOTE | 2023-09-26 13:40 | PC.NURSE ---
Pt transferred to room 278-2 via W/C. All belongings: cell phone, glasses, pants and shirt with patient.
--- NOTE | 2023-09-26 13:50 | PC.NURSE ---
Dr Zeng notified that pt's breathing better after Imdur admin. . He was on 2lpm/NC , his nose kept bleeding even with humidification. Took the O2 off and his nose stopped bleeding. He is O2 sats are 94/95% on room air. He still cannot lie flat without being short of breath.
--- NOTE | 2023-09-26 16:24 | P.PN_ITS ---
Subjective 2 Subjective: No acute vents overnight. Patient has remained hemodynamically stable and afebrile. Blood pressure is actually elevated. Down to 4 L ox supplementation after dialysis yesterday evening. Denies any new complaints. Medications: Reviewed: Yes Vitals/I&O/Wt Last Vital Signs Temp 98.2 F 09/26/23 15:54 Pulse 71 09/26/23 15:54 Resp 18 09/26/23 15:54 BP 134/86 09/26/23 15:54 Pulse Ox 90 09/26/23 15:54 O2 Del Method Room Air 09/26/23 15:54 O2 Flow Rate 4 09/26/23 12:30 09/26/23 09/26/23 09/26/23 06:59 14:59 22:59 Intake Total 600 / 600 Balance 600 / 600 Weight last 48 hrs Weight 80.739 kg Weight 80.739 kg Weight 87.7 kg Weight 90.718 kg Physical Exam 2 Narrative: General: No acute distress, AO x3 on oxygen mask, hemodialysis catheter present in right hemithorax, paralysis catheter present in left hemithorax with localized hematoma around the catheter site without any active drainage HEENT: PERRLA, pupils bilaterally equal and reactive Chest: Normal vesicular breath sounds, bilateral fine crackles up to mid chest, equal good air entry bilaterally CVS: S1-S2 regular, no murmurs, no tachycardia, no gallops, no rubs Abdomen: Soft, nontender, no organomegaly, bowel sounds present Neuro: No focal deficits, no facial deformity, AO x3, power 5/5 in all limbs Data 09/26/23 03:58 09/26/23 03:58 A&P Assessment and plan (1) Hypoxia: Currently requiring 10 L of oxygen mask to maintain saturation around 90%. Hypoxic respiratory failure. Most likely in setting of diastolic congestive heart failure. Oxygen supplementation keeping saturation 90%. Respiratory viral panel negative. CTA negative for any consolidation or pulmonary embolism. Patient does not give any history COPD. Check sputum culture. Hold off on any antibiotics for now. (2) Congestive heart failure: Last echocardiogram in June 2023 showed normal EF with grade 1 diastolic dysfunction. Acute decompensation in setting of hypertension along with estrogen disease. Strict input charting, daily weights. (3) End-stage renal disease on hemodialysis: On hemodialysis. Being transitioned to peritoneal dialysis. Nephrology consulted from the ER. Plan for urgent dialysis. Continue other chronic medications. (4) H/O aortic aneurysm repair: Plan Hypertension: Goal blood pressure less than 140/90 mmHg. Continue with home antihypertensives of amlodipine 10 mg daily, losartan 100 mg daily, metoprolol 100 mg twice daily. Uptitrate as for goal blood pressures. Full code Renal dialysis diet Famotidine for PUD prophylaxis Heparin 5000 every 12 hourly for DVT prophylaxis Plan for the day: Goal blood pressure still less than 140/90 mmHg. Still elevated. Continue with all home medications. Add Imdur 60 mg daily. Will uptitrate as for goal blood pressures. Oxygen supplementation keeping saturation over 90%. Repeat dialysis as per nephrology team. Transfer to [facility] floor. Discharge plan: Plan to discharge next 24 hours on adjusted antihypertensives after dialysis tomorrow. Will need home O2 evaluation depending on oxygen requirement in a.m. tomorrow. Attestations 2 Medical Necessity Statement*: Requires further hospitalization for management of facetal hypertension leading to congestive heart failure in a patient with baseline incisional disease on hemodialysis. Diagnoses Hypoxia R09.02 Congestive heart failure I50.9 End-stage renal disease on hemodialysis N18.6; Z99.2 H/O aortic aneurysm repair Z98.890; Z86.79
[2023-09-26] MEDS: aspirin 81 mg EC Tablet PO (20:14)
[2023-09-26] MEDS: atorvastatin 40 mg Tablet PO (20:14)
[2023-09-27] VITALS (7 sets, daily range): BP systolic 133–156; BP diastolic 65–80; PULSE 63–81; RESP 16–18; TEMP 36.5–36.7; O2SAT 91–95
[2023-09-27 06:06] LABS: Basophils # 0.1 10^3/uL (0.0-0.1); Basophils % 1.5 %; Eosinophils # 0.4 10^3/uL (0.0-0.8); Eosinophils % 4.5 %; Hematocrit 31.9 % (37-53); Lymphocytes % 23.9 %; Mean Corpuscular Hemoglobin 29.1 pg (27-33); Mean Corpuscular Volume 91.1 fl (82-101); Mean Platelet Volume 9.3 fL (7.4-10.4); Monocytes # 0.7 10^3/uL (0.2-0.9); Neutrophils % 61.7 %; Nucleated Red Blood Cells % 0 %; Platelet Count 294 10^3/cmm (157-399); Red Cell Distribution Width 15.7 % (12.1-15.1); White Blood Count 8.42 10^3/uL (3.29-11.43)
[2023-09-27] MEDS: clopidogrel 75 mg Tablet PO (06:07)
[2023-09-27] MEDS: levothyroxine 50 mcg Tablet PO (06:07)
[2023-09-27] MEDS: amlodipine 10 mg Tablet PO (06:07)
[2023-09-27] MEDS: losartan 50 mg Tablet 100 MG PO (06:07)
[2023-09-27 06:31] LABS: Alanine Aminotransferase 7 U/L (0-41); Albumin Level 3.7 g/dL (3.5-5.2); Alkaline Phosphatase 92 U/L (40-130); Anion Gap 19.5 (5-19); Aspartate Amino Transferase 9 U/L (0-40); Blood Urea Nitrogen 44 mg/dL (6-20); Calcium 9.4 mg/dL (8.5-10.5); Carbon Dioxide 25 mmol/L (22-29); Chloride 99 mmol/L (98-107); Creatinine Clr Calc Pharmacy 9.5062; Globulin 3.1 g/dL (1.3-4.6); Glomerular Filtration Rate 6.7 mL/min (90-130); Glucose 91 mg/dL (65-115); Osmolality Calculated 299 mOsm/kg (285-295); Potassium 4.5 mmol/L (3.5-5.1); Sodium 139 mmol/L (136-145); Total Bilirubin 0.3 mg/dL (0.15-1.2); Total Protein 6.8 g/dL (6.6-8.7)
[2023-09-27] MEDS: famotidine 20 mg Tablet PO (08:34)
[2023-09-27] MEDS: isosorbide mononitrate ER 60 mg Tablet PO (08:34)
[2023-09-27] MEDS: sevelamer 800 mg Tablet PO (08:34)
[2023-09-27] MEDS: metoprolol tartrate 50 mg Tablet 100 MG PO (08:34)
[2023-09-27] MEDS: heparin 5,000 unit/mL INJ 1 mL 5000 UNIT SUBCUT (08:36)
--- NOTE | 2023-09-27 09:36 | P.PN_ITS ---
Subjective 2 Subjective: doing well Medications: Reviewed: Yes Vitals/I&O/Wt Last Vital Signs Temp 97.8 F 09/27/23 07:40 Pulse 72 09/27/23 07:56 Resp 16 09/27/23 07:56 BP 133/65 09/27/23 07:40 Pulse Ox 95 09/27/23 07:56 O2 Del Method Room Air 09/27/23 07:56 O2 Flow Rate 4 09/26/23 12:30 09/26/23 09/27/23 09/27/23 22:59 06:59 14:59 Intake Total 480 / 1080 480 / 480 Balance 480 / 1080 480 / 480 Weight last 48 hrs Weight 70.624 kg Weight 70.505 kg Weight 80.739 kg Weight 80.739 kg Weight 87.7 kg Weight 90.718 kg Physical Exam 2 Narrative: awake , alert , no distress S1S2 RRR per report Lungs clear per report noedema Data 09/27/23 05:41 09/27/23 05:41 A&P Assessment and plan (1) End-stage renal disease on hemodialysis: Plan 1. End-stage renal disease: On MWF schedule as outpatient, patient now presented with volume overload, hypoxic. , hd today has new PD catheter , with some drainage at the site , abd X ray reviewed Pt need to follow up with PD clinic after DC for catheter flushes 3. Anemia: NAJMA with HD 4. Acute on chronic respiratory failure, 5. History of hypertension, blood pressures elevated on presentation, resume home meds 6. History of recent abdominal aortic aneurysm repair Patient evaluated using audiovisual cart. Time spent 20 minutes. Attestations 2 Medical Necessity Statement*: per twin Coding Level of Care Code Acute Code for Chg Fwd Diagnoses End-stage renal disease on hemodialysis N18.6; Z99.2
--- NOTE | 2023-09-27 12:09 | P.DS_ITS ---
Discharge Providers Date of Admission: 09/25/23 16:53 Date of Discharge: September 27, 2023 Attending Provider at Admission: Juancarlos Swanson MD Attending Provider at Discharge: Juancarlos Swanson MD Consults: Telenephrology Primary Care Provider: Florentino Barrera MD Diagnoses at Discharge Discharge Diagnosis (1) End-stage renal disease on hemodialysis: Status: Acute Reason for Visit Reason for Visit: port opened up on chest, post-op Hospital Course Hospital Course Celestine Farrell is a 58 year old male with recent history of AAA repair at [facility] complicated by renal insufficiency requiring hemodialysis being transitioned over to peritoneal dialysis. He gets hemodialysis currently Monday. As per patient he was recently in [facility] where peritoneal dialysis catheter was placed. Today while going to the dialysis center for hemodialysis he noticed some blood around the peritoneal dialysis catheter site so he presented to the ER. In the ER he was found to be hypoxic down to low 80s requiring up to 4 L of oxygen supplementation hence hospital service was consulted for admission. As per patient he usually have difficulty in breathing between the 2 dialysis which usually gets worse on ambulation and when laying down flat. As per him he is never required oxygen. Denies any nausea, vomiting, headache, chest pain, cough, fever, sick contacts. In the ER while getting CT of the chest and waiting for dialysis his hypoxia got worsened and he ended up on 10 L of oxygen supplementation. Patient seen during dialysis session without any acute distress complaining of mild shortness of breath on 10 L oxime mask saturating 90%. As per him he regularly checks his blood pressure at home and his numbers are mostly in 190 systolics. Patient was admitted to the hospital for evaluation management of hypoxic respiratory failure in setting of congestive heart failure due to hypertensive urgency. He underwent emergency dialysis. During hospitalization his antihypertensives were adjusted. After adjustment of antihypertensives and dialysis session his oxygen requirements steadily improved. Currently he is down to room air. Last session of dialysis on 09/26. He has been discharged in hemodynamically stable condition on all his home medications along with and added Imdur 60 mg daily. He is to continue his dialysis sessions as before. Physical Exam Narrative: General: No acute distress, AO x3, hemodialysis dialysis catheter present in right hemithorax, paralysis catheter present in left hemithorax with localized hematoma around the catheter site without any active drainage HEENT: PERRLA, pupils bilaterally equal and reactive Chest: Normal vesicular breath sounds, bilateral fine crackles up to mid chest, equal good air entry bilaterally CVS: S1-S2 regular, no murmurs, no tachycardia, no gallops, no rubs Abdomen: Soft, nontender, no organomegaly, bowel sounds present Neuro: No focal deficits, no facial deformity, AO x3, power 5/5 in all limbs Discharge Data Studies Completed and Pending Completed Studies During Hospitalization Category Date Time Status CTA chest [CT angio chest PE protcl [id number]] Stat Cat Scan 09/25/23 14:12 Completed XR abdomen 1V* [id number] Stat Exams 09/25/23 15:41 Completed XR chest 1V portable [id number] Stat Exams 09/25/23 12:53 Completed Pending at discharge Category Date Time Status Sputum Culture and Gram Stain Stat Lab 09/26/23 09:43 Uncollected Urinalysis Routine Lab 09/25/23 20:26 Uncollected Radiology Impressions Chest X-Ray 09/25/23 12:53 IMPRESSION: 1. Dependent opacity in the lower lungs bilaterally, greater on right. Findings likely represent some combination of atelectasis and pulmonary edema. Infection cannot be excluded. Findings are mildly progressive since 07/17/2023. 2. Small bilateral pleural effusions are present. Chest CTA 09/25/23 14:12 IMPRESSION: 1. No pulmonary embolism. 2. Pulmonary interstitial edema and bilateral pleural effusions are progressive since 07/17/2023. 3. Incidental findings above. Abdomen X-Ray 09/25/23 15:41 IMPRESSION: No acute abdominal abnormality. Abdominal aortic stent graft. Small bore catheter in the left abdomen and pelvis as above. Laboratory Results WBC 8.42 10^3/uL (3.29-11.43) 09/27/23 05:41 RBC 3.50 10^6/uL (3.85-5.65) L 09/27/23 05:41 Hgb 10.20 g/dL (11.27-16.99) L 09/27/23 05:41 Hct 31.9 % (37-53) L 09/27/23 05:41 MCV 91.1 fl (82-101) 09/27/23 05:41 MCH 29.1 pg (27-33) 09/27/23 05:41 MCHC 32.0 g/dL (30-55) 09/27/23 05:41 RDW 15.7 % (12.1-15.1) H 09/27/23 05:41 Plt Count 294 10^3/cmm (157-399) 09/27/23 05:41 MPV 9.3 fL (7.4-10.4) 09/27/23 05:41 Neut % (Auto) 61.7 % 09/27/23 05:41 Lymph % (Auto) 23.9 % 09/27/23 05:41 [place] % (Auto) 8.0 % 09/27/23 05:41 Eos % (Auto) 4.5 % 09/27/23 05:41 Baso % (Auto) 1.5 % 09/27/23 05:41 Neut # (Auto) 5.20 10^3/uL (1.8-7.7) 09/27/23 05:41 Lymph # (Auto) 2.0 10^3/uL (0.8-4.8) 09/27/23 05:41 [place] # (Auto) 0.7 10^3/uL (0.2-0.9) 09/27/23 05:41 Eos # (Auto) 0.4 10^3/uL (0.0-0.8) 09/27/23 05:41 Baso # (Auto) 0.1 10^3/uL (0.0-0.1) 09/27/23 05:41 Nucleated RBC % (auto) 0 % 09/27/23 05:41 Nucleated RBCs # 0.0 /100WBC 09/27/23 05:41 D-Dimer 5.24 ug/mLFEU (0-0.59) H 09/25/23 13:26 Specimen Type Arterial 09/25/23 14:05 Sample Site Radial, left 09/25/23 14:05 ABG pH 7.50 (7.35-7.45) H 09/25/23 14:05 ABG pCO2 35.8 mmHg (35-45) 09/25/23 14:05 ABG pO2 54.1 mmHg (80.0-100.0) L 09/25/23 14:05 ABG PO2/FiO2 Ratio 0 09/25/23 14:05 ABG HCO3 27.9 mmol/L (22-26) H 09/25/23 14:05 ABG O2 Saturation 89.3 09/25/23 14:05 ABG Base Excess 4.6 mmol/L (-2.0-2.0) H 09/25/23 14:05 Stephon Test Pos 09/25/23 14:05 A-a O2 Gradient 20.4 mmHg (5-10) H 09/25/23 14:05 Hematocrit 32.0 % (42-52) L 09/25/23 14:05 Hgb O2 Saturation 87.4 % (95-100) L 09/25/23 14:05 Carboxyhemoglobin 2.0 %THgb (0.4-20.1) 09/25/23 14:05 Methemoglobin 0.1 % (0.4-1.5) L 09/25/23 14:05 Total Hemoglobin 10.4 g/dL (14-18) L 09/25/23 14:05 Sodium 140.0 mmol/L (131-143) 09/25/23 14:05 Potassium 4.0 mmol/L (3.5-5.0) 09/25/23 14:05 Glucose 106.0 mg/dL (70-115) 09/25/23 14:05 Ionized Calcium 1.2 mmol/L (1.1-1.4) 09/25/23 14:05 O2 Delivery Device Nc 09/25/23 14:05 O2 Liters/Min 4.0 % 09/25/23 14:05 FiO2 36.0 % 09/25/23 14:05 [employer] ID Cak 09/25/23 14:05 Sodium 139 mmol/L (136-145) 09/27/23 05:41 Potassium 4.5 mmol/L (3.5-5.1) 09/27/23 05:41 Chloride 99 mmol/L (98-107) 09/27/23 05:41 Carbon Dioxide 25 mmol/L (22-29) 09/27/23 05:41 Anion Gap 19.5 (5-19) H 09/27/23 05:41 BUN 44 mg/dL (6-20) H 09/27/23 05:41 Creatinine 8.2 mg/dL (0.7-1.2) H* 09/27/23 05:41 GFR Calculation 6.7 mL/min (90-130) L 09/27/23 05:41 Glucose 91 mg/dL (65-115) 09/27/23 05:41 Estimat Average Glucose 88 09/26/23 03:58 Hemoglobin A1c 4.7 % (4.0-6.0) 09/26/23 03:58 Calculated Osmolality 299 mOsm/kg (285-295) H 09/27/23 05:41 Calcium 9.4 mg/dL (8.5-10.5) 09/27/23 05:41 Phosphorus 4.3 mg/dL (2.5-4.5) 09/26/23 03:58 Magnesium 2.1 mg/dL (1.7-2.3) 09/26/23 03:58 Iron 35 ug/dL (59-158) L 09/25/23 13:26 TIBC 211 mcg/dl 09/25/23 13:26 % Saturation 16.5 % (20-50) L 09/25/23 13:26 Unsat Iron Binding 176 ug/dL (112-347) 09/25/23 13:26 Total Bilirubin 0.3 mg/dL (0.15-1.2) 09/27/23 05:41 AST 9 U/L (0-40) 09/27/23 05:41 ALT 7 U/L (0-41) 09/27/23 05:41 Alkaline Phosphatase 92 U/L (40-130) 09/27/23 05:41 NT-Pro-B Natriuret Pep > 98549 pg/mL (0-125) H 09/25/23 13:26 Total Protein 6.8 g/dL (6.6-8.7) 09/27/23 05:41 Albumin 3.7 g/dL (3.5-5.2) 09/27/23 05:41 Globulin 3.1 g/dL (1.3-4.6) 09/27/23 05:41 Triglycerides 146 mg/dL (0-150) 09/26/23 03:58 Cholesterol 86 mg/dL (0-200) 09/26/23 03:58 LDL Cholesterol, Calc 25 mg/dL (50-129) L 09/26/23 03:58 HDL Cholesterol 32 mg/dL (60-100) L 09/26/23 03:58 LDL/HDL Ratio 0.78 RATIO (0.00-3.22) 09/26/23 03:58 Cholesterol/HDL Ratio 2.69 mg/dL (1.0-5.00) 09/26/23 03:58 Vitamin B12 867 pg/mL (232-1245) 09/25/23 13:26 Folate 12.3 ng/mL (4.5-32.2) 09/26/23 03:58 Procalcitonin 0.90 ng/mL (0-0.5) H 09/25/23 13:26 TSH 3.00 uIU/mL (0.27-4.20) 09/25/23 13:26 Adenovirus (PCR) Not detected (NOT DETECT) 09/25/23 13:52 C. pneumoniae DNA (PCR) Not detected (NOT DETECT) 09/25/23 13:52 Coronavirus 229E (PCR) Not detected (NOT DETECT) 09/25/23 13:52 Hep Bs Antigen Non-reactive (Nonreactive) 09/25/23 16:21 Hep Bs Antibody < 3.5 (11.5-1000) L 09/25/23 16:21 Human Metapneumovir PCR Not detected (NOT DETECT) 09/25/23 13:52 Influenza A (H1) PCR Not detected (NOT DETECT) 09/25/23 13:52 Influ A (H1/09) PCR Not detected (NOT DETECT) 09/25/23 13:52 Influenza A (H3) PCR Not detected (NOT DETECT) 09/25/23 13:52 Influenza Type A (PCR) Not detected (NOT DETECT) 09/25/23 13:52 Influenza Type B (PCR) Not detected (NOT DETECT) 09/25/23 13:52 M. pneumoniae (PCR) Not detected (NOT DETECT) 09/25/23 13:52 Parainfluenza 1 (PCR) Not detected (NOT DETECT) 09/25/23 13:52 Parainfluenza 2 (PCR) Not detected (NOT DETECT) 09/25/23 13:52 Parainfluenza 3 (PCR) Not detected (NOT DETECT) 09/25/23 13:52 Parainfluenza 4 (PCR) Not detected (NOT DETECT) 09/25/23 13:52 RSV Type A (PCR) Not detected (NOT DETECT) 09/25/23 13:52 RSV Type B (PCR) Not detected (NOT DETECT) 09/25/23 13:52 Entero/Rhino (PCR) Not detected (NOT DETECT) 09/25/23 13:52 SARS-CoV-2 (PCR) Not detected (NOT DETECT) 09/25/23 13:52 Vitals Last Vital Signs Temp 97.8 F 09/27/23 07:40 Pulse 72 09/27/23 07:56 Resp 16 09/27/23 07:56 BP 133/65 09/27/23 07:40 Pulse Ox 95 09/27/23 07:56 O2 Del Method Room Air 09/27/23 07:56 O2 Flow Rate 4 09/26/23 12:30 Discharge Plan Discharge Patient Disposition: Home Condition: Stable Prescriptions: New isosorbide mononitrate 60 mg Tablet Extended Release 24 Hr 60 mg PO DAILY Qty: 30 0RF Continued metoprolol tartrate 100 mg tablet 100 mg PO BID clopidogrel 75 mg Tablet 75 mg PO QAM aspirin 81 mg Tablet,Delayed Release (Dr/Ec) 81 mg PO BEDTIME amlodipine 10 mg tablet 10 mg PO QAM levothyroxine 50 mcg tablet 50 mcg PO QAM atorvastatin 40 mg tablet 40 mg PO BEDTIME trazodone 50 mg tablet 50 mg PO BEDTIME PRN (Reason: Sleep) ondansetron HCl 4 mg tablet 4 mg PO Q8H PRN (Reason: Nausea And Vomiting) bumetanide 0.5 mg tablet 0.5 mg PO DAILY losartan 100 mg tablet 100 mg PO QAM sevelamer carbonate 800 mg tablet 800 mg PO TID RenaPlex-D 800 mcg-12.5 mg -2,000 unit tablet 1 tab PO QPM Discharge Orders: Discharge Order (Routine); Ordered 09/27/23 Ordered By: Juancarlos Swanson Referrals: Florentino Barrera MD [Primary Care Provider] - 10/03/23 1:30 pm Discharge Diet: Usual diet Discharge Activity: Resume usual activity and Increase activity as tolerated Patient Instructions: Isosorbide Mononitrate (By mouth), Heart Failure (GEN), Dialysis Diet (DC), Hemodialysis (DC), CHF Stoplight, Opioid Safety Activity Restrictions/Additional Instructions: Continue all antihypertensives before. Imdur 60 mg daily has been added to your medication list. Please check your blood pressures daily at home maintain a blood pressure diary and follow-up with a primary care provider on set appointment for further adjustment of medications as needed. New goal blood pressure should be less than 140/90 mmHg. Discharge Attestations Time Spent in Discharge Care*: greater than 30 min Specific Discharge Activities: educating patient, discussing with pcp/other providers, discussing with correctional casework specialist/social workers/dc planners, documenting/other paperwork and evaluating patient/reviewing data Status at Discharge: Cognitive status at discharge: cognitively intact , Behavioral status at discharge: cooperative , Functional status at discharge: independent ambulation , Overall status at discharge: patient is back to baseline Quality Metrics Clinical Quality Measures [ No reported AMI, CVA or VTE this stay] Coding Level of Care Code 07864 Total time (in minutes) for Discharge: 60 Diagnoses End-stage renal disease on hemodialysis N18.6; Z99.2
[2023-09-27] MEDS: heparin, porcine 1,000 unit/mL INJ 10 mL 1000 UNIT IV (14:00)
[2023-09-27] MEDS: heparin, porcine 1,000 unit/mL INJ 10 mL 10000 UNIT INTRACATH (14:00)
== END 2023-09-27 16:08 | disposition home or self-care (01) | DRG 304 ==
LOC: ER 15:04 → MEDSURG 16:54 → ICU 17:26 → MEDSURG 09-26 13:54
PROVIDERS: Hospitalist; Admitting Provider Student in an Organized Health Care Education/Training Program; Emergency Provider Physician Assistant; PCP Family Medicine; Visit Provider Student in an Organized Health Care Education/Training Program
DX: I16.0 Hypertensive urgency (principal); I50.33 Acute on chronic diastolic (congestive) heart failure; J96.21 Acute and chronic respiratory failure with hypoxia; N18.6 End stage renal disease; I13.2 Hypertensive heart and chronic kidney disease with heart failure and with stage 5 chronic kidney disease, or end stage renal disease; Z99.2 Dependence on renal dialysis; E03.9 Hypothyroidism, unspecified; Z87.891 Personal history of nicotine dependence; Z79.02 Long term (current) use of antithrombotics/antiplatelets; Z79.82 Long term (current) use of aspirin; D63.1 Anemia in chronic kidney disease
CPT/HCPCS: 36415; 36600; 71045; 71275; 74018; 80051; 80053; 80061; 82330; 82607; 82746; 82805; 83036; 83540; 83550; 83735; 83880; 84100; 84145; 84443; 85025; 85378; 86706; 87340; 87486; 87581; 87633; 90935; 93005; 94664; 96365; 96372; 96374; 96375; 96376; 99285; J1644; J1940; Q3014; Q9967

== ENCOUNTER 2023-11-13 12:59 | Inpatient (IN) | payer OTHER, SELFPAY ==
[2023-11-13 13:02] VITALS: BP 171/76; PULSE 70; RESP 18; TEMP 37.2; O2SAT 94
[2023-11-13 13:47] LABS: Basophils % 0.3 %; Eosinophils # 0.4 10^3/uL (0.0-0.8); Eosinophils % 6.3 %; Hematocrit 37.4 % (37-53); Lymphocytes # 0.8 10^3/uL (0.8-4.8); Lymphocytes % 12.8 %; Mean Corpuscular Hemoglobin 29.1 pg (27-33); Mean Platelet Volume 9.3 fL (7.4-10.4); Monocytes # 0.4 10^3/uL (0.2-0.9); Monocytes % 6.6 %; Neutrophils # 4.57 10^3/uL (1.8-7.7); Neutrophils % 73.8 %; Nucleated Red Blood Cells % 0 %; Platelet Count 348 10^3/cmm (157-399); Red Blood Count 3.98 10^6/uL (3.85-5.65); Red Cell Distribution Width 17.9 % (12.1-15.1); White Blood Count 6.19 10^3/uL (3.29-11.43)
--- NOTE | 2023-11-13 13:47 | W.ED.ABDPA2 ---
HPI - Abdominal Pain General: Chief Complaint: Abdominal Pain Stated Complaint: abd pain Time Seen by Provider: 11/13/23 13:38 History of Present Illness: 58-year-old man with a history of end-stage renal disease on dialysis, hypertension and hypothyroidism who presents to the emergency room with abdominal pain. He just started peritoneal dialysis around a week ago. He says he started to feel very distended and he pulled out some fluid. But now he has abdominal pain diffusely. No known fevers. No altered mental status. No focal motor deficits. He thought he might be constipated so he took some MiraLAX and has had diarrhea since yesterday. Review of Systems Narrative: Constitutional symptoms: Negative except as documented in HPI. Skin symptoms: Negative except as documented in HPI. Eye symptoms: Negative except as documented in HPI. ENMT symptoms: Negative except as documented in HPI. Respiratory symptoms: Negative except as documented in HPI. Cardiovascular symptoms: Negative except as documented in HPI. Gastrointestinal symptoms: Negative except as documented in HPI. Genitourinary symptoms: Negative except as documented in HPI. Musculoskeletal symptoms: Negative except as documented in HPI. Neurologic symptoms: Negative except as documented in HPI. Psychiatric symptoms: Negative except as documented in HPI. Endocrine symptoms: Negative except as documented in HPI. [facility] PFSH: Medical History Hypothyroidism Hypertension Surgical History H/O aortic aneurysm repair Social History Smoking and tobacco/nicotine status: former use of tobacco/nicotine Alcohol intake: never Physical Exam Narrative: EXAM NARRATIVE: General: Alert, no acute distress. Skin: Warm, dry. Head: Normocephalic, atraumatic. Neck: Supple, trachea midline. Eye: Extraocular movements are intact. Ears, nose, mouth and throat: mucosa moist. Cardiovascular: Regular, Normal peripheral perfusion. Respiratory: Lungs are clear to auscultation, respirations are non-labored, breath sounds are equal, Symmetrical chest wall expansion. Gastrointestinal: Soft, slightly distended abdomen with a central periumbilical hernia and a fluid wave with moderate diffuse nonlocalized tenderness. Musculoskeletal: Normal ROM, no deformity. Neurological: Alert and oriented, No focal neurological deficit observed. Psychiatric: Cooperative, appropriate mood & affect. Course Vital Signs: Vital signs: Vital Signs Temperature 98.9 F 11/13/23 13:02 Pulse Rate 70 11/13/23 13:02 Respiratory Rate 18 11/13/23 13:02 Blood Pressure 171/76 11/13/23 13:02 Pulse Oximetry 94 11/13/23 13:02 MDM - Abdominal Pain Medical Decision Making Medical decision making: Differential diagnosis including but not limited to and based on the above HPI, review of systems and physical exam: My primary concern in this patient with peritoneal dialysis and diffuse abdominal pain would be bacterial peritonitis. Sending fluid for analysis. Also getting a BUN and creatinine and basic lab work. Mag and Phos. Orders placed to evaluate differential diagnosis based on the above differential, HPI and physical exam Lab Review: Laboratory results were reviewed and interpreted by myself the emergency room physician. No leukocytosis. White count is 6. Hemoglobin stable 11.6. BUN and creatinine are 46 and 9.5 which is not unexpected in this dialysis patient. Peritoneal fluid is positive for 35,000 cells with 95% leukocytes. I reviewed the patient's medical record. Reexamination: Patient remained stable. He still has some abdominal pain. No increased work of breathing. No altered mental status. No focal motor deficits. Assessment and plan: Spontaneous bacterial peritonitis End-stage renal disease on dialysis -Initiating IV therapy with cephalosporin: Cefepime. -I discussed the patient with the hospitalist on-call who is admitting the patient. - Discussed findings and plan with patient. Answered any questions. - All laboratory values were reviewed and interpreted personally by myself, the ER physician - All imaging was reviewed and interpreted personally by myself, the ER physician. - Evaluation and treatment of this problem were appropriate in the emergency setting Lab Data 11/13/23 13:35 11/13/23 13:35 Labs/Radiology: Laboratory Results WBC 6.19 10^3/uL (3.29-11.43) 11/13/23 13:35 RBC 3.98 10^6/uL (3.85-5.65) 11/13/23 13:35 Hgb 11.60 g/dL (11.27-16.99) 11/13/23 13:35 Hct 37.4 % (37-53) 11/13/23 13:35 MCV 94.0 fl (82-101) 11/13/23 13:35 MCH 29.1 pg (27-33) 11/13/23 13:35 MCHC 31.0 g/dL (30-55) 11/13/23 13:35 RDW 17.9 % (12.1-15.1) H 11/13/23 13:35 Plt Count 348 10^3/cmm (157-399) 11/13/23 13:35 MPV 9.3 fL (7.4-10.4) 11/13/23 13:35 Neut % (Auto) 73.8 % 11/13/23 13:35 Lymph % (Auto) 12.8 % 11/13/23 13:35 Mckean % (Auto) 6.6 % 11/13/23 13:35 Eos % (Auto) 6.3 % 11/13/23 13:35 Baso % (Auto) 0.3 % 11/13/23 13:35 Neut # (Auto) 4.57 10^3/uL (1.8-7.7) 11/13/23 13:35 Lymph # (Auto) 0.8 10^3/uL (0.8-4.8) 11/13/23 13:35 Mckean # (Auto) 0.4 10^3/uL (0.2-0.9) 11/13/23 13:35 Eos # (Auto) 0.4 10^3/uL (0.0-0.8) 11/13/23 13:35 Baso # (Auto) 0.0 10^3/uL (0.0-0.1) 11/13/23 13:35 Nucleated RBC % (auto) 0 % 11/13/23 13:35 Nucleated RBCs # 0.0 /100WBC 11/13/23 13:35 Sodium 144 mmol/L (136-145) 11/13/23 13:35 Potassium 3.4 mmol/L (3.5-5.1) L 11/13/23 13:35 Chloride 98 mmol/L (98-107) 11/13/23 13:35 Carbon Dioxide 29 mmol/L (22-29) 11/13/23 13:35 Anion Gap 20.4 (5-19) H 11/13/23 13:35 BUN 46 mg/dL (6-20) H 11/13/23 13:35 Creatinine 9.5 mg/dL (0.7-1.2) H* 11/13/23 13:35 GFR Calculation 5.7 mL/min (90-130) L 11/13/23 13:35 Glucose 101 mg/dL (65-115) 11/13/23 13:35 Calculated Osmolality 310 mOsm/kg (285-295) H 11/13/23 13:35 Calcium 9.7 mg/dL (8.5-10.5) 11/13/23 13:35 Total Bilirubin 0.3 mg/dL (0.15-1.2) 11/13/23 13:35 AST 9 U/L (0-40) 11/13/23 13:35 ALT 8 U/L (0-41) 11/13/23 13:35 Alkaline Phosphatase 79 U/L (40-130) 11/13/23 13:35 Total Protein 7.0 g/dL (6.6-8.7) 11/13/23 13:35 Albumin 3.9 g/dL (3.5-5.2) 11/13/23 13:35 Globulin 3.1 g/dL (1.3-4.6) 11/13/23 13:35 Lipase 18 U/L (13-60) 11/13/23 13:35 Peritoneal Color Pale yellow (Pale Yellow) 11/13/23 14:20 Peritoneal Appearance Turbid (Clear) 11/13/23 14:20 Peritoneal WBC 50615 /uL 11/13/23 14:20 Peritoneal RBC 0 10^3/uL 11/13/23 14:20 Periton Mononu # Auto 3.117 10^3/uL 11/13/23 14:20 Mononuclear WBCs % 9.000 % 11/13/23 14:20 Polynuclear WBCs % 91.000 % 11/13/23 14:20 Perit Polynuc WBCs # 31.334 10^3/uL 11/13/23 14:20 Peritoneal Diff Commnt Yes 11/13/23 14:20 No radiology studies performed this visit Discharge Plan Discharge Patient Disposition: Admitted As Inpatient Clinical Impression: Acute bacterial peritonitis Condition: Stable Coding Level of Care Code ED Condenser Tester for Javier Bullock
[2023-11-13 14:03] LABS: Alanine Aminotransferase 8 U/L (0-41); Albumin Level 3.9 g/dL (3.5-5.2); Alkaline Phosphatase 79 U/L (40-130); Anion Gap 20.4 (5-19); Aspartate Amino Transferase 9 U/L (0-40); Blood Urea Nitrogen 46 mg/dL (6-20); Calcium 9.7 mg/dL (8.5-10.5); Carbon Dioxide 29 mmol/L (22-29); Chloride 98 mmol/L (98-107); Creatinine Clr Calc Pharmacy 9.1357; Globulin 3.1 g/dL (1.3-4.6); Glomerular Filtration Rate 5.7 mL/min (90-130); Glucose 101 mg/dL (65-115); Lipase 18 U/L (13-60); Osmolality Calculated 310 mOsm/kg (285-295); Potassium 3.4 mmol/L (3.5-5.1); Sodium 144 mmol/L (136-145); Total Bilirubin 0.3 mg/dL (0.15-1.2)
[2023-11-13 14:57] LABS: Appearance, Peritoneal Fluid Turbid (Clear); Color, Peritoneal Fluid Pale Yellow (Pale Yellow)
[2023-11-13 14:58] LABS: Pathology Referral Yes
[2023-11-13 15:04] LABS: Mononuclear #, Pertinoneal Fl 3.117 10^3/uL; Polynuclear # Cells, Perit 31.334 10^3/uL; RBC Pertioneal Fluid 0 10^3/uL; WBC Peritoneal Fluid 34451 /uL
[2023-11-13] MEDS: cefepime 2,000 MG in sodium chloride 0.9% (plus) 50 ML 100 MG IV (15:22)
--- NOTE | 2023-11-13 17:22 | P.HP_ITS ---
Providers/Chief Complaint 2 Primary Care Provider: Florentino Barrera MD Chief Complaint: abd pain History of Present Illness Celestine Farrell is a 58 year old male who has history of AAA repair in June at [facility] patient had postoperative complications requiring dialysis he was then transition to peritoneal dialysis, he has been using peritoneal dialysis catheter for last few weeks, his last hemodialysis was this morning, patient stating that he started experiencing abdominal bloating to the point he started thinking that his abdominal wall will explode he has not noted any nausea vomiting or fever. He is endorsing generalized weakness fatigue and muscle cramps all over. He still has hemodialysis catheter in place. He smokes cigarettes on daily basis, he is endorsing diarrhea. In the ER there is concern for SBP peritoneal sample was sent for further studies. I have consulted nephro to start hemodialysis. Review of Systems 2 Const: Reports: chills, body aches, fatigue and malaise; Denies: fever(s) Eyes: Denies: eye discomfort ENMT: Denies: throat pain Card: Denies: chest pain Resp: Reports: dyspnea GI: Denies: abdominal pain : Denies: flank pain Medications/Allergies Home Medications Medication Instructions Recorded Confirmed Last Taken Type amlodipine 10 mg tablet 10 mg PO QAM 07/17/23 11/13/23 11/13/23 History aspirin 81 mg tablet,delayed 81 mg PO BEDTIME 07/17/23 11/13/23 11/12/23 History release clopidogrel 75 mg tablet 75 mg PO QAM 07/17/23 11/13/23 11/13/23 History levothyroxine 50 mcg tablet 50 mcg PO QAM 07/17/23 11/13/23 11/13/23 History metoprolol tartrate 100 mg tablet 100 mg PO BID 07/17/23 11/13/23 11/13/23 History atorvastatin 40 mg tablet 40 mg PO BEDTIME 09/25/23 11/13/23 11/12/23 History losartan 100 mg tablet 100 mg PO QAM 09/25/23 11/13/23 11/13/23 History ondansetron HCl 4 mg tablet 4 mg PO Q8H PRN Nausea And Vomiting 09/25/23 11/13/23 Unknown History sevelamer carbonate 800 mg tablet 800 mg PO TID 09/25/23 11/13/23 11/13/23 History vit B,C-folic ac 800 mcg-zinc 12.5 1 tab PO QPM on non dialysis days 09/25/23 11/13/23 11/12/23 History mg-selen-D3 2,000 unit-vit E tablet (RenaPlex-D) isosorbide mononitrate 60 mg 60 mg PO DAILY #30 tabs 09/27/23 11/13/23 11/13/23 Rx tablet,extended release 24 hr acetaminophen 500 mg tablet 1,000 mg PO Q6H PRN Pain 11/13/23 11/13/23 Unknown History bumetanide 2 mg tablet 2 mg PO DAILY 11/13/23 11/13/23 11/13/23 History calcitriol 0.25 mcg capsule 0.25 mcg PO DAILY 11/13/23 11/13/23 11/13/23 History docusate sodium 100 mg capsule 100 mg PO BID 11/13/23 11/13/23 11/13/23 History (Colace) gentamicin 0.1 % topical cream 1 applic topical PRN PRN TO PORT 11/13/23 11/13/23 Unknown History hydralazine 25 mg tablet 25 mg PO BID 11/13/23 11/13/23 11/13/23 History pantoprazole 40 mg tablet,delayed 40 mg PO DAILY PRN Acid Reflux 11/13/23 11/13/23 Unknown History release Allergies Allergy/AdvReac Type Severity Reaction Status Date / Time adhesive Allergy ALGY-Rash Verified 11/13/23 13:09 Penicillins Allergy Unknown Verified 11/13/23 13:09 PFSH Acute 2 PFSH: Medical History Hypothyroidism Hypertension Surgical History H/O aortic aneurysm repair Social History Smoking and tobacco/nicotine status: former use of tobacco/nicotine Alcohol intake: never Vitals/I&O/Wt Last Vital Signs Temp 98.9 F 11/13/23 13:02 Pulse 70 11/13/23 13:02 Resp 18 11/13/23 13:02 BP 171/76 11/13/23 13:02 Pulse Ox 94 11/13/23 13:02 Weight last 48 hrs Weight 90.265 kg Physical Exam 2 Narrative: Pleasant cooperative tender abdomen Nonfocal Patient has a dialysis access and peritoneal dialysis catheter in place Nonfocal neuroexam GCS 15 S1, S2 Currently on room air Data 11/13/23 13:35 11/13/23 13:35 A&P Assessment and plan (1) End-stage renal disease on hemodialysis: (2) SBP (spontaneous bacterial peritonitis): Plan SBP Hold off on usage of peritoneal dialysis catheter Will use hemodialysis access to dialyze him now onwards Consult nephro Start antibiotics Requested diagnostic paracentesis Patient is full code Start renal dialysis diet Patient is an active smoker No active chest pain Complaining of diarrhea Hypertension: Continue antihypertensive regimen Hypothyroidism continue levothyroxine AAA repair continue aspirin atorvastatin Review of records revealed patient had AAA repair in [place] when he developed renal failure and required hemodialysis Patient was recently discharged from the hospital after management of hypertensive urgency, volume overload, oxygen requirement improved with dialysis and blood pressure management. Attestations 2 Medical Necessity Statement*: More than 2 midnights anticipated Diagnoses End-stage renal disease on hemodialysis N18.6; Z99.2 SBP (spontaneous bacterial peritonitis) K65.2
[2023-11-13 19:21] VITALS: BP 169/78; PULSE 69; RESP 16; O2SAT 96
[2023-11-13 20:56] VITALS: BP 164/85; PULSE 70; RESP 17; TEMP 37; O2SAT 93
[2023-11-13] MEDS: sevelamer 800 mg Tablet PO (22:19)
[2023-11-13] MEDS: atorvastatin 40 mg Tablet PO (22:19)
[2023-11-13] MEDS: aspirin 81 mg EC Tablet PO (22:19)
[2023-11-13] MEDS: heparin 5,000 unit/mL INJ 1 mL 5000 UNIT SUBCUT (22:19)
--- NOTE | 2023-11-13 22:37 | PC.NURSE ---
Patient states he is having diarrhea. Patient states he took a laxative at home, but was not having diarrhea prior to taking the laxative 2 days ago.
--- NOTE | 2023-11-13 22:41 | PC.NURSE ---
Patient refusing gown.
[2023-11-14] VITALS (7 sets, daily range): BP systolic 136–158; BP diastolic 63–79; PULSE 61–75; RESP 17–20; TEMP 36.4–36.9; O2SAT 90–92
[2023-11-14] MEDS: piperacillin-tazobactam 3.375 GM in sodium chloride 0.9% (plus) 50 ML IV ×2 (02:25→14:52)
[2023-11-14 02:51] LABS: Add Urine Culture? No; Add Urine Microscopic? YES; Bacteria Urine TRACE /hpf; Bilirubin Urine Neg (Negative); Blood Urine Neg (Negative); Glucose Urine UA Norm (Normal); Hyaline Casts Urine 0-4 /lpf; Ketones Urine Negative (Negative); Leukocyte Esterase Urine Negative (Negative); Mucus Urine 2+ /hpf; Nitrate Urine Negative (Negative); Protein Urine 1+ (Negative); Sperm Urine 1+ /hpf; Squamous Epithelial Cell Urine 0-4 /hpf (0-5); Urine Appearance Clear (CLEAR); Urine Color Yellow (Yellow); Urobilinogen Urine Neg (Negative); WBC Urine 0-4 /hpf (0-5); pH Urine 7 (5-7)
[2023-11-14] MEDS: levothyroxine 50 mcg Tablet PO (05:41)
[2023-11-14] MEDS: losartan 50 mg Tablet 100 MG PO (05:41)
[2023-11-14] MEDS: amlodipine 10 mg Tablet PO (05:41)
[2023-11-14] MEDS: clopidogrel 75 mg Tablet PO (05:41)
[2023-11-14 06:10] LABS: Basophils % 0.3 %; Eosinophils # 0.5 10^3/uL (0.0-0.8); Eosinophils % 8.5 %; Hematocrit 32.6 % (37-53); Lymphocytes # 1.5 10^3/uL (0.8-4.8); Lymphocytes % 25.6 %; Mean Corpuscular Hemoglobin 29.3 pg (27-33); Mean Corpuscular Volume 94.5 fl (82-101); Mean Platelet Volume 9.9 fL (7.4-10.4); Monocytes # 0.4 10^3/uL (0.2-0.9); Monocytes % 7.3 %; Neutrophils # 3.49 10^3/uL (1.8-7.7); Neutrophils % 58.1 %; Nucleated Red Blood Cells % 0 %; Platelet Count 278 10^3/cmm (157-399); Red Blood Count 3.45 10^6/uL (3.85-5.65); Red Cell Distribution Width 17.7 % (12.1-15.1); White Blood Count 6.01 10^3/uL (3.29-11.43)
[2023-11-14 06:35] LABS: Anion Gap 21.7 (5-19); Blood Urea Nitrogen 50 mg/dL (6-20); Calcium 8.9 mg/dL (8.5-10.5); Carbon Dioxide 26 mmol/L (22-29); Chloride 97 mmol/L (98-107); Creatinine Clr Calc Pharmacy 9.1035; Glomerular Filtration Rate 5.7 mL/min (90-130); Glucose 90 mg/dL (65-115); Magnesium 2.1 mg/dL (1.7-2.3); Osmolality Calculated 305 mOsm/kg (285-295); Potassium 3.7 mmol/L (3.5-5.1); Sodium 141 mmol/L (136-145)
--- NOTE | 2023-11-14 07:13 | P.CONIM_ITS ---
Providers/Reason For Consult 2 Consulting Physician/Specialty*: [facility]/Nephrology Reason for Consult*: ESRD Attending Physician: Hillary Montanez MD Primary Care Provider: Florentino Barrera MD History of Present Illness History of Present Illness Celestine Farrell is a 58 year old male 58-year-old male with history of prior opiate abuse, end-stage renal disease, recently switched to peritoneal dialysis from hemodialysis presented to the emergency department due to abdominal pain. Patient had been on peritoneal dialysis for 1 week now and had noted increasing abdominal distention pain along with generalized weakness. Lab data significant for potassium of 3.4 PD fluid cuture growing + GNR. Blood cultures pending Review of Systems 2 Narrative: Other ros negative Medications/Allergies Home Medications Medication Instructions Recorded Confirmed Last Taken Type amlodipine 10 mg tablet 10 mg PO QAM 07/17/23 11/13/23 11/13/23 History aspirin 81 mg tablet,delayed 81 mg PO BEDTIME 07/17/23 11/13/23 11/12/23 History release clopidogrel 75 mg tablet 75 mg PO QAM 07/17/23 11/13/23 11/13/23 History levothyroxine 50 mcg tablet 50 mcg PO QAM 07/17/23 11/13/23 11/13/23 History metoprolol tartrate 100 mg tablet 100 mg PO BID 07/17/23 11/13/23 11/13/23 History atorvastatin 40 mg tablet 40 mg PO BEDTIME 09/25/23 11/13/23 11/12/23 History losartan 100 mg tablet 100 mg PO QAM 09/25/23 11/13/23 11/13/23 History ondansetron HCl 4 mg tablet 4 mg PO Q8H PRN Nausea And Vomiting 09/25/23 11/13/23 Unknown History sevelamer carbonate 800 mg tablet 800 mg PO TID 09/25/23 11/13/23 11/13/23 History vit B,C-folic ac 800 mcg-zinc 12.5 1 tab PO QPM on non dialysis days 09/25/23 11/13/23 11/12/23 History mg-selen-D3 2,000 unit-vit E tablet (RenaPlex-D) isosorbide mononitrate 60 mg 60 mg PO DAILY #30 tabs 09/27/23 11/13/23 11/13/23 Rx tablet,extended release 24 hr acetaminophen 500 mg tablet 1,000 mg PO Q6H PRN Pain 11/13/23 11/13/23 Unknown History bumetanide 2 mg tablet 2 mg PO DAILY 11/13/23 11/13/23 11/13/23 History calcitriol 0.25 mcg capsule 0.25 mcg PO DAILY 11/13/23 11/13/23 11/13/23 History docusate sodium 100 mg capsule 100 mg PO BID 11/13/23 11/13/23 11/13/23 History (Colace) gentamicin 0.1 % topical cream 1 applic topical PRN PRN TO PORT 11/13/23 11/13/23 Unknown History hydralazine 25 mg tablet 25 mg PO BID 11/13/23 11/13/23 11/13/23 History pantoprazole 40 mg tablet,delayed 40 mg PO DAILY PRN Acid Reflux 11/13/23 11/13/23 Unknown History release Allergies Allergy/AdvReac Type Severity Reaction Status Date / Time adhesive Allergy ALGY-Rash Verified 11/13/23 13:09 Penicillins Allergy Unknown Verified 11/13/23 13:09 Current Medications Generic Name Dose Route Start Last Admin Trade Name Freq PRN Reason Stop Dose Admin Amlodipine Besylate 10 mg 11/14/23 06:00 11/14/23 05:41 Amlodipine 10 Mg Tablet PO 10 mg QAM TEX Administration Aspirin 81 mg 11/13/23 21:00 11/13/23 22:19 Aspirin 81 Mg Ec Tablet PO 81 mg BEDTIME TEX Administration Atorvastatin Calcium 40 mg 11/13/23 21:00 11/13/23 22:19 Atorvastatin 40 Mg Tablet PO 40 mg BEDTIME TEX Administration Clopidogrel Bisulfate 75 mg 11/14/23 06:00 11/14/23 05:41 Clopidogrel 75 Mg Tablet PO 75 mg QAM TEX Administration Heparin Sodium (Porcine) 5,000 unit 11/13/23 21:00 11/13/23 22:19 Heparin 5,000 Unit/Ml Inj 1 Ml SUBCUT 5,000 unit Q12H TEX Administration Piperacillin Sod/Tazobactam 50 mls @ 12.5 mls/hr 11/14/23 03:00 11/14/23 05:43 Sod 3.375 gm/ Sodium Chloride IV Infused Q12H TEX Infusion Levothyroxine Sodium 50 mcg 11/14/23 06:00 11/14/23 05:41 Levothyroxine 50 Mcg Tablet PO 50 mcg QAM TEX Administration Losartan Potassium 100 mg 11/14/23 06:00 11/14/23 05:41 Losartan 50 Mg Tablet PO 100 mg QAM TEX Administration Sevelamer Carbonate 800 mg 11/13/23 21:00 11/13/23 22:19 Sevelamer 800 Mg Tablet PO 800 mg TID TEX Administration PFSH Acute 2 PFSH: Medical History Hypothyroidism Hypertension Surgical History H/O aortic aneurysm repair Social History Smoking and tobacco/nicotine status: former use of tobacco/nicotine Alcohol intake: never Vitals/I&O/Wt Last Vital Signs Temp 98.5 F 11/14/23 04:00 Pulse 70 11/14/23 04:00 Resp 18 11/14/23 04:00 BP 136/65 11/14/23 04:00 Pulse Ox 90 11/14/23 04:00 O2 Del Method Room Air 11/13/23 19:34 11/13/23 11/14/23 11/14/23 22:59 06:59 14:59 Intake Total 50 / 50 410 / 460 Output Total 50 / 50 Balance 50 / 50 360 / 410 Weight last 48 hrs Weight 89.584 kg Weight 89.403 kg Weight 90.265 kg Physical Exam 2 Narrative: Awake alert, no acute distress HEENT S1-S2 regular rate and rhythm per report Lungs clear per report Abdomen distended with PD catheter in place No pedal edema Data 11/14/23 05:35 11/14/23 05:35 A&P Assessment and plan (1) End-stage renal disease on hemodialysis: 1. End-stage renal disease: Patient was doing hemodialysis but then switched to PD PD about a week ago. Patient reports difficulty with PD at home and now has abdominal distention and +gram-negative rods. Peritoneal fluid. Patient would like to stop PD and continue hemodialysis at this point. Will request PD catheter removal. Continue Zosyn for now Will give intraperitoneal antibiotics until catheter can be removed. 2. History of hypertension 3 history of AAA repair Patient evaluated using audiovisual cart. Time spent 40 minutes. Consult Attestations 2 Medical Necessity Statement: per mediicne team Coding Level of Care Code Acute Code for Chg Fwd Diagnoses End-stage renal disease on hemodialysis N18.6; Z99.2
[2023-11-14 08:03] LABS: Hepatitis B Surface AB < 3.5 (11.5-1000); Hepatitis B Surface Antigen Non-Reactive (Nonreactive)
[2023-11-14] MEDS: isosorbide mononitrate ER 60 mg Tablet PO (09:39)
[2023-11-14] MEDS: bumetanide 1 mg Tablet 2 MG PO (09:39)
[2023-11-14] MEDS: metoprolol tartrate 50 mg Tablet 100 MG PO ×2 (09:39→16:52)
[2023-11-14] MEDS: sevelamer 800 mg Tablet PO ×3 (09:39→20:32)
[2023-11-14] MEDS: calcitriol 0.25 mcg Capsule PO (09:39)
[2023-11-14] MEDS: heparin 5,000 unit/mL INJ 1 mL 5000 UNIT SUBCUT ×2 (09:40→20:32)
[2023-11-14] MEDS: hyDRALAzine 25 mg Tablet PO ×2 (09:40→16:52)
--- NOTE | 2023-11-14 09:51 | PC.CHAP ---
Pastoral Care Encounter/Spiritual Assessment Type of Contact [] Declined resident services supervisor visit [] Patient/Family/Request visit [] Outpatient visit [] Follow-up visit [] Physician referral [] Code/Alert [] Routine visit [] Staff referral [] Actively dying [x] Patient sleeping [] Family support [] [] Out of room [] Palliative care [] [] Receiving care in room [] Pre-surgical visit [] Trauma [] Long length of stay [] ICU visit [] Other: Relational/Emotional Strength [] Patient feels connected with others/family/visitors/staff [] Distress [] Loneliness/isolation [] Abandonment Spirituality of Patient [] Person of Camryn [] Attends Druze of their Camryn [] Believes in Prayer [] Reads Bible or Jewish materials [] There are Spiritual issues to be addressed Inspector [employer]ision Interventions [] Prayer [] Active listening [] Non-anxious presence [] Spiritual/emotional support [] Crisis/trauma care [] Spiritual counseling [] Bereavement support [] Provided bereavement packet [] Provided Bible/devotional materials [] Provided toy/stuffed animal, coloring book to patient or family member [] Provided Communion [] Anointing/[place] [] Salvation [] Completed spiritual assessment [] Other: Impact on Illness or Injury [] Angry [] Fearful [] Anxious [] Often cries [] Exhaustion [] Unable to work [] Unable to attend roman catholic [] Unable to walk/stand [] Unable to read [] Unable to drive [] Unable to eat/drink [] Unable to sleep [] Unable to be with family [] Patient intubated [] Other: Summary Time spent with patient
[2023-11-14] MEDS: heparin, porcine 1,000 unit/mL INJ 10 mL 1000 UNIT IV ×2 (10:45→11:29)
[2023-11-14] MEDS: heparin, porcine 1,000 unit/mL INJ 10 mL 10000 UNIT INTRACATH ×3 (11:28→16:39)
[2023-11-14] MEDS: CEFEPIME XX (12:13)
[2023-11-14] MEDS: [UNRECOGNIZED DRUG - OTHER] XX (12:13)
[2023-11-14] MEDS: DEX XX (12:13)
--- NOTE | 2023-11-14 12:35 | PM.PN ---
Subjective Subjective: Patient is doing well Plan for dialysis Will consult Dr. Beckford to remove peritoneal drain Culture from peritoneal fluid growing gram-negative chrissie and has not developed any allergic reaction to Zosyn I do not think patient has any calcium allergy as of now Vitals/I&O/Wt Last Vital Signs Temp 97.5 F L 11/14/23 11:49 Pulse 61 11/14/23 11:49 Resp 18 11/14/23 11:49 BP 140/69 11/14/23 11:49 Pulse Ox 90 11/14/23 11:49 O2 Del Method Room Air 11/14/23 11:49 11/13/23 11/14/23 11/14/23 22:59 06:59 14:59 Intake Total 50 / 50 410 / 460 480 / 480 Output Total 50 / 50 Balance 50 / 50 360 / 410 480 / 480 Weight last 48 hrs Weight 89.584 kg Weight 89.403 kg Weight 90.265 kg Physical Exam Narrative: Patient is awake and alert Nontender abdomen Nonfocal neuroexam Awake and alert GCS 15 Currently on room air S1, S2 No active fever Pleasant cooperative sitting in the bed Data 11/14/23 05:35 11/14/23 05:35 Micro: Microbiology 11/13/23 14:20 Gram Stain - Final Ankle - Peritoneal Body Fluid Culture - Preliminary Gram Negative Rods A&P Assessment and plan (1) Acute bacterial peritonitis: (2) SBP (spontaneous bacterial peritonitis): (3) End-stage renal disease on hemodialysis: (4) Hypoxia: Plan Bacterial peritonitis Plan to remove peritoneal catheter Plan to dialyze him today through HD catheter Will find chair time, case assembler is aware Culture showing gram-negative chrissie Afebrile No leukocytosis Full code Dr. Beckford consulted Spoke with Dr.Komana Mayfield Medical Necessity Statement*: Continue medical management Diagnoses Acute bacterial peritonitis K65.9 SBP (spontaneous bacterial peritonitis) K65.2 End-stage renal disease on hemodialysis N18.6; Z99.2 Hypoxia R09.02
--- NOTE | 2023-11-14 13:35 | P.CONIM_ITS ---
Providers/Reason For Consult 2 Consulting Physician/Specialty*: Dr. Chadwick Beckford, DO/General surgery Reason for Consult*: Removal of tunneled peritoneal dialysis catheter Attending Physician: Geovanny Weinstein MD Primary Care Provider: Florentino Barrera MD History of Present Illness History of Present Illness Celestine Farrell is a 58 year old male who presented to the hospital with abdominal pain. He reports that for the last several days he has been getting diffuse dull abdominal pain. He feels like he is very bloated. Movement and palpation makes pain worse. Nothing seems to make the pain better. He also reports diarrhea. He denies any nausea, emesis, constipation, hematochezia and/or melena. 4 months ago he underwent AAA repair and subsequently developed renal failure. He has a hemodialysis catheter but for the last few weeks he has been using a tunneled peritoneal dialysis catheter. This catheter ends and his pelvis but it is tunneled up through the abdominal wall and under his skin coming out of his left anterior chest. He is believed to have spontaneous bacterial peritonitis and general surgery was consulted for removal of tunneled peritoneal dialysis catheter. Review of Systems 2 General: Reports: 10 or more systems reviewed and unremarkable except in HPI and below Medications/Allergies Home Medications Medication Instructions Recorded Confirmed Last Taken Type amlodipine 10 mg tablet 10 mg PO QAM 07/17/23 11/13/23 11/13/23 History aspirin 81 mg tablet,delayed 81 mg PO BEDTIME 07/17/23 11/13/23 11/12/23 History release clopidogrel 75 mg tablet 75 mg PO QAM 07/17/23 11/13/23 11/13/23 History levothyroxine 50 mcg tablet 50 mcg PO QAM 07/17/23 11/13/23 11/13/23 History metoprolol tartrate 100 mg tablet 100 mg PO BID 07/17/23 11/13/23 11/13/23 History atorvastatin 40 mg tablet 40 mg PO BEDTIME 09/25/23 11/13/23 11/12/23 History losartan 100 mg tablet 100 mg PO QAM 09/25/23 11/13/23 11/13/23 History ondansetron HCl 4 mg tablet 4 mg PO Q8H PRN Nausea And Vomiting 09/25/23 11/13/23 Unknown History sevelamer carbonate 800 mg tablet 800 mg PO TID 04/11/13/23 11/13/23 History vit B,C-folic ac 800 mcg-zinc 12.5 1 tab PO QPM on non dialysis days 09/25/23 11/13/23 11/12/23 History mg-selen-D3 2,000 unit-vit E tablet (RenaPlex-D) isosorbide mononitrate 60 mg 60 mg PO DAILY #30 tabs 09/27/23 11/13/23 11/13/23 Rx tablet,extended release 24 hr acetaminophen 500 mg tablet 1,000 mg PO Q6H PRN Pain 11/13/23 11/13/23 Unknown History bumetanide 2 mg tablet 2 mg PO DAILY 11/13/23 11/13/23 11/13/23 History calcitriol 0.25 mcg capsule 0.25 mcg PO DAILY 11/13/23 11/13/23 11/13/23 History docusate sodium 100 mg capsule 100 mg PO BID 11/13/23 11/13/23 11/13/23 History (Colace) gentamicin 0.1 % topical cream 1 applic topical PRN PRN TO PORT 11/13/23 11/13/23 Unknown History hydralazine 25 mg tablet 25 mg PO BID 11/13/23 11/13/23 11/13/23 History pantoprazole 40 mg tablet,delayed 40 mg PO DAILY PRN Acid Reflux 11/13/23 11/13/23 Unknown History release Allergies Allergy/AdvReac Type Severity Reaction Status Date / Time adhesive Allergy ALGY-Rash Verified 11/13/23 13:09 Current Medications Generic Name Dose Route Start Last Admin Trade Name Shaw PRN Reason Stop Dose Admin Amlodipine Besylate 10 mg 11/14/23 06:00 11/15/23 06:21 Amlodipine 10 Mg Tablet PO 10 mg QAM TEX Administration Aspirin 81 mg 11/13/23 21:00 11/14/23 20:32 Aspirin 81 Mg Ec Tablet PO 81 mg BEDTIME TEX Administration Atorvastatin Calcium 40 mg 11/13/23 21:00 11/15/23 21:34 Atorvastatin 40 Mg Tablet PO 40 mg BEDTIME TEX Administration Bumetanide 2 mg 11/14/23 09:00 11/15/23 08:42 Bumetanide 1 Mg Tablet PO 2 mg DAILY TEX Administration Calcitriol 0.25 mcg 11/14/23 09:00 11/15/23 08:42 Calcitriol 0.25 Mcg Capsule PO 0.25 mcg DAILY TEX Administration Clopidogrel Bisulfate 75 mg 11/14/23 06:00 11/15/23 06:21 Clopidogrel 75 Mg Tablet PO 75 mg QAM TEX Administration Heparin Sodium (Porcine) 5,000 unit 11/13/23 21:00 11/15/23 21:34 Heparin 5,000 Unit/Ml Inj 1 Ml SUBCUT 5,000 unit Q12H TEX Administration Hydralazine HCl 25 mg 11/14/23 09:00 11/15/23 18:12 Hydralazine 25 Mg Tablet PO 25 mg BID TEX Administration Piperacillin Sod/Tazobactam 50 mls @ 12.5 mls/hr 11/14/23 03:00 11/15/23 20:26 Sod 3.375 gm/ Sodium Chloride IV Infused Q12H TEX Infusion Isosorbide Mononitrate 60 mg 11/14/23 09:00 11/15/23 08:42 Isosorbide Mononitrate Er 60 Mg Tablet PO 60 mg DAILY TEX Administration Levothyroxine Sodium 50 mcg 11/14/23 06:00 11/15/23 06:21 Levothyroxine 50 Mcg Tablet PO 50 mcg QAM TEX Administration Losartan Potassium 100 mg 11/14/23 06:00 11/15/23 06:21 Losartan 50 Mg Tablet PO 100 mg QAM TEX Administration Metoprolol Tartrate 100 mg 11/14/23 09:00 11/15/23 18:12 Metoprolol Tartrate 50 Mg Tablet PO 100 mg BID TEX Administration Multivitamins 1 each 11/14/23 18:00 11/15/23 18:12 Z-Bjvxurj-Yppjlhc C Tablet PO 1 each QPM TEX Administration Sevelamer Carbonate 800 mg 11/13/23 21:00 11/15/23 21:34 Sevelamer 800 Mg Tablet PO 800 mg TID TEX Administration PFSH Acute 2 PFSH: Medical History Congestive heart failure Hypothyroidism Hypertension Surgical History S/P AAA repair H/O aortic aneurysm repair Social History Smoking and tobacco/nicotine status: former use of tobacco/nicotine Alcohol intake: never Vitals/I&O/Wt Last Vital Signs Temp 98.0 F 11/15/23 20:00 Pulse 62 11/15/23 20:00 Resp 20 H 11/15/23 20:00 BP 147/79 11/15/23 20:00 Pulse Ox 93 11/15/23 20:00 O2 Del Method Room Air 11/15/23 20:00 11/15/23 11/15/23 11/15/23 06:59 14:59 22:59 Intake Total 240 / 5510 410 / 410 530 / 940 Output Total 200 / 200 Balance 240 / 2472 210 / 210 530 / 740 Weight last 48 hrs Weight 192 lb 2 oz Weight 199 lb 1.591 oz Weight 197 lb 8 oz Physical Exam 2 Narrative: General : Patient is well developed , no acute distress, oriented x3 Head : Normal cephalic, a-traumatic. Ears : Pinnae and external canal are normal. Hearing is normal. Eyes : PERRLA, Sclera and injection are normal. No conjunctival discharge. Nose : Mucous membranes are without erythema. Throat : buccal mucosa is normal, gums are without significant recession or hypertrophy. Lungs : Equal chest rise bilaterally, no use of accessory muscles, trachea is midline. Cor : Rate and rhythm are normal. Abdomen : Soft, ND, NT, no g/r/m Extremities : No edema, no cyanosis or clubbing, dorsalis pedis pulses are present bilaterally, non-tender to palpation of calves. Upper extremities are normal bilaterally. Back : non-tender to palpation, no CVA tenderness. Neuro : CN II - XII intact, Upper and lower extremities have equal and full strength Data 11/15/23 05:16 11/15/23 05:16 Micro: Microbiology 11/13/23 14:20 Gram Stain - Final Ankle - Peritoneal Body Fluid Culture - Final Klebsiella pneumoniae A&P Assessment and plan (1) Acute bacterial peritonitis: (2) End-stage renal disease on hemodialysis: Plan Continue hemodialysis I am unable to remove tunneled peritoneal dialysis catheter at this time as he is currently getting an infusion of antibiotics through it which is to instill for 7 hours and then will take another 30 minutes to remove. Plan for removal of tunneled peritoneal dialysis catheter tomorrow The risks and benefits of the procedure, including but not limited to, bleeding, further infection, scar, numbness, pain, inability to remove catheter, retained foreign body, or explained to the patient. He is understanding of the risks and wished to proceed. Informed consent was obtained Coding Level of Care Code 68718 Diagnoses Acute bacterial peritonitis K65.9 End-stage renal disease on hemodialysis N18.6; Z99.2
[2023-11-14] MEDS: b-complex-vitamin c Tablet 1 EACH PO (16:52)
--- NOTE | 2023-11-14 20:15 | PC.NURSE ---
Addendum entered by Keyana Briggs RN 11/14/23 22:44: PD fluid that did return was cloudy. Addendum entered by Keyana Briggs RN 11/14/23 22:18: Patient connected to a second drainage bag to attempt to get the rest of the fluid off that was put in (2,000 ml). Patient educated to move around and try repositioning. No more drainage came. Original Note: PD fluid/antibiotic drained from PD drain for one hour. Bag weight 1,500 grams.
[2023-11-14] MEDS: aspirin 81 mg EC Tablet PO (20:32)
[2023-11-14] MEDS: atorvastatin 40 mg Tablet PO (20:32)
--- NOTE | 2023-11-14 22:30 | PC.HD ---
Dialysis intake 500ml, 2.8L net fluid removal, but 2L fluid instilled via PD cath for antibiotic dwell so post HD weight includes the peritoneal fluid.
[2023-11-15] VITALS: BP 148/79; PULSE 78; RESP 20; TEMP 36.7; O2SAT 90
[2023-11-15] MEDS: piperacillin-tazobactam 3.375 GM in sodium chloride 0.9% (plus) 50 ML IV ×2 (03:55→16:03)
[2023-11-15 04:00] VITALS: BP 161/85; PULSE 71; RESP 20; TEMP 36.8; O2SAT 92
[2023-11-15 04:42] VITALS: BMI 29.2
[2023-11-15 05:25] LABS: Basophils % 0.6 %; Eosinophils # 0.4 10^3/uL (0.0-0.8); Eosinophils % 5.4 %; Hematocrit 31.6 % (37-53); Lymphocytes # 1.1 10^3/uL (0.8-4.8); Lymphocytes % 15.6 %; Mean Corpuscular Hemoglobin 29.3 pg (27-33); Mean Corpuscular Volume 94.6 fl (82-101); Mean Platelet Volume 9.5 fL (7.4-10.4); Monocytes # 0.4 10^3/uL (0.2-0.9); Monocytes % 5.7 %; Neutrophils # 5.25 10^3/uL (1.8-7.7); Neutrophils % 72.4 %; Nucleated Red Blood Cells % 0 %; Platelet Count 237 10^3/cmm (157-399); Red Blood Count 3.34 10^6/uL (3.85-5.65); Red Cell Distribution Width 17.4 % (12.1-15.1); White Blood Count 7.24 10^3/uL (3.29-11.43)
[2023-11-15 05:49] LABS: Blood Urea Nitrogen 28 mg/dL (6-20); Calcium 8.9 mg/dL (8.5-10.5); Carbon Dioxide 26 mmol/L (22-29); Chloride 101 mmol/L (98-107); Glomerular Filtration Rate 8.1 mL/min (90-130); Glucose 100 mg/dL (65-115); Osmolality Calculated 300 mOsm/kg (285-295); Sodium 142 mmol/L (136-145)
[2023-11-15] MEDS: losartan 50 mg Tablet 100 MG PO (06:21)
[2023-11-15] MEDS: levothyroxine 50 mcg Tablet PO (06:21)
[2023-11-15] MEDS: clopidogrel 75 mg Tablet PO (06:21)
[2023-11-15] MEDS: amlodipine 10 mg Tablet PO (06:21)
[2023-11-15 08:00] VITALS: BP 153/83; PULSE 73; RESP 18; TEMP 36.8; O2SAT 91
[2023-11-15] MEDS: metoprolol tartrate 50 mg Tablet 100 MG PO ×2 (08:42→18:12)
[2023-11-15] MEDS: calcitriol 0.25 mcg Capsule PO (08:42)
[2023-11-15] MEDS: bumetanide 1 mg Tablet 2 MG PO (08:42)
[2023-11-15] MEDS: isosorbide mononitrate ER 60 mg Tablet PO (08:42)
[2023-11-15] MEDS: hyDRALAzine 25 mg Tablet PO ×2 (08:43→18:12)
[2023-11-15] MEDS: heparin 5,000 unit/mL INJ 1 mL 5000 UNIT SUBCUT ×2 (08:43→21:34)
[2023-11-15] MEDS: sevelamer 800 mg Tablet PO ×3 (08:44→21:34)
--- NOTE | 2023-11-15 08:57 | PM.PN ---
Subjective Subjective: s/p HD yesterday Medications: Reviewed: Yes Vitals/I&O/Wt Last Vital Signs Temp 98.2 F 11/15/23 08:00 Pulse 73 11/15/23 08:00 Resp 18 11/15/23 08:00 BP 153/83 11/15/23 08:00 Pulse Ox 91 11/15/23 08:00 O2 Del Method Room Air 11/15/23 08:00 11/14/23 11/15/23 11/15/23 22:59 06:59 14:59 Intake Total 2670 / 5270 240 / 5510 360 / 360 Output Total 3038 / 3038 Balance -368 / 2232 240 / 2472 360 / 360 Weight last 48 hrs Weight 87.146 kg Weight 90.31 kg Weight 89.584 kg Weight 89.403 kg Weight 90.265 kg Physical Exam Narrative: Awake alert, no acute distress HEENT S1-S2 regular rate and rhythm per report Lungs clear per report Abdomen distended with PD catheter in place No pedal edema Data 11/15/23 05:16 11/15/23 05:16 Micro: Microbiology 11/13/23 14:20 Gram Stain - Final Ankle - Peritoneal Body Fluid Culture - Preliminary Gram Negative Rods A&P Assessment and plan (1) End-stage renal disease on hemodialysis: 1. End-stage renal disease: Patient was doing hemodialysis but then switched to PD about a week ago. Patient reports difficulty with PD at home and now has peritonitis and cultures --> +gram-negative rods in Peritoneal fluid. Patient would like to stop PD and continue hemodialysis at this point. Will request PD catheter removal. Continue Zosyn for now s/p intraperitoneal antibiotics x 1 s/p HD yesterday 2. History of hypertension 3 history of AAA repair Patient evaluated using audiovisual cart. Time spent 40 minutes. Attestations Medical Necessity Statement*: per twin Coding Level of Care Code Acute Code for [facility] Fwd Diagnoses End-stage renal disease on hemodialysis N18.6; Z99.2
[2023-11-15 11:32] VITALS: BP 143/77; PULSE 67; RESP 18; TEMP 36.4; O2SAT 96
--- NOTE | 2023-11-15 12:28 | CTR_ITS ---
PROCEDURE INFORMATION: Exam: CT Chest Without Contrast; Diagnostic Exam date and time: 11/15/2023 1:28 PM Age: 58 years old Clinical indication: Device placement; Gi device; Prior surgery; Surgery date: 6+ months; Surgery type: Aorta, dialysis cath; Additional info: Foreign body TECHNIQUE: Imaging protocol: Diagnostic computed tomography of the chest without contrast. Radiation optimization: All CT scans at this facility use at least one of these dose optimization techniques: automated exposure control; mA and/or kV adjustment per patient size (includes targeted exams where dose is matched to clinical indication); or iterative reconstruction. COMPARISON: 1. CT angio chest PE protcl [id number] 09/25/2023 4:[address] angio chest PE protcl [id number] 07/17/2023 9:[address] [place] [id number] 06/28/2023 8:27 PM RADIATION DOSE METRICS: Total DLP (mGy-cm): 615.4 FINDINGS: Tubes, catheters and devices: Right IJ central venous catheter terminates at the superior cavoatrial junction. Prior tunneled catheter entering left anterior chest wall appears to be partially removed with appearance of 2 residual short segment fragments (each measuring approximately 1 cm length) at the medial and lateral aspects of 3.9 x 1.8 cm hematoma on axial images 23-26 of series 5. More distal catheter at the level of the lower chest wall extending inferiorly to the abdominal wall also remains in place. Lungs: Bibasilar consolidations. Pleural spaces: Vnto-ys-dcyctwum right and small left pleural effusions. No pneumothorax. Heart: Stable cardiomegaly. No pericardial effusion. Coronary arteries: Moderate coronary artery calcification. Lymph nodes: Stable shotty mediastinal lymph nodes. Vasculature: Moderate systemic atherosclerotic calcification without thoracic aortic aneurysm. Bones/joints: No acute fracture. Mild degenerative changes along the spine. Soft tissues: Mild lower chest wall subcutaneous edema. PROCEDURE INFORMATION: Exam: CT Abdomen Without Contrast Exam date and time: 11/15/2023 1:28 PM Age: 58 years old Clinical indication: Device placement; Gi device; Prior surgery; Surgery date: 6+ months; Surgery type: Aorta, dialysis cath; Additional info: Foreign body TECHNIQUE: Imaging protocol: Computed tomography of the abdomen without contrast. Radiation optimization: All CT scans at this facility use at least one of these dose optimization techniques: automated exposure control; mA and/or kV adjustment per patient size (includes targeted exams where dose is matched to clinical indication); or iterative reconstruction. COMPARISON: 1[place] [id number] 06/28/2023 8:27 PM 2. CR XR abdomen 1V* [id number] 09/25/2023 3:[address] angio chest PE protcl [id number] 09/25/2023 4:06 PM RADIATION DOSE METRICS: Total DLP (mGy-cm): 615.4 FINDINGS: Tubes, catheters and devices: Partially visualized left anterior abdominal wall subcutaneous catheter penetrates the anterior abdominal wall and courses within the abdominal cavity at the level of the umbilicus with termination beyond the field of view. Liver: Normal. No mass. Gallbladder and bile ducts: Gallbladder sludge and/or cholelithiasis without CT findings of cholecystitis. No biliary ductal dilatation. Pancreas: Normal. No ductal dilation. Spleen: Normal. No splenomegaly. Adrenal glands: Normal. No mass. Kidneys and ureters: Unremarkable. Stomach and bowel: No bowel dilatation to suggest obstruction. Colonic diverticulosis. Intraperitoneal space: No free air. No significant fluid collection. Retroperitoneal space: Mild residual retroperitoneal stranding, to include at the rzlxl-lrxvyul-xytc-left perirenal spaces. Vasculature: Abdominal aortic aneurysm measures 6.3 cm in diameter, mildly decreased from May 2023 when it measured 6.8 cm diameter. Partially visualized aorto bi-iliac stent graft also with proximal SMA stent. Lymph nodes: Couple adjacent nodular right lower para-aortic soft tissue densities may represent reactive nodes, measuring up to 1 cm in the short axis on axial image 52 of series 9. Bones/joints: No acute fracture. Mild degenerative changes along the spine. Soft tissues: Diffuse abdominal wall subcutaneous edema. Small fat containing umbilical hernia. CT/CT chest abd wo [id number] IMPRESSION: 1. Partial removal of prior left anterior chest wall tunneled catheter with appearance of 2 residual fragments at the medial and lateral aspects of 3.9 x 1.8 cm left anterior chest wall hematoma. 2. Stable bvzr-xq-miyjwkbe right and small left pleural effusions. 3. Similar bibasilar consolidations likely represent compressive atelectasis, infiltrate not entirely excluded. IMPRESSION: 1. Remaining left anterior abdominal catheter as above. 2. Aorto bi-iliac stent graft with proximal SMA stent and decreased size of excluded aneurysm sac now measuring 6.3 cm diameter, previously 6.8 cm. Mild retroperitoneal stranding may represent residual from prior rupture, acute process thought less likely but not entirely excluded. Correlate with clinical findings. 3. Suspect couple prominent right lower para-aortic lymph nodes, possibly reactive. 4. Gallbladder sludge and/or cholelithiasis. 5. Colonic diverticulosis. 6. Anasarca.
--- NOTE | 2023-11-15 12:48 | P.PN_ITS ---
Subjective 2 Subjective: Patient is doing well Gram-negative chrissie in the culture, blood culture negative, Plan to remove peritoneal dialysis catheter Vitals/I&O/Wt Last Vital Signs Temp 97.5 F L 11/15/23 11:32 Pulse 67 11/15/23 11:32 Resp 18 11/15/23 11:32 BP 143/77 11/15/23 11:32 Pulse Ox 96 11/15/23 11:32 O2 Del Method Room Air 11/15/23 11:32 11/14/23 11/15/23 11/15/23 22:59 06:59 14:59 Intake Total 2670 / 5270 240 / 5510 410 / 410 Output Total 3038 / 3038 200 / 200 Balance -368 / 2232 240 / 2472 210 / 210 Weight last 48 hrs Weight 87.146 kg Weight 90.31 kg Weight 89.584 kg Weight 89.403 kg Weight 90.265 kg Physical Exam 2 Narrative: Nontender abdomen Mild distention Nonfocal neuroexam GCS 15 Awake and alert Nonfocal neuroexam S1, S2 Currently on room air Afebrile Data 11/15/23 05:16 11/15/23 05:16 Micro: Microbiology 11/13/23 14:20 Gram Stain - Final Ankle - Peritoneal Body Fluid Culture - Preliminary Gram Negative Rods A&P Assessment and plan (1) Acute bacterial peritonitis: (2) SBP (spontaneous bacterial peritonitis): (3) End-stage renal disease on hemodialysis: Plan Plan to remove peritoneal drain today After reviewing peritoneal culture report along sensitivity we will decide on antibiotics most likely patient will need at least 1 year treatment for SBP Plan to get his chair time approved from dialysis center so we could plan is discharge in next 24 to 48 hours Clinically patient is doing well Attestations 2 Medical Necessity Statement*: Continue medical management Diagnoses Acute bacterial peritonitis K65.9 SBP (spontaneous bacterial peritonitis) K65.2 End-stage renal disease on hemodialysis N18.6; Z99.2
--- NOTE | 2023-11-15 13:45 | P.OP_ITS ---
Operative Report Date of procedure: November 15, 2023 Pre-op diagnosis: Bacterial peritonitis Presence of tunneled peritoneal dialysis catheter Post-op diagnosis: same Procedure done: Attempted removal of tunneled peritoneal dialysis catheter Surgeon: Chadwick Beckford DO Anesthesia: None Estimated blood loss (mL): 0 Brief History: Per my previous note, patient has bacterial peritonitis and a tunneled peritoneal dialysis catheter. He is receiving hemodialysis currently and hospitalist requested removal of tunneled peritoneal dialysis catheter. Interestingly, the catheter goes from his pelvis but is tunneled through the abdominal wall all the way up to the left anterior chest wall before it exits the skin. Underneath the skin the catheter makes a 180 degree turn. The risks and benefits were explained and documented. Informed consent was obtained Procedure: Using gentle manual traction, the first cuff broke loose and the catheter began to be removed. Due to the very long length of tunneling from the pelvis, through the abdominal wall and anterior chest wall, there was little movement in the catheter. With continued traction I was unable to move the catheter much further and eventually the catheter broke. There was no blood loss. I ordered a CT of the chest and abdomen that showed the tunneled peritoneal dialysis catheter still present in the stomach and tunneled through the anterior abdomin al wall up into the anterior chest wall, where it remained. No longer any catheter outside of the skin. Removal was unsuccessful. Plans are to hold patient's Plavix and aspirin and attempt removal laparoscopically in the near future.
[2023-11-15 16:00] VITALS: BP 156/84; PULSE 65; RESP 16; TEMP 36.7; O2SAT 95
[2023-11-15] MEDS: b-complex-vitamin c Tablet 1 EACH PO (18:12)
--- NOTE | 2023-11-15 19:04 | PC.NURSE ---
Dr. Beckford stepped out of pts room and stated that he pulled PD tube and possible broke and to order CT ab and chest and place dressing on area. This nurse placed dressing over site and ordered CT. Dr. Beckford texted to put dressing because he had time he was going to come back. Dressing placed bedside. CT results came in and this nurse notified him results are in and he confirmed he saw them. Pt states Dr. Beckford has not come up yet (this is end of shift for nurse). Orders for NPO after midnight noted, pt informed.
[2023-11-15 20:00] VITALS: BP 147/79; PULSE 62; RESP 20; TEMP 36.7; O2SAT 93
[2023-11-15 20:47] LABS: C.Diff PCR (Lab) POSITIVE (Negative)
[2023-11-15 20:59] LABS: Clostridioides Difficile Toxin NEGATIVE (Negative)
[2023-11-15] MEDS: atorvastatin 40 mg Tablet PO (21:34)
[2023-11-16] VITALS (7 sets, daily range): BP systolic 137–189; BP diastolic 64–97; PULSE 66–71; RESP 16–18; TEMP 36.6–37.3; O2SAT 91–94; BMI 29.2
[2023-11-16] MEDS: piperacillin-tazobactam 3.375 GM in sodium chloride 0.9% (plus) 50 ML IV (03:58)
[2023-11-16] MEDS: losartan 50 mg Tablet 100 MG PO (05:29)
[2023-11-16] MEDS: levothyroxine 50 mcg Tablet PO (05:30)
[2023-11-16] MEDS: amlodipine 10 mg Tablet PO (05:30)
--- NOTE | 2023-11-16 07:15 | P.PN_ITS ---
Subjective 2 Subjective: no new c/o Medications: Reviewed: Yes Vitals/I&O/Wt Last Vital Signs Temp 99.1 F 11/16/23 04:00 Pulse 67 11/16/23 04:00 Resp 18 11/16/23 04:00 BP 154/75 11/16/23 05:29 Pulse Ox 91 11/16/23 04:00 O2 Del Method Room Air 11/16/23 04:00 11/15/23 11/16/23 11/16/23 22:59 06:59 14:59 Intake Total 770 / 1180 Balance 770 / 980 Weight last 48 hrs Weight 87.09 kg Weight 87.146 kg Weight 90.31 kg Physical Exam 2 Narrative: Awake alert, no acute distress HEENT S1-S2 regular rate and rhythm per report Lungs clear per report Abdomen distended with PD catheter in place No pedal edema Data 11/15/23 05:16 11/15/23 05:16 Micro: Microbiology 11/13/23 14:20 Gram Stain - Final Ankle - Peritoneal Body Fluid Culture - Final Klebsiella pneumoniae A&P Assessment and plan (1) End-stage renal disease on hemodialysis: 1. End-stage renal disease: Patient was doing hemodialysis but then switched to PD about a week ago. Patient reports difficulty with PD at home and now has peritonitis and cultures --> +gram-negative rods in Peritoneal fluid. Patient would like to stop PD and continue hemodialysis at this point. PD s/p intraperitoneal antibiotics x 1 HD today 2. History of hypertension 3 history of AAA repair Patient evaluated using audiovisual cart. Time spent 40 minutes. Attestations 2 Medical Necessity Statement*: per twin Coding Level of Care Code Acute Code for [facility] Fwd Diagnoses End-stage renal disease on hemodialysis N18.6; Z99.2
[2023-11-16 07:56] LABS: Basophils % 0.4 %; Eosinophils # 0.5 10^3/uL (0.0-0.8); Hematocrit 30.8 % (37-53); Lymphocytes # 1.2 10^3/uL (0.8-4.8); Lymphocytes % 16.3 %; Mean Corpuscular HGB Conc 31.2 g/dL (30-55); Mean Corpuscular Hemoglobin 29.4 pg (27-33); Mean Corpuscular Volume 94.5 fl (82-101); Mean Platelet Volume 9.7 fL (7.4-10.4); Monocytes # 0.5 10^3/uL (0.2-0.9); Monocytes % 7.5 %; Neutrophils % 68.5 %; Nucleated Red Blood Cells % 0 %; Platelet Count 222 10^3/cmm (157-399); Red Blood Count 3.26 10^6/uL (3.85-5.65); Red Cell Distribution Width 17.2 % (12.1-15.1); White Blood Count 7.16 10^3/uL (3.29-11.43)
[2023-11-16 08:15] LABS: Blood Urea Nitrogen 35 mg/dL (6-20); C Reactive Protein 135.9 mg/L (0.0-4.9); Calcium 8.7 mg/dL (8.5-10.5); Carbon Dioxide 22 mmol/L (22-29); Chloride 106 mmol/L (98-107); Creatinine Clr Calc Pharmacy 10.0424; Glomerular Filtration Rate 6.5 mL/min (90-130); Glucose 90 mg/dL (65-115); Osmolality Calculated 302 mOsm/kg (285-295); Sodium 142 mmol/L (136-145)
[2023-11-16] MEDS: bumetanide 1 mg Tablet 2 MG PO (08:22)
[2023-11-16] MEDS: calcitriol 0.25 mcg Capsule PO (08:22)
[2023-11-16] MEDS: sevelamer 800 mg Tablet PO ×2 (08:22→14:02)
[2023-11-16] MEDS: isosorbide mononitrate ER 60 mg Tablet PO (08:22)
[2023-11-16] MEDS: heparin 5,000 unit/mL INJ 1 mL 5000 UNIT SUBCUT (08:23)
--- NOTE | 2023-11-16 08:53 | PC.HD ---
Heparin 1000 units loading dose administered via HD catheter at 0840 per project economist's orders.
--- NOTE | 2023-11-16 10:55 | PM.DCS ---
Discharge Providers Date of Admission: 11/13/23 19:08 Date of Discharge: November 16, 2023 Attending Provider at Admission: Hillary Montanez MD Attending Provider at Discharge: Geovanny Weinstein MD Primary Care Provider: Florentino Barrera MD Diagnoses at Discharge Discharge Diagnosis (1) End-stage renal disease on hemodialysis: Status: Acute Reason for Visit Reason for Visit: abd pain Hospital Course Hospital Course 58-year male who was put on dialysis after AAA repair complication leading to renal failure, he was recently put on peritoneal dialysis at [facility], his last hemodialysis session was roughly 2 weeks ago before admission, in the hospital patient was admitted for management evaluation of secondary bacterial peritonitis, peritoneal fluid did show significant neutrophils, patient was put on broad-spectrum IV antibiotic, blood culture remain negative, peritoneal fluid showing Klebsiella which is pansensitive,, remained afebrile, nephro was consulted patient was dialyzed during hospitalization, we have obtained a chair time Monday at [facility], Dr. Beckford was consulted to remove peritoneal drain however patient has been taking aspirin and Plavix for his AAA repair, we will not be able to do procedure until Plavix has been held for at least 5 days, at the time of discharge patient is hemodynamically stable, he will follow-up with Dr. Beckford on Monday, I will discharge him on 14-day regimen of cefpodoxime, patient has C. difficile PCR positive however toxins are negative, he has not multiple bowel movements in the hospital, I will also give him 14-day regimen of p.o. vancomycin. His last dose of aspirin Plavix was on 11/14. Secondary to difficult position of peritoneal drain decision has been made to electively remove the peritoneal drain on outpatient settings. Patient's hemoglobin has remained stable he has remained hemodynamically stable, Patient already has a tunneled dialysis catheter CT/CT chest abd wo [id number] IMPRESSION: 1. Partial removal of prior left anterior chest wall tunneled catheter with appearance of 2 residual fragments at the medial and lateral aspects of 3.9 x 1.8 cm left anterior chest wall hematoma. 2. Stable [id number] right and small left pleural effusions. 3. Similar bibasilar consolidations likely represent compressive atelectasis, infiltrate not entirely excluded. IMPRESSION: 1. Remaining left anterior abdominal catheter as above. 2. Aorto bi-iliac stent graft with proximal SMA stent and decreased size of excluded aneurysm sac now measuring 6.3 cm diameter, previously 6.8 cm. Mild retroperitoneal stranding may represent residual from prior rupture, acute process thought less likely but not entirely excluded. Correlate with clinical findings. 3. Suspect couple prominent right lower para-aortic lymph nodes, possibly reactive. 4. Gallbladder sludge and/or cholelithiasis. 5. Colonic diverticulosis. 6. Anasarca. Physical Exam Narrative: Awake alert Nonfocal neuroexam Abdomen soft Peritoneal drain in place S1, S2 Discharge Data Studies Completed and Pending Completed Studies During Hospitalization Category Date Time Status CT chest abd wo [id number] Stat Cat Scan 11/15/23 12:28 Completed Radiology Impressions Chest/Abdomen CT 11/15/23 12:28 IMPRESSION: 1. Partial removal of prior left anterior chest wall tunneled catheter with appearance of 2 residual fragments at the medial and lateral aspects of 3.9 x 1.8 cm left anterior chest wall hematoma. 2. Stable zcns-[id number] right and small left pleural effusions. 3. Similar bibasilar consolidations likely represent compressive atelectasis, infiltrate not entirely excluded. IMPRESSION: 1. Remaining left anterior abdominal catheter as above. 2. Aorto bi-iliac stent graft with proximal SMA stent and decreased size of excluded aneurysm sac now measuring 6.3 cm diameter, previously 6.8 cm. Mild retroperitoneal stranding may represent residual from prior rupture, acute process thought less likely but not entirely excluded. Correlate with clinical findings. 3. Suspect couple prominent right lower para-aortic lymph nodes, possibly reactive. 4. Gallbladder sludge and/or cholelithiasis. 5. Colonic diverticulosis. 6. Anasarca. Laboratory Results WBC 7.16 10^3/uL (3.29-11.43) 11/16/23 07:10 RBC 3.26 10^6/uL (3.85-5.65) L 11/16/23 07:10 Hgb 9.60 g/dL (11.27-16.99) L 11/16/23 07:10 Hct 30.8 % (37-53) L 11/16/23 07:10 MCV 94.5 fl (82-101) 11/16/23 07:10 MCH 29.4 pg (27-33) 11/16/23 07:10 MCHC 31.2 g/dL (30-55) 11/16/23 07:10 RDW 17.2 % (12.1-15.1) H 11/16/23 07:10 Plt Count 222 10^3/cmm (157-399) 11/16/23 07:10 MPV 9.7 fL (7.4-10.4) 11/16/23 07:10 Neut % (Auto) 68.5 % 11/16/23 07:10 Lymph % (Auto) 16.3 % 11/16/23 07:10 Collin % (Auto) 7.5 % 11/16/23 07:10 Eos % (Auto) 7.0 % 11/16/23 07:10 Baso % (Auto) 0.4 % 11/16/23 07:10 Neut # (Auto) 4.90 10^3/uL (1.8-7.7) 11/16/23 07:10 Lymph # (Auto) 1.2 10^3/uL (0.8-4.8) 11/16/23 07:10 Collin # (Auto) 0.5 10^3/uL (0.2-0.9) 11/16/23 07:10 Eos # (Auto) 0.5 10^3/uL (0.0-0.8) 11/16/23 07:10 Baso # (Auto) 0.0 10^3/uL (0.0-0.1) 11/16/23 07:10 Nucleated RBC % (auto) 0 % 11/16/23 07:10 Nucleated RBCs # 0.0 /100WBC 11/16/23 07:10 Sodium 142 mmol/L (136-145) 11/16/23 07:10 Potassium 4.0 mmol/L (3.5-5.1) 11/16/23 07:10 Chloride 106 mmol/L (98-107) 11/16/23 07:10 Carbon Dioxide 22 mmol/L (22-29) 11/16/23 07:10 Anion Gap 18.0 (5-19) 11/16/23 07:10 BUN 35 mg/dL (6-20) H 11/16/23 07:10 Creatinine 8.5 mg/dL (0.7-1.2) H* 11/16/23 07:10 GFR Calculation 6.5 mL/min (90-130) L 11/16/23 07:10 Glucose 90 mg/dL (65-115) 11/16/23 07:10 Calculated Osmolality 302 mOsm/kg (285-295) H 11/16/23 07:10 Calcium 8.7 mg/dL (8.5-10.5) 11/16/23 07:10 Magnesium 2.1 mg/dL (1.7-2.3) 11/14/23 05:35 Total Bilirubin 0.3 mg/dL (0.15-1.2) 11/13/23 13:35 AST 9 U/L (0-40) 11/13/23 13:35 ALT 8 U/L (0-41) 11/13/23 13:35 Alkaline Phosphatase 79 U/L (40-130) 11/13/23 13:35 C-Reactive Protein 135.9 mg/L (0.0-4.9) H 11/16/23 07:10 Total Protein 7.0 g/dL (6.6-8.7) 11/13/23 13:35 Albumin 3.9 g/dL (3.5-5.2) 11/13/23 13:35 Globulin 3.1 g/dL (1.3-4.6) 11/13/23 13:35 Lipase 18 U/L (13-60) 11/13/23 13:35 Urine Color Yellow (Yellow) 11/14/23 02:30 Urine Appearance Clear (CLEAR) 11/14/23 02:30 Urine pH 7 (5-7) 11/14/23 02:30 Ur Specific [place] 1.010 (1.005-1.030) 11/14/23 02:30 Urine Protein 1+ (Negative) H 11/14/23 02:30 Urine Glucose (UA) Norm (Normal) 11/14/23 02:30 Urine Ketones Negative (Negative) 11/14/23 02:30 Urine Blood Neg (Negative) 11/14/23 02:30 Urine Nitrate Negative (Negative) 11/14/23 02:30 Urine Bilirubin Neg (Negative) 11/14/23 02:30 Urine Urobilinogen Neg mg/dL (Negative) 11/14/23 02:30 Ur Leukocyte Esterase Negative (Negative) 11/14/23 02:30 Urine RBC None /hpf (0-2) 11/14/23 02:30 Urine WBC 0-4 /hpf (0-5) H 11/14/23 02:30 Ur Squamous Epith Cells 0-4 /hpf (0-5) H 11/14/23 02:30 Amorphous Sediment Not Reportable 11/14/23 02:30 Urine Bacteria Trace /hpf (NONE) 11/14/23 02:30 Hyaline Casts 0-4 /lpf H 11/14/23 02:30 Urine Mucus 2+ /hpf 11/14/23 02:30 Urine Sperm 1+ /hpf 11/14/23 02:30 Peritoneal Color Pale yellow (Pale Yellow) 11/13/23 14:20 Peritoneal Appearance Turbid (Clear) 11/13/23 14:20 Peritoneal WBC 61238 /uL 11/13/23 14:20 Peritoneal RBC 0 10^3/uL 11/13/23 14:20 Periton Mononu # Auto 3.117 10^3/uL 11/13/23 14:20 Mononuclear WBCs % 9.000 % 11/13/23 14:20 Polynuclear WBCs % 91.000 % 11/13/23 14:20 Perit Polynuc WBCs # 31.334 10^3/uL 11/13/23 14:20 Peritoneal Diff Commnt Yes 11/13/23 14:20 C. difficile (PCR) Positive (Negative) H 11/15/23 19:14 C.difficile Tox Confrm Negative (Negative) 11/15/23 19:14 Hep Bs Antigen Non-reactive (Nonreactive) 11/14/23 07:25 Hep Bs Antibody < 3.5 (11.5-1000) L 11/14/23 07:25 Vitals Last Vital Signs Temp 98.1 F 11/16/23 08:53 Pulse 70 11/16/23 08:53 Resp 16 11/16/23 08:53 BP 153/76 11/16/23 08:53 Pulse Ox 94 11/16/23 08:00 O2 Del Method Room Air 11/16/23 07:57 Discharge Plan Discharge Patient Disposition: Home Condition: Stable Prescriptions: New cefpodoxime 200 mg tablet 200 mg PO BID Qty: 28 0RF Rx Instructions: must administer with a meal/food vancomycin [Vancocin] 125 mg capsule 125 mg PO Q6H 10 Days Qty: 40 0RF Continued metoprolol tartrate 100 mg tablet 100 mg PO BID amlodipine 10 mg tablet 10 mg PO QAM levothyroxine 50 mcg tablet 50 mcg PO QAM atorvastatin 40 mg tablet 40 mg PO BEDTIME ondansetron HCl 4 mg tablet 4 mg PO Q8H PRN (Reason: Nausea And Vomiting) losartan 100 mg tablet 100 mg PO QAM sevelamer carbonate 800 mg tablet 800 mg PO TID RenaPlex-D 800 mcg-12.5 mg -2,000 unit tablet 1 tab PO QPM isosorbide mononitrate 60 mg Tablet Extended Release 24 Hr 60 mg PO DAILY Qty: 30 0RF bumetanide 2 mg tablet 2 mg PO DAILY hydralazine 25 mg tablet 25 mg PO BID acetaminophen 500 mg Tablet 1,000 mg PO Q6H PRN (Reason: Pain) Colace 100 mg Capsule 100 mg PO BID gentamicin 0.1 % cream 1 applic TOPICAL PRN PRN (Reason: TO PORT) calcitriol 0.25 mcg capsule 0.25 mcg PO DAILY pantoprazole 40 mg tablet,delayed release (DR/EC) 40 mg PO DAILY PRN (Reason: Acid Reflux) Held aspirin 81 mg Tablet,Delayed Release (Dr/Ec) 81 mg PO BEDTIME Hold Instructions: Resume on 11/30/23. Discontinued clopidogrel 75 mg Tablet 75 mg PO QAM Discharge Orders: Discharge Order (Routine); Ordered 11/16/23 Ordered By: Geovanny Weinstein Referrals: [facility] [Other] - 11/17/23 4:00 pm (Your chair time is Monday, Monday and Monday @ 4:00 p.m.) Florentino Barrera MD [Primary Care Provider] - Chadwick Beckford DO [Physician] - 11/20/23 (Follow-up on Monday with Dr. Beckford for removal of peritoneal drain) Patient Instructions: Dialysis Diet (DC), Hemodialysis (DC), Opioid Safety Activity Restrictions/Additional Instructions: Please do not take Plavix at all You can start taking aspirin a week after your peritoneal drain removal You can follow-up with Dr. Beckford on Monday for outpatient peritoneal drain removal You can go for dialysis on Monday at [facility] in [place] Discharge Attestations Time Spent in Discharge Care*: greater than 30 min Status at Discharge: Cognitive status at discharge: cognitively intact, Behavioral status at discharge: cooperative, Quality Metrics Clinical Quality Measures [ No reported AMI, CVA or VTE this stay] Coding Level of Care Code Acute Code for Chg Fwd Diagnoses End-stage renal disease on hemodialysis N18.6; Z99.2
--- NOTE | 2023-11-16 11:57 | PC.HD ---
During last 30 min of HD trx, patient c/o some mild bilateral leg cramping. UF goal reduced to 300; HD continued. Net fluid removed 2100 (goal was 2500). Patient states cramping resolved.
--- NOTE | 2023-11-16 13:18 | P.PN_ITS ---
Subjective 2 Subjective: Patient seen and examined. Denies any abdominal pain, nausea or emesis Vitals/I&O/Wt Last Vital Signs Temp 97.9 F 11/16/23 11:56 Pulse 71 11/16/23 11:56 Resp 16 11/16/23 11:56 BP 137/72 11/16/23 11:56 Pulse Ox 94 11/16/23 08:00 O2 Del Method Room Air 11/16/23 07:57 11/15/23 11/16/23 11/16/23 22:59 06:59 14:59 Intake Total 770 / 1180 350 / 350 Output Total 2396 / 2396 Balance 770 / 980 -2046 / -2046 Weight last 48 hrs Weight 187 lb 6.287 oz Weight 192 lb Weight 192 lb 2 oz Weight 199 lb 1.591 oz Physical Exam 2 Narrative: General: No acute distress, awake alert and oriented x 3 Abdomen: Soft, nontender, nondistended, reducible umbilical hernia Data 11/16/23 07:10 11/16/23 07:10 Micro: Microbiology 11/13/23 14:20 Gram Stain - Final Ankle - Peritoneal Body Fluid Culture - Final Klebsiella pneumoniae A&P Assessment and plan (1) Acute bacterial peritonitis: (2) End-stage renal disease on hemodialysis: (3) Umbilical hernia: Plan Continue hemodialysis Follow-up as outpatient to discuss possible removal of peritoneal dialysis catheter and laparoscopic repair of umbilical hernia with mesh Surgically stable for discharge Medical management per hospitalist Attestations 2 Medical Necessity Statement*: per primary Coding Level of Care Code 91382 Diagnoses Acute bacterial peritonitis K65.9 End-stage renal disease on hemodialysis N18.6; Z99.2 Umbilical hernia K42.9
[2023-11-16] MEDS: vancomycin 125 mg Capsule PO (14:02)
--- NOTE | 2023-11-16 15:10 | PC.NURSE ---
Discharge pending whether or not pt will be getting surgery today.
== END 2023-11-16 16:04 | disposition home or self-care (01) | DRG 371 ==
LOC: ER 17:07 → MEDSURG 19:08
PROVIDERS: Hospitalist; Physician Assistant; Admitting Provider Internal Medicine; Emergency Provider Emergency Medicine; PCP Family Medicine; Visit Provider Internal Medicine
DX: K65.2 Spontaneous bacterial peritonitis (principal); N18.6 End stage renal disease; I13.2 Hypertensive heart and chronic kidney disease with heart failure and with stage 5 chronic kidney disease, or end stage renal disease; I50.9 Heart failure, unspecified; Z99.2 Dependence on renal dialysis; Z87.891 Personal history of nicotine dependence; E03.9 Hypothyroidism, unspecified; R09.02 Hypoxemia; K42.9 Umbilical hernia without obstruction or gangrene; B96.1 Klebsiella pneumoniae [K. pneumoniae] as the cause of diseases classified elsewhere; Z53.09 Procedure and treatment not carried out because of other contraindication
CPT/HCPCS: 36415; 71250; 74150; 80048; 80053; 80503; 81001; 83690; 83735; 85025; 86140; 86706; 87070; 87075; 87077; 87186; 87205; 87324; 87340; 87493; 89050; 90935; 96372; 99285; J0692; J1644; J2543; Q3014

== ENCOUNTER 2023-11-26 21:25 | Inpatient (IN) | payer OTHER, SELFPAY ==
--- NOTE | 2023-11-26 21:32 | ECG_ITS ---
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 Measurements Intervals [address] Rate: 68 P: 16 LA: 201 QRS: 37 QRSD: 108 T: 268 QT: 423 QTc: 451 Interpretive Statements SINUS RHYTHM ST DEVIATION AND MODERATE T-WAVE ABNORMALITY, CONSIDER ANTERIOR ISCHEMIA [-0.1+ mV T-WAVE IN V3/V4] Compared to ECG 09/25/2023 15:11:56 Possible ischemia now present T-wave abnormality still present Electronically Signed On 11-28-2023 21:32:13 CDT by Rah Argueta M.D. [id number] f
[2023-11-26 21:40] VITALS: BP 154/89; PULSE 68; RESP 22; TEMP 36.9; O2SAT 92
--- NOTE | 2023-11-26 21:49 | XRR_ITS ---
PROCEDURE INFORMATION: Exam: XR Chest Exam date and time: 11/26/2023 10:13 PM Age: 58 years old Clinical indication: Dyspnea; Prior surgery; Surgery date: 1-6 months; Surgery type: Port placement August 2023; Additional info: SOB TECHNIQUE: Imaging protocol: Radiologic exam of the chest. Views: 1 view. COMPARISON: CT chest abd [id number] 11/15/2023 1:28 PM FINDINGS: Tubes, catheters and devices: Right chest wall tunneled hemodialysis catheter. Lungs: Mild pulmonary edema. Pleural spaces: Small bilateral pleural effusions with adjacent atelectasis. No pneumothorax. Heart/Mediastinum: Mild cardiomegaly. Bones/joints: Unremarkable. XR/XR chest 1V portable [id number] IMPRESSION: Cardiomegaly with mild central vascular congestion, pulmonary edema, and small pleural effusions, similar compared to multiple prior chest radiographs likely representing underlying CHF/fluid overload.
--- NOTE | 2023-11-26 21:56 | ED_ITS ---
HPI - SOB/Dyspnea 2 General: Chief Complaint: Shortness of Breath/Dyspnea Stated Complaint: High blood pressure Time Seen by Provider: 11/26/23 21:39 Source: patient Mode of arrival: ambulatory Limitations: no limitations History of Present Illness: HPI Narrative: 58-year-old male with a history of end-s tage renal disease patient was on peritoneal dialysis he had SBP he no longer does peritoneal dialysis he had recently been admitted to the hospital he is now on hemodialysis he goes Monday did go Monday states that today has been having some weakness he has been feeling short of breath and has been hypertensive he denies any chest pain denies any cough or fever denies abdominal pain. Associated symptoms: Deny abdominal pain, chest pain, fever(s), nausea or vomiting Review of Systems 2 Const: Reports: fatigue and malaise; Denies: fever(s), chills, body aches or change in appetite ENMT: Denies: throat pain or dental pain Card: Denies: chest pain Resp: Reports: dyspnea GI: Denies: abdominal pain, nausea, vomiting or diarrhea Musc: Denies: neck pain or back pain Skin/Breast: Denies: rash Neuro: Denies: headache(s) PFSH ED 2 PFSH: Medical History SBP (spontaneous bacterial peritonitis) Acute bacterial peritonitis Hypoxia End-stage renal disease on hemodialysis Congestive heart failure Hypothyroidism Hypertension Surgical History S/P AAA repair H/O aortic aneurysm repair Social History Smoking and tobacco/nicotine status: former use of tobacco/nicotine Second hand smoke exposure: No Alcohol intake: never Substance/Drug Use: never Physical Exam 2 Const: COMMON NORMALS: patient oriented x3 HENMT: COMMON NORMALS: normocephalic and atraumatic HEAD & SCALP: n ormocephalic and atraumatic Eye: COMMON NORMALS: Equal, round and reactive pupils present and EOMs intact bilaterally PUPIL: Yes Equal, round and reactive pupils present Neck/C-Spine: COMMON NORMALS: full ROM and supple Chest: COMMONS NORMALS: normal inspection of the chest and normal palpation of entire chest wall Resp: COMMON NORMALS: normal respiratory effort, No retractions, No use of accessory muscles and clear to auscultation bilaterally AUSCULTATION: clear to auscultation bilaterally Cardio: COMMON NORMALS: regular rate, regular rhythm and No murmurs present (Cardio) RATE: regular rate RHYTHM: regular rhythm GI: COMMON NORMALS: Normal to inspection, nondistended, normoactive bowel sounds present, Soft to palpation, non-tender and no masses PALPATION: Yes Soft to palpation Extremity: COMMON NORMALS: normal to inspection and full ROM Neuro: COMMON NORMALS: patient oriented x3, moves all extremities and no focal motor deficits Psych: COMMON NORMALS: mental status grossly normal, Normal thought process present and cooperative THOUGHT PROCESS: Normal thought process present Skin: COMMON NORMALS: no rashes or lesions noted and no wounds GENERAL SKIN EXAM: no rashes or lesions noted Course 2 Vital Signs: Vital signs: Vital Signs Temperature 98.4 F 11/26/23 21:40 Pulse Rate 68 11/26/23 22:20 Respiratory Rate 20 H 11/26/23 22:20 Blood Pressure 160/94 11/26/23 22:20 Pulse Oximetry 87 L 11/26/23 22:20 Oxygen Delivery Me thod Nasal Cannula 11/26/23 22:20 Oxygen Flow Rate 3 11/26/23 22:20 MDM - SOB/Dyspnea Medical Decision Making Patient presents here with dyspnea he was hypoxic here is requiring 4 L at this time he did receive dialysis on Monday we will get a CTA I spoke to hospitalist will admit at this time as well. No signs of any severe fluid overload no cough no fever no pneumonia. He had no chest pain no signs of cardiac cause Medical Records I reviewed the patient's medical records. Lab Data I reviewed the patient's lab results. 11/26/23 22:05 11/26/23 22:05 Labs/Radiology: Laboratory Results WBC 9.49 10^3/uL (3.29-11.43) 11/26/23 22:05 RBC 3.48 10^6/uL (3.85-5.65) L 11/26/23 22:05 Hgb 10.30 g/dL (11.27-16.99) L 11/26/23 22:05 Hct 32.8 % (37-53) L 11/26/23 22:05 MCV 94.3 fl (82-101) 11/26/23 22:05 MCH 29.6 pg (27-33) 11/26/23 22:05 MCHC 31.4 g/dL (30-55) 11/26/23 22:05 RDW 17.7 % (12.1-15.1) H 11/26/23 22:05 Plt Count 256 10^3/cmm (157-399) 11/26/23 22:05 MPV 9.6 fL (7.4-10.4) 11/26/23 22:05 Neut % (Auto) 70.9 % 11/26/23 22:05 Lymph % (Auto) 17.5 % 11/26/23 22:05 Burke % (Auto) 5.8 % 11/26/23 22:05 Eos % (Auto) 4.2 % 11/26/23 22:05 Baso % (Auto) 1.4 % 11/26/23 22:05 Neut # (Auto) 6.73 10^3/uL (1.8-7.7) 11/26/23 22:05 Lymph # (Auto) 1.7 10^3/uL (0.8-4.8) 11/26/23 22:05 Burke # (Auto) 0.6 10^3/uL (0.2-0.9) 11/26/23 22:05 Eos # (Auto) 0.4 10^3/uL (0.0-0.8) 11/26/23 22:05 Baso # (Auto) 0.1 10^3/uL (0.0-0.1) 11/26/23 22:05 Nucleated RBC % (auto) 0 % 11/26/23 22:05 Nucleated RBCs # 0.0 /100WBC 11/26/23 22:05 Sodium 140 mmol/L (136-145) 11/26/23 22:05 Potassium 3.7 mmol/L (3.5-5.1) 11/26/23 22:05 Chloride 100 mmol/L (98-107) 11/26/23 22:05 Carbon Dioxide 28 mmol/L (22-29) 11/26/23 22:05 Anion Gap 15.7 (5-19) 11/26/23 22:05 BUN 20 mg/dL (6-20) 11/26/23 22:05 Creatinine 5.7 mg/dL (0.7-1.2) H* 11/26/23 22:05 GFR Calculation 10.3 mL/min (90-130) L 11/26/23 22:05 Glucose 103 mg/dL (65-115) 11/26/23 22:05 Calculated Osmolality 293 mOsm/kg (285-295) 11/26/23 22:05 Calcium 8.8 mg/dL (8.5-10.5) 11/26/23 22:05 Total Bilirubin 0.3 mg/dL (0.15-1.2) 11/26/23 22:05 AST 13 U/L (0-40) 11/26/23 22:05 ALT 8 U/L (0-41) 11/26/23 22:05 Alkaline Phosphatase 86 U/L (40-130) 11/26/23 22:05 Ammonia 17 umol/L (16-60) 11/26/23 22:05 NT-Pro-B Natriuret Pep > 18156 pg/mL (0-125) H 11/26/23 22:05 Total Protein 6.3 g/dL (6.6-8.7) L 11/26/23 22:05 Albumin 3.7 g/dL (3.5-5.2) 11/26/23 22:05 Globulin 2.6 g/dL (1.3-4.6) 11/26/23 22:05 All radiology interpretation(s) finalized by discharge EKG Data EKG 1: I personally reviewed and interpreted this EKG as follows: EKG Interpretation Date: 11/26/23 EKG interpretation time: 21:32 Interpretation: nsr hr [address] elevation qrs 108 qtc 440 Discharge Plan Discharge Patient Disposition: Admitted As Inpatient Clinical Impression: ESRD (end stage renal disease) on dialysis, Hypoxia, Dyspnea Condition: Stable Coding Level of Care Code ED Legal Records Manager for Javier Bullock
[2023-11-26 22:10] LABS: Basophils # 0.1 10^3/uL (0.0-0.1); Basophils % 1.4 %; Eosinophils # 0.4 10^3/uL (0.0-0.8); Eosinophils % 4.2 %; Hematocrit 32.8 % (37-53); Lymphocytes # 1.7 10^3/uL (0.8-4.8); Lymphocytes % 17.5 %; Mean Corpuscular HGB Conc 31.4 g/dL (30-55); Mean Corpuscular Hemoglobin 29.6 pg (27-33); Mean Corpuscular Volume 94.3 fl (82-101); Mean Platelet Volume 9.6 fL (7.4-10.4); Monocytes # 0.6 10^3/uL (0.2-0.9); Monocytes % 5.8 %; Neutrophils # 6.73 10^3/uL (1.8-7.7); Neutrophils % 70.9 %; Nucleated Red Blood Cells % 0 %; Platelet Count 256 10^3/cmm (157-399); Red Blood Count 3.48 10^6/uL (3.85-5.65); Red Cell Distribution Width 17.7 % (12.1-15.1); White Blood Count 9.49 10^3/uL (3.29-11.43)
[2023-11-26] MEDS: hyDRALAzine 20 mg/mL INJ 1 mL 10 MG IVP (22:18)
[2023-11-26 22:20] VITALS: BP 160/94; PULSE 68; RESP 20; O2SAT 87
[2023-11-26 22:28] LABS: Ammonia 17 umol/L (16-60)
[2023-11-26 22:37] LABS: Alanine Aminotransferase 8 U/L (0-41); Albumin Level 3.7 g/dL (3.5-5.2); Alkaline Phosphatase 86 U/L (40-130); Anion Gap 15.7 (5-19); Aspartate Amino Transferase 13 U/L (0-40); Blood Urea Nitrogen 20 mg/dL (6-20); Calcium 8.8 mg/dL (8.5-10.5); Carbon Dioxide 28 mmol/L (22-29); Chloride 100 mmol/L (98-107); Creatinine Clr Calc Pharmacy 14.7249; Globulin 2.6 g/dL (1.3-4.6); Glomerular Filtration Rate 10.3 mL/min (90-130); Glucose 103 mg/dL (65-115); Osmolality Calculated 293 mOsm/kg (285-295); Potassium 3.7 mmol/L (3.5-5.1); Sodium 140 mmol/L (136-145); Total Bilirubin 0.3 mg/dL (0.15-1.2); Total Protein 6.3 g/dL (6.6-8.7)
[2023-11-26 23:04] LABS: NT Pro B Type Natriuretic Pept > 70000 pg/mL (0-125)
--- NOTE | 2023-11-26 23:11 | ECG_ITS ---
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 Measurements Intervals [place] Rate: 68 P: 22 AK: 195 QRS: 28 QRSD: 103 T: -85 QT: 422 QTc: 451 Interpretive Statements SINUS RHYTHM POSSIBLE LEFT ATRIAL ENLARGEMENT [-0.1mV P-WAVE IN V1/V2] ST DEVIATION AND MODERATE T-WAVE ABNORMALITY, CONSIDER ANTERIOR ISCHEMIA [-0.1+ mV T-WAVE IN V3/V4] Compared to ECG 11/26/2023 21:32:53 No significant changes Electronically Signed On 11-28-2023 21:32:31 CDT by Rah Argueta M.D. [id number]
--- NOTE | 2023-11-26 23:11 | CTR_ITS ---
PROCEDURE INFORMATION: Exam: CTA Chest With Contrast Exam date and time: 11/26/2023 11:22 PM Age: 58 years old Clinical indication: Shortness of breath; Prior surgery; Surgery date: 6+ months; Surgery type: Dialysis cath. Aaa graft; Patient HX: SOB with hypoxia. History of chf. TECHNIQUE: Imaging protocol: Computed tomographic angiography of the chest with contrast. Exam focused on the arteries. 3D rendering (Not supervised by radiologist): MIP and/or 3D reconstructed images were created by the technologist. Radiation optimization: All CT scans at this facility use at least one of these dose optimization techniques: automated exposure control; mA and/or kV adjustment per patient size (includes targeted exams where dose is matched to clinical indication); or iterative reconstruction. Contrast material: OMNI 350; Contrast volume: 70 ml; Contrast route: INTRAVENOUS (IV); COMPARISON: CT angio chest PE protcl [id number] 09/25/2023 4:06 PM RADIATION DOSE METRICS: Total DLP (mGy-cm): 510.92 FINDINGS: Tubes, catheters and devices: Status post removal of left chest wall tunneled hemodialysis catheter with residual soft tissue in the subcutaneous fat and 2 ovoid hyperdensities, similar compared to prior study. Pulmonary arteries: The pulmonary arteries are adequately visualized to the proximal segmental level. Breathing artifact limits more peripheral evaluation. No filling defects are identified to suggest pulmonary artery embolism. The main pulmonary artery is normal in size. There is no evidence of right heart strain. Aorta: Atherosclerotic calcifications of the aorta are present. No aneurysm is identified. Lungs: Interlobular septal thickening and ground-glass opacification consistent with pulmonary edema. Moderate bilateral posterior lower lobe atelectasis. No obvious consolidation though consolidation is difficult to exclude in the setting. Pleural spaces: Rlxse-iu-cpaeyhjc left and ejbcwrxw-fd-dsebc right pleural effusions. No pneumothorax. Heart: Moderate cardiomegaly. No pericardial effusion or pericardial thickening. Coronary arteries: Moderate coronary artery calcification. Lymph nodes: Multiple prominent and mildly enlarged mediastinal lymph nodes, similar compared to most recent studies though definitively increased in size when compared to 07/17/2023. One example is a right precarinal lymph node measuring 19 x 13 mm on the current study compared with 17 x 11 mm on the prior study. Several other examples in the mediastinum are present. Bones/joints: No acute osseous abnormalities are seen. Soft tissues: Mild diffuse subcutaneous edema. The soft tissues are otherwise within normal limits. CT/CT angio chest PE protcl [id number] IMPRESSION: 1. No evidence of pulmonary embolism. 2. Enlarging mediastinal lymph nodes. 3. Gvfwj-cj-qukvzvlt left and qtutwqls-gj-vwwtl right pleural effusions with adjacent atelectasis, increased compared to prior study. 4. Worsening pulmonary edema.
[2023-11-26] MEDS: iohexol 350 mg/mL 500 mL Btl (per mL) IV (23:28)
[2023-11-26 23:29] LABS: Troponin(5th) Baseline 50 ng/L (0-15)
[2023-11-26 23:58] VITALS: BP 153/89; PULSE 63; RESP 18; O2SAT 86
[2023-11-27] VITALS (12 sets, daily range): BP systolic 136–163; BP diastolic 69–98; PULSE 62–75; RESP 17–20; TEMP 36.5–37.3; O2SAT 91–98; BMI 28.2
--- NOTE | 2023-11-27 00:09 | P.HP_ITS ---
Providers/Chief Complaint 2 Admitting Physician: Karyna Servin MD Primary Care Provider: Julia De Luna MD Chief Complaint: High blood pressure History of Present Illness Celestine Farrell is a 58 year old male With kidney failure currently on hemodialysis Monday as an outpatient via chest wall tunneled cath. His renal failure developed in May of this year after suffering from acute rupture of the infrarenal abdominal aortic aneurysm and subsequent AAA repair. He was recently admitted to the hospital between November 12 to November 16, 2023 for PD peritonitis. Patient had recently switched from HD to PD however he is now back on HD given recent PD peritonitis. Peritoneal fluid culture had revealed Klebsiella for which patient was discharged with oral cefpodoxime. The tunneled PD catheter was attempted to be removed on November 15, 2023 however this was complicated by fracture of the catheter. Fragments of the tunneled peritoneal catheter still remain within the abdominal and chest tract. Since he was on aspirin and Plavix at the time, surgery was deferred with recommendations to stopping the DAPT and following up as an outpatient. He followed with general surgery as an outpatient on November 22, 2023 and was planned for laparoscopic removal of the fragments on November 28, 2023. He presents today with shortness of breath, systolic blood pressure up to 190 at home. He did go to dialysis on Monday. CTA was negative for PE, did show evidence of bilateral pleural effusions and pulmonary edema. Review of Systems 2 General: Reports: 10 or more systems reviewed and unremarkable except in HPI and below Const: Denies: fever(s), chills or body aches Eyes: Denies: change in vision, blurry vision or photophobia ENMT: Reports: hoarseness; Denies: throat pain, enlarged tonsils, odynophagia or nasal congestion Card: Denies: chest pain, palpitations, irregular heart rhythm, edema, swelling of feet/ankles, lightheadedness, pre-syncope, dyspnea on exertion or orthopnea Resp: Denies: dyspnea, productive cough, non-productive cough, wheezing, stridor, pain on inspiration, change in phlegm color, hemoptysis or chest congestion GI: Denies: abdominal pain, nausea, vomiting, hematemesis, coffee ground emesis, dysphagia, heartburn, diarrhea, constipation, GI cramping, change in stool character, hematochezia or melena : Denies: flank pain, dysuria, urinary frequency, urinary urgency, urinary hesitancy or hematuria Musc: Denies: neck pain, back pain, extremity pain, joint swelling, joint warmth or deformity Neuro: Denies: headache(s), numbness in extremities, weakness in extremities, sensory changes, difficulty walking, frequent falls, dizziness, vertigo, behavioral changes, Slurred speech present or seizure-like activity Psych: Denies: anxiety, depression, suicidal ideation or homicidal ideation Endo: Denies: polyuria, polydipsia, tired all the time, cold intolerance or hot flashes Marco A/Lymph: Denies: easy bruising or easy bleeding Medications/Allergies Home Medications Medication Instructions Recorded Confirmed Last Taken Type amlodipine 10 mg tablet 10 mg PO QAM 07/17/23 11/27/23 11/26/23 History aspirin 81 mg tablet,delayed 81 mg PO BEDTIME 07/17/23 11/27/23 11/12/23 History release levothyroxine 50 mcg tablet 50 mcg PO QAM 07/17/23 11/27/23 11/26/23 History metoprolol tartrate 100 mg tablet 100 mg PO BID 07/17/23 11/27/23 11/26/23 History atorvastatin 40 mg tablet 40 mg PO BEDTIME 09/25/23 11/27/23 11/25/23 History losartan 100 mg tablet 100 mg PO QAM 09/25/23 11/27/23 11/26/23 History ondansetron HCl 4 mg tablet 4 mg PO Q8H PRN Nausea And Vomiting 09/25/23 11/27/23 Unknown History sevelamer carbonate 800 mg tablet 800 mg PO TID 09/25/23 11/27/23 11/26/23 History vit B,C-folic ac 800 mcg-zinc 12.5 1 tab PO QPM on non dialysis days 09/25/23 11/27/23 11/25/23 History mg-selen-D3 2,000 unit-vit E tablet (RenaPlex-D) isosorbide mononitrate 60 mg 60 mg PO DAILY #30 tabs 09/27/23 11/27/23 11/26/23 Rx tablet,extended release 24 hr acetaminophen 500 mg tablet 1,000 mg PO Q6H PRN Pain 11/13/23 11/27/23 Unknown History bumetanide 2 mg tablet 2 mg PO DAILY 11/13/23 11/27/23 11/26/23 History calcitriol 0.25 mcg capsule 0.25 mcg PO DAILY 11/13/23 11/27/23 11/26/23 History docusate sodium 100 mg capsule 100 mg PO BID 11/13/23 11/27/23 11/13/23 History (Colace) gentamicin 0.1 % topical cream 1 applic topical PRN PRN TO PORT 11/13/23 11/27/23 11/26/23 History hydralazine 25 mg tablet 25 mg PO BID 11/13/23 11/27/23 11/26/23 History pantoprazole 40 mg tablet,delayed 40 mg PO DAILY PRN Acid Reflux 11/13/23 11/27/23 Unknown History release cefpodoxime 200 mg tablet 200 mg PO BID #28 tabs 11/16/23 11/27/23 11/26/23 Rx Allergies Allergy/AdvReac Type Severity Reaction Status Date / Time adhesive Allergy ALGY-Rash Verified 11/26/23 21:45 PFSH Acute 2 PFSH: Medical History SBP (spontaneous bacterial peritonitis) Acute bacterial peritonitis Hypoxia End-stage renal disease on hemodialysis Congestive heart failure Hypothyroidism Hypertension Surgical History S/P AAA repair H/O aortic aneurysm repair Social History Smoking and tobacco/nicotine status: former use of tobacco/nicotine Second hand smoke exposure: No Alcohol intake: never Substance/Drug Use: never Vitals/I&O/Wt Last Vital Signs Temp 98.4 F 11/26/23 21:40 Pulse 63 11/26/23 23:58 Resp 18 11/26/23 23:58 BP 153/89 11/26/23 23:58 Pulse Ox 86 L 11/26/23 23:58 O2 Del Method Nasal Cannula 11/26/23 23:58 O2 Flow Rate 7 11/26/23 23:58 Weight last 48 hrs Weight 83.915 kg Physical Exam 2 Narrative: General: No acute distress, AO x3 HEENT: PERRLA, esotropia Chest: Normal vesicular breath sounds, no added sounds, equal good air entry bilaterally CVS: S1-S2 regular, no murmurs, no tachycardia, no gallops, no rubs Abdomen: Soft, nontender, no organomegaly, bowel sounds present Neuro: No focal deficits, no facial deformity, AO x3, power 5/5 in all limbs Data 11/27/23 05:12 11/27/23 05:12 Other Labs: Radiology Impressions Chest X-Ray 11/26/23 21:49 IMPRESSION: Cardiomegaly with mild central vascular congestion, pulmonary edema, and small pleural effusions, similar compared to multiple prior chest radiographs likely representing underlying CHF/fluid overload. Chest CTA 11/26/23 23:11 IMPRESSION: 1. No evidence of pulmonary embolism. 2. Enlarging mediastinal lymph nodes. 3. Phnno-le-pkzqskge left and zewljazb-ed-ofkkv right pleural effusions with adjacent atelectasis, increased compared to prior study. 4. Worsening pulmonary edema. Laboratory Results WBC 8.60 10^3/uL (3.29-11.43) 11/27/23 05:12 RBC 3.48 10^6/uL (3.85-5.65) L 11/27/23 05:12 Hgb 10.30 g/dL (11.27-16.99) L 11/27/23 05:12 Hct 34.0 % (37-53) L 11/27/23 05:12 MCV 97.7 fl (82-101) 11/27/23 05:12 MCH 29.6 pg (27-33) 11/27/23 05:12 MCHC 30.3 g/dL (30-55) 11/27/23 05:12 RDW 18.2 % (12.1-15.1) H 11/27/23 05:12 Plt Count 228 10^3/cmm (157-399) 11/27/23 05:12 MPV 10.6 fL (7.4-10.4) H 11/27/23 05:12 Neut % (Auto) 66.5 % 11/27/23 05:12 Lymph % (Auto) 21.0 % 11/27/23 05:12 Liberty % (Auto) 6.2 % 11/27/23 05:12 Eos % (Auto) 4.7 % 11/27/23 05:12 Baso % (Auto) 1.4 % 11/27/23 05:12 Neut # (Auto) 5.72 10^3/uL (1.8-7.7) 11/27/23 05:12 Lymph # (Auto) 1.8 10^3/uL (0.8-4.8) 11/27/23 05:12 [place] # (Auto) 0.5 10^3/uL (0.2-0.9) 11/27/23 05:12 Eos # (Auto) 0.4 10^3/uL (0.0-0.8) 11/27/23 05:12 Baso # (Auto) 0.1 10^3/uL (0.0-0.1) 11/27/23 05:12 Nucleated RBC % (auto) 0 % 11/27/23 05:12 Nucleated RBCs # 0.0 /100WBC 11/27/23 05:12 Sodium 138 mmol/L (136-145) 11/27/23 05:12 Potassium 4.1 mmol/L (3.5-5.1) 11/27/23 05:12 Chloride 100 mmol/L (98-107) 11/27/23 05:12 Carbon Dioxide 23 mmol/L (22-29) 11/27/23 05:12 Anion Gap 19.1 (5-19) H 11/27/23 05:12 BUN 20 mg/dL (6-20) 11/27/23 05:12 Creatinine 5.8 mg/dL (0.7-1.2) H* 11/27/23 05:12 GFR Calculation 10.1 mL/min (90-130) L 11/27/23 05:12 Glucose 89 mg/dL (65-115) 11/27/23 05:12 Calculated Osmolality 288 mOsm/kg (285-295) 11/27/23 05:12 Calcium 8.3 mg/dL (8.5-10.5) L 11/27/23 05:12 Total Bilirubin 0.3 mg/dL (0.15-1.2) 11/27/23 05:12 AST 16 U/L (0-40) 11/27/23 05:12 ALT 9 U/L (0-41) 11/27/23 05:12 Alkaline Phosphatase 90 U/L (40-130) 11/27/23 05:12 Ammonia 17 umol/L (16-60) 11/26/23 22:05 Troponin T Baseline 50 ng/L (0-15) H 11/26/23 22:05 Troponin T Hi Sens 6Hr 48.30 ng/L (0-15) H 11/27/23 05:12 Troponin T Hi Sens 6Hr Delta -1.70 ng/L (0-12) L 11/27/23 05:12 NT-Pro-B Natriuret Pep > 78103 pg/mL (0-125) H 11/26/23 22:05 Total Protein 5.9 g/dL (6.6-8.7) L 11/27/23 05:12 Albumin 3.4 g/dL (3.5-5.2) L 11/27/23 05:12 Globulin 2.5 g/dL (1.3-4.6) 11/27/23 05:12 A&P Assessment and plan (1) H/O aortic aneurysm repair: (2) ESRD (end stage renal disease) on dialysis: (3) Hypoxia: (4) Pulmonary edema: (5) Bilateral pleural effusion: (6) Uncontrolled hypertension: Plan 58-year-old male currently on hemodialysis Monday presenting to the emergency room with acutely worsening shortness of breath and elevated blood pressure. Systolic blood pressure 190 initially upon arrival. At the time of this evaluation, blood pressure has improved to 136/69. CT of the chest negative for PE, shows bilateral pleural effusions and pulmonary edema. Nephrology consulted for dialysis, will benefit from fluid removal. Bumex 2 mg IV now in the interim. Patient states he still makes some urine. Typically on Bumex 2 mg p.o. at home. Continue home regimen with amlodipine 10 mg every day, metoprolol 100 mg p.o. twice daily and Imdur 60 mg p.o. daily. Hold hydralazine, may be resumed based on blood pressure trend postdialysis. Supplemental O2 to keep saturation greater than 92%. Recent history of PD peritonitis and fractured PD catheter during attempted removal as noted above. Currently on cefpodoxime at home, will change to ceftriaxone 1 g IV every 24 hours for hospital use. General surgery consulted; patient was scheduled to undergo laparoscopic removal of the catheter fragments on November 28, 2023. Will attempt to complete surgical intervention during current admission. Would need to be volume optimized first. CT of the chest today showing residual soft tissue swelling in the subcutaneous fat and 2 hyperdensities likely correlating with the retained catheter fragments. Complains of discomfort to palpation over anterior abdominal wall. Recent history of C. difficile. He was on outpatient vancomycin which we will continue for hospital use. VTE prophylaxis: heparin 5000 q12h Full code Attestations 2 Medical Necessity Statement*: > 2 midnight admission is anticipated Diagnoses H/O aortic aneurysm repair Z98.890; Z86.79 ESRD (end stage renal disease) on dialysis N18.6; Z99.2 Hypoxia R09.02 Pulmonary edema J81.1 Bilateral pleural effusion J90 Uncontrolled hypertension I10
[2023-11-27] MEDS: cefTRIAXone 1,000 MG in sodium chloride 0.9% (plus) 50 ML 100 MG IV (00:24)
[2023-11-27] MEDS: heparin 5,000 unit/mL INJ 1 mL 5000 UNIT SUBCUT (00:27)
[2023-11-27] MEDS: bumetanide 0.25 mg/mL SDV 10 mL 2 MG IVP (00:40)
--- NOTE | 2023-11-27 01:11 | ECG_ITS ---
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 Measurements Intervals [place] Rate: 69 P: 10 SD: 201 QRS: 32 QRSD: 108 T: -86 QT: 468 QTc: 503 Interpretive Statements SINUS RHYTHM ST DEVIATION AND MODERATE T-WAVE ABNORMALITY, CONSIDER ANTEROLATERAL ISCHEMIA [-0.1+ mV T-WAVE IN V3-V6] ST DEVIATION AND MODERATE T-WAVE ABNORMALITY, CONSIDER INFERIOR ISCHEMIA [-0.1+ mV T-WAVE IN II/aVF] INTERPRETATION BASED ON A DEFAULT AGE OF 40 YEARS Compared to ECG 11/27/2023 01:26:12 No significant changes Electronically Signed On 11-28-2023 22:04:54 CDT by Rah Argueta M.D. [id number]
[2023-11-27] MEDS: levothyroxine 50 mcg Tablet PO (05:06)
[2023-11-27] MEDS: amlodipine 10 mg Tablet PO (05:06)
--- NOTE | 2023-11-27 05:11 | ECG_ITS ---
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 Measurements Intervals [place] Rate: 68 P: 23 MN: 200 QRS: 25 QRSD: 105 T: -86 QT: 447 QTc: 477 Interpretive Statements SINUS RHYTHM POSSIBLE LEFT ATRIAL ENLARGEMENT [-0.1mV P-WAVE IN V1/V2] ST DEVIATION AND MODERATE T-WAVE ABNORMALITY, CONSIDER ANTEROLATERAL ISCHEMIA [-0.1+ mV T-WAVE IN V3-V6] ST DEVIATION AND MODERATE T-WAVE ABNORMALITY, CONSIDER INFERIOR ISCHEMIA [-0.1+ mV T-WAVE IN II/aVF] Compared to ECG 11/26/2023 23:29:50 No significant changes Electronically Signed On 11-28-2023 22:04:34 CDT by Rah Argueta M.D. [email or web address]
[2023-11-27 05:48] LABS: Basophils # 0.1 10^3/uL (0.0-0.1); Basophils % 1.4 %; Eosinophils # 0.4 10^3/uL (0.0-0.8); Eosinophils % 4.7 %; Lymphocytes # 1.8 10^3/uL (0.8-4.8); Mean Corpuscular HGB Conc 30.3 g/dL (30-55); Mean Corpuscular Hemoglobin 29.6 pg (27-33); Mean Corpuscular Volume 97.7 fl (82-101); Mean Platelet Volume 10.6 fL (7.4-10.4); Monocytes # 0.5 10^3/uL (0.2-0.9); Monocytes % 6.2 %; Neutrophils # 5.72 10^3/uL (1.8-7.7); Neutrophils % 66.5 %; Nucleated Red Blood Cells % 0 %; Platelet Count 228 10^3/cmm (157-399); Red Blood Count 3.48 10^6/uL (3.85-5.65); Red Cell Distribution Width 18.2 % (12.1-15.1)
[2023-11-27 06:07] LABS: Alanine Aminotransferase 9 U/L (0-41); Albumin Level 3.4 g/dL (3.5-5.2); Alkaline Phosphatase 90 U/L (40-130); Aspartate Amino Transferase 16 U/L (0-40); Blood Urea Nitrogen 20 mg/dL (6-20); Calcium 8.3 mg/dL (8.5-10.5); Carbon Dioxide 23 mmol/L (22-29); Chloride 100 mmol/L (98-107); Creatinine Clr Calc Pharmacy 14.4885; Globulin 2.5 g/dL (1.3-4.6); Glomerular Filtration Rate 10.1 mL/min (90-130); Glucose 89 mg/dL (65-115); Osmolality Calculated 288 mOsm/kg (285-295); Sodium 138 mmol/L (136-145); Total Bilirubin 0.3 mg/dL (0.15-1.2); Total Protein 5.9 g/dL (6.6-8.7)
[2023-11-27 06:09] LABS: Anion Gap 19.1 (5-19); Potassium 4.1 mmol/L (3.5-5.1)
--- NOTE | 2023-11-27 07:30 | P.CONIM_ITS ---
Providers/Reason For Consult 2 Consulting Physician/Specialty*: irina harding md / telenephrology Reason for Consult*: ESRD care Requesting Physician: Dr Sagrario Servin Attending Physician: Karyna Servin MD Primary Care Provider: Julia De Luna MD History of Present Illness History of Present Illness Celestine Farrell is a 58 year old male who has history of AAA repair in June at [facility] patient had postoperative complications requiring dialysis he was then transition to peritoneal dialysis. recent Peritonitis and converted to HD. Pt has IHD MWF. He presented overnight w/ SOB and HTN. In ER he had a CXR and a CTA c/w pleural effusions, mediastinal LN and CHF. Renal is called for dialysis. Review of Systems 2 Narrative: weak, headache, SOB, nausea, edema. dec abd pain. still urinates. Medications/Allergies Home Medications Medication Instructions Recorded Confirmed Last Taken Type amlodipine 10 mg tablet 10 mg PO QAM 07/17/23 11/27/23 11/26/23 History aspirin 81 mg tablet,delayed 81 mg PO BEDTIME 07/17/23 11/27/23 11/12/23 History release levothyroxine 50 mcg tablet 50 mcg PO QAM 07/17/23 11/27/23 11/26/23 History metoprolol tartrate 100 mg tablet 100 mg PO BID 07/17/23 11/27/23 11/26/23 History atorvastatin 40 mg tablet 40 mg PO BEDTIME 09/25/23 11/27/23 11/25/23 History losartan 100 mg tablet 100 mg PO QAM 09/25/23 11/27/23 11/26/23 History ondansetron HCl 4 mg tablet 4 mg PO Q8H PRN Nausea And Vomiting 09/25/23 11/27/23 Unknown History sevelamer carbonate 800 mg tablet 800 mg PO TID 09/25/23 11/27/23 11/26/23 History vit B,C-folic ac 800 mcg-zinc 12.5 1 tab PO QPM on non dialysis days 09/25/23 11/27/23 11/25/23 History mg-selen-D3 2,000 unit-vit E tablet (RenaPlex-D) isosorbide mononitrate 60 mg 60 mg PO DAILY #30 tabs 09/27/23 11/27/23 11/26/23 Rx tablet,extended release 24 hr acetaminophen 500 mg tablet 1,000 mg PO Q6H PRN Pain 11/13/23 11/27/23 Unknown History bumetanide 2 mg tablet 2 mg PO DAILY 11/13/23 11/27/23 11/26/23 History calcitriol 0.25 mcg capsule 0.25 mcg PO DAILY 11/13/23 11/27/23 11/26/23 History docusate sodium 100 mg capsule 100 mg PO BID 11/13/23 11/27/23 11/13/23 History (Colace) gentamicin 0.1 % topical cream 1 applic topical PRN PRN TO PORT 11/13/23 11/27/23 11/26/23 History hydralazine 25 mg tablet 25 mg PO BID 11/13/23 11/27/23 11/26/23 History pantoprazole 40 mg tablet,delayed 40 mg PO DAILY PRN Acid Reflux 11/13/23 11/27/23 Unknown History release cefpodoxime 200 mg tablet 200 mg PO BID #28 tabs 11/16/23 11/27/23 11/26/23 Rx Allergies Allergy/AdvReac Type Severity Reaction Status Date / Time adhesive Allergy ALGY-Rash Verified 11/26/23 21:45 Current Medications Generic Name Dose Route Start Last Admin Trade Name Freq PRN Reason Stop Dose Admin Amlodipine Besylate 10 mg 11/27/23 06:00 11/27/23 05:06 Amlodipine 10 Mg Tablet PO 10 mg QAM TEX Administration Heparin Sodium (Porcine) 5,000 unit 11/27/23 00:15 11/27/23 00:27 Heparin 5,000 Unit/Ml Inj 1 Ml SUBCUT 5,000 unit Q12H TEX Administration Ceftriaxone Sodium 1,000 mg/ 50 mls @ 100 mls/hr 11/27/23 00:15 11/27/23 01:10 Sodium Chloride IV Infused Q24H TEX Infusion Protocol Levothyroxine Sodium 50 mcg 11/27/23 06:00 11/27/23 05:06 Levothyroxine 50 Mcg Tablet PO 50 mcg QAM TEX Administration PFSH Acute 2 PFSH: Medical History SBP (spontaneous bacterial peritonitis) Acute bacterial peritonitis Hypoxia End-stage renal disease on hemodialysis Congestive heart failure Hypothyroidism Hypertension Surgical History S/P AAA repair H/O aortic aneurysm repair Social History Smoking and tobacco/nicotine status: former use of tobacco/nicotine Second hand smoke exposure: No Alcohol intake: never Substance/Drug Use: never Vitals/I&O/Wt Last Vital Signs Temp 97.7 F 11/27/23 04:00 Pulse 66 11/27/23 05:21 Resp 19 H 11/27/23 04:00 BP 136/69 11/27/23 04:00 Pulse Ox 92 11/27/23 04:00 O2 Del Method Nasal Cannula 11/27/23 04:00 O2 Flow Rate 7 11/27/23 01:10 11/26/23 11/27/23 11/27/23 22:59 06:59 14:59 Intake Total 50 / 50 Balance 50 / 50 Weight last 48 hrs Weight 87.6 kg Weight 84.141 kg Weight 83.915 kg Physical Exam 2 Narrative: The patient looks older than his stated age. Patient is lying in bed using nasal cannula O2. Vital signs blood pressure has improved. Patient is saturating okay with nasal cannula O2. HEENT normocephalic atraumatic. Neck is supple Lungs have wheezes bilaterally. Heart regular with systolic murmur positive S1-S2 Abdomen is soft positive bowel sounds. Tenckhoff catheter removed. Extremities 1+ edema. Neuro awake alert oriented x 3. Patient has an IJ permacath. Patient was seen and examined using A/V equipment as a telehealth visit. The nurse examined the patient. Data 11/27/23 05:12 11/27/23 05:12 Micro: Microbiology 11/27/23 05:12 Blood Culture - Preliminary Blood SPECIMEN COLLECTED A&P Assessment and plan (1) ESRD (end stage renal disease) on dialysis: 58-year-old gentleman ESRD history of COPD and CHF. The patient was recently converted from peritoneal dialysis to hemodialysis due to peritonitis. Patient should still be on antibiotics. Patient now comes in with volume overload and shortness of breath with hypertension. We will dialyze the patient today to help with fluid removal. I will decrease some of his blood pressure pills to allow blood pressure room for fluid removal on dialysis. Hemoglobin is acceptable. Monitor phosphorus. Patient will need to discuss with the dietitian and appropriate renal diet so that he does not run into issues with his 3-day weekend on hemodialysis. Plan As above. Consult Attestations 2 Medical Necessity Statement: ESRD, CHF, COPD, hypertension volume overload and shortness of breath. Time Spent in Patient Care: Greater than 35 minutes (>than 50% of time spent in counselling and/or direct pt care on unit) . Coding Level of Care Code Acute Code for Chg Fwd Diagnoses ESRD (end stage renal disease) on dialysis N18.6; Z99.2
[2023-11-27] MEDS: vancomycin 125 mg Capsule PO ×3 (08:24→20:24)
--- NOTE | 2023-11-27 08:56 | P.CONIM_ITS ---
Providers/Reason For Consult 2 Consulting Physician/Specialty*: General surgery Reason for Consult*: Follow-up of fracture peritoneal dialysis catheter Attending Physician: Felice Rooney MD Primary Care Provider: Julia De Luna MD History of Present Illness History of Present Illness Celestine Farrell is a 58 year old male who is known to me recent clinic visit where I evaluate him for a fracture peritoneal dialysis catheter. Patient was supposed to go to the OR tomorrow for attempted removal but he has been feeling short of breath and therefore presented to the hospital yesterday. Patient will be dialyzed but I was asked to evaluate him to decide if he can have surgery tomorrow Review of Systems 2 General: Reports: 10 or more systems reviewed and unremarkable except in HPI and below Medications/Allergies Home Medications Medication Instructions Recorded Confirmed Last Taken Type amlodipine 10 mg tablet 10 mg PO QAM 07/17/23 11/27/23 11/26/23 History aspirin 81 mg tablet,delayed 81 mg PO BEDTIME 07/17/23 11/27/23 11/12/23 History release levothyroxine 50 mcg tablet 50 mcg PO QAM 07/17/23 11/27/23 11/26/23 History metoprolol tartrate 100 mg tablet 100 mg PO BID 07/17/23 11/27/23 11/26/23 History atorvastatin 40 mg tablet 40 mg PO BEDTIME 09/25/23 11/27/23 11/25/23 History losartan 100 mg tablet 100 mg PO QAM 09/25/23 11/27/23 11/26/23 History ondansetron HCl 4 mg tablet 4 mg PO Q8H PRN Nausea And Vomiting 09/25/23 11/27/23 Unknown History sevelamer carbonate 800 mg tablet 800 mg PO TID 09/25/23 11/27/23 11/26/23 History vit B,C-folic ac 800 mcg-zinc 12.5 1 tab PO QPM on non dialysis days 09/25/23 11/27/23 11/25/23 History mg-selen-D3 2,000 unit-vit E tablet (RenaPlex-D) isosorbide mononitrate 60 mg 60 mg PO DAILY #30 tabs 09/27/23 11/27/23 11/26/23 Rx tablet,extended release 24 hr acetaminophen 500 mg tablet 1,000 mg PO Q6H PRN Pain 11/13/23 11/27/23 Unknown History bumetanide 2 mg tablet 2 mg PO DAILY 11/13/23 11/27/23 11/26/23 History calcitriol 0.25 mcg capsule 0.25 mcg PO DAILY 11/13/23 11/27/23 11/26/23 History docusate sodium 100 mg capsule 100 mg PO BID 11/13/23 11/27/23 11/13/23 History (Colace) gentamicin 0.1 % topical cream 1 applic topical PRN PRN TO PORT 11/13/23 11/27/23 11/26/23 History hydralazine 25 mg tablet 25 mg PO BID 11/13/23 11/27/23 11/26/23 History pantoprazole 40 mg tablet,delayed 40 mg PO DAILY PRN Acid Reflux 11/13/23 11/27/23 Unknown History release cefpodoxime 200 mg tablet 200 mg PO BID #28 tabs 11/16/23 11/27/23 11/26/23 Rx Allergies Allergy/AdvReac Type Severity Reaction Status Date / Time adhesive Allergy ALGY-Rash Verified 11/26/23 21:45 Current Medications Generic Name Dose Route Start Last Admin Trade Name Freq PRN Reason Stop Dose Admin Amlodipine Besylate 10 mg 11/27/23 06:00 11/27/23 05:06 Amlodipine 10 Mg Tablet PO 10 mg QAM TEX Administration Heparin Sodium (Porcine) 5,000 unit 11/27/23 00:15 11/27/23 00:27 Heparin 5,000 Unit/Ml Inj 1 Ml SUBCUT 5,000 unit Q12H TEX Administration Ceftriaxone Sodium 1,000 mg/ 50 mls @ 100 mls/hr 11/27/23 00:15 11/27/23 01:10 Sodium Chloride IV Infused Q24H TEX Infusion Protocol Isosorbide Mononitrate 60 mg 11/27/23 09:00 11/27/23 08:05 Isosorbide Mononitrate Er 60 Mg Tablet PO Not Given DAILY TEX Levothyroxine Sodium 50 mcg 11/27/23 06:00 11/27/23 05:06 Levothyroxine 50 Mcg Tablet PO 50 mcg QAM TEX Administration Metoprolol Tartrate 50 mg 11/27/23 09:00 11/27/23 08:05 Metoprolol Tartrate 50 Mg Tablet PO Not Given BID TEX Sevelamer Carbonate 800 mg 11/27/23 09:00 11/27/23 08:05 Sevelamer 800 Mg Tablet PO Not Given TID TEX Vancomycin HCl 125 mg 11/27/23 08:15 11/27/23 08:24 Vancomycin 125 Mg Capsule PO 125 mg Q6H TEX Administration PFSH Acute 2 PFSH: Medical History SBP (spontaneous bacterial peritonitis) Acute bacterial peritonitis Hypoxia End-stage renal disease on hemodialysis Congestive heart failure Hypothyroidism Hypertension Surgical History S/P AAA repair H/O aortic aneurysm repair Social History Smoking and tobacco/nicotine status: former use of tobacco/nicotine Second hand smoke exposure: No Alcohol intake: never Substance/Drug Use: never Vitals/I&O/Wt Last Vital Signs Temp 99.2 F 11/27/23 08:00 Pulse 70 11/27/23 08:00 Resp 19 H 11/27/23 08:00 BP 151/90 11/27/23 08:00 Pulse Ox 94 11/27/23 08:00 O2 Del Method Nasal Cannula 11/27/23 08:00 O2 Flow Rate 7 11/27/23 01:10 11/26/23 11/27/23 11/27/23 22:59 06:59 14:59 Intake Total 50 / 50 Balance 50 / 50 Weight last 48 hrs Weight 193 lb 2 oz Weight 185 lb 8 oz Weight 185 lb Physical Exam 2 Chest: OTHER: Left upper chest hematoma still present, no evidence of worsening GI: OTHER: Abdomen soft nontender nondistended Data 11/27/23 05:12 11/27/23 05:12 Micro: Microbiology 11/27/23 05:12 Blood Culture - Preliminary Blood SPECIMEN COLLECTED A&P Assessment and plan (1) Peritoneal dialysis catheter dysfunction: Plan After complete history physical examination and review of all available clinical data the following is my assessment. This is a known patient to my service who was planned for excision of fracture peritoneal dialysis catheter tomorrow. From the general surgical standpoint we will be able to proceed with surgery tomorrow once patient is dialyzed and stable from the medical standpoint for this. Patient has been holding his anticoagulation, please continue to hold with in order for us to proceed with surgery. All risk and benefits of the procedure have been discussed with the patient and they are documented in my preoperative note. -Plan is for OR tomorrow. Coding Level of Care Code Acute Code for Chg Fwd Diagnoses Peritoneal dialysis catheter dysfunction T85.611A
[2023-11-27 09:49] LABS: Hepatitis B Surface AB < 3.5 (11.5-1000); Hepatitis B Surface Antigen Non-Reactive (Nonreactive); Hepatitis C Virus Antibody Non-Reactive (Nonreactive)
[2023-11-27] MEDS: sevelamer 800 mg Tablet PO (14:38)
--- NOTE | 2023-11-27 14:39 | P.PN_ITS ---
Subjective 2 Subjective: patient was seen this morning, by the dialysis suite, receiving dialysis, complaining of shortness of breath, on 2 L, patient's is at bedside, reports of bilateral extremity edema, also complains of abdominal pain, no fevers, no chills, Vitals/I&O/Wt Last Vital Signs Temp 98.1 F 11/27/23 12:00 Pulse 67 11/27/23 12:00 Resp 20 H 11/27/23 12:00 BP 159/94 11/27/23 12:00 Pulse Ox 91 11/27/23 12:00 O2 Del Method Nasal Cannula 11/27/23 12:00 O2 Flow Rate 7 11/27/23 01:10 11/26/23 11/27/23 11/27/23 22:59 06:59 14:59 Intake Total 50 / 50 240 / 240 Balance 50 / 50 240 / 240 Weight last 48 hrs Weight 87.6 kg Weight 84.141 kg Weight 83.915 kg Physical Exam 2 Const: COMMON NORMALS: no acute distress and patient oriented x3 Resp: COMMON NORMALS: normal respiratory effort, No retractions and No use of accessory muscles AUSCULTATION: crackles Cardio: COMMON NORMALS: regular rate, regular rhythm, S1 normal heart sound present and S2 normal heart sound present RATE: regular rate RHYTHM: r egular rhythm HEART SOUNDS: S1 normal heart sound present and S2 normal heart sound present GI: COMMON NORMALS: Normal to inspection, nondistended, normoactive bowel sounds present and non-tender Extremity: COMMON NORMALS: no calf tenderness and no pedal edema Neuro: COMMON NORMALS: patient oriented x3 Psych: COMMON NORMALS: mental status grossly normal Skin: NARRATIVE SKIN EXAM: 2+ edema Data 11/27/23 05:12 11/27/23 05:12 Micro: Microbiology 11/27/23 05:12 Blood Culture - Preliminary Blood SPECIMEN COLLECTED A&P Assessment and plan (1) H/O aortic aneurysm repair: (2) ESRD (end stage renal disease) on dialysis: (3) Hypoxia: (4) Pulmonary edema: (5) Bilateral pleural effusion: (6) Uncontrolled hypertension: Plan 58-year-old male currently on hemodialysis Monday presenting to the emergency room with acutely worsening shortness of breath and elevated blood pressure. Systolic blood pressure 190 initially upon arrival. At the time of this evaluation, blood pressure has improved to 136/69. CHF exacerbation -fluid overload, 2+ pitting edema, crackles, on nasal cannula -CT of the chest negative for PE, shows bilateral pleural effusions and pulmonary edema. -Nephrology consulted for dialysis, receiving inpatient dialysis -Bumex 2 mg IV now in the interim. Patient states he still makes some urine. Typically on Bumex 2 mg p.o. at home. -home regimen with amlodipine 10 mg every day, metoprolol 100 mg p.o. twice daily and Imdur 60 mg p.o. daily. Hold hydralazine, may be resumed based on blood pressure trend postdialysis. Supplemental O2 to keep saturation greater than 92%. Peritonitis -Recent history of PD peritonitis and fractured PD catheter during attempted removal as noted above. Currently on cefpodoxime at home, will change to ceftriaxone 1 g IV every 24 hours for hospital use. General surgery consulted; patient was scheduled to undergo laparoscopic removal of the catheter fragments on November 28, 2023. Surgical service has been consulted would need to be volume optimized first. CT of the chest today showing residual soft tissue swelling in the subcutaneous fat and 2 hyperdensities likely correlating with the retained catheter fragments. Complains of discomfort to palpation over anterior abdominal wall. Recent history of C. difficile He was on outpatient vancomycin which we will continue for hospital use. VTE prophylaxis: heparin 5000 q12h Full code Attestations 2 Medical Necessity Statement*: Patient requires hospitalization for fluid overload, CHF exacerbation, requiring inpatient dialysis Diagnoses H/O aortic aneurysm repair Z98.890; Z86.79 ESRD (end stage renal disease) on dialysis N18.6; Z99.2 Hypoxia R09.02 Pulmonary edema J81.1 Bilateral pleural effusion J90 Uncontrolled hypertension I10
[2023-11-27] MEDS: metoprolol tartrate 50 mg Tablet PO (17:34)
[2023-11-27] MEDS: atorvastatin 40 mg Tablet PO (20:24)
[2023-11-28] VITALS (18 sets, daily range): BP systolic 125–173; BP diastolic 65–96; PULSE 60–78; RESP 16–18; TEMP 36.2–37.2; O2SAT 87–98
[2023-11-28] MEDS: cefTRIAXone 1,000 MG in sodium chloride 0.9% (plus) 50 ML 100 MG IV (00:03)
--- NOTE | 2023-11-28 00:21 | PC.NURSE ---
Patient 0015 dose of heparin held, per Dr Dillard consultation notes for surgery.
[2023-11-28] MEDS: amlodipine 10 mg Tablet PO (05:42)
[2023-11-28] MEDS: levothyroxine 50 mcg Tablet PO (05:42)
[2023-11-28 06:35] LABS: Basophils # 0.1 10^3/uL (0.0-0.1); Basophils % 1.7 %; Eosinophils # 0.4 10^3/uL (0.0-0.8); Eosinophils % 4.8 %; Hematocrit 37.7 % (37-53); Lymphocytes # 1.4 10^3/uL (0.8-4.8); Lymphocytes % 17.5 %; Mean Corpuscular HGB Conc 30.5 g/dL (30-55); Mean Corpuscular Hemoglobin 29.2 pg (27-33); Mean Corpuscular Volume 95.7 fl (82-101); Mean Platelet Volume 10.3 fL (7.4-10.4); Monocytes # 0.5 10^3/uL (0.2-0.9); Monocytes % 6.3 %; Neutrophils # 5.41 10^3/uL (1.8-7.7); Neutrophils % 69.6 %; Nucleated Red Blood Cells % 0 %; Platelet Count 256 10^3/cmm (157-399); Red Blood Count 3.94 10^6/uL (3.85-5.65); Red Cell Distribution Width 18.2 % (12.1-15.1); White Blood Count 7.77 10^3/uL (3.29-11.43)
[2023-11-28 06:53] LABS: Alanine Aminotransferase 11 U/L (0-41); Alkaline Phosphatase 105 U/L (40-130); Aspartate Amino Transferase 21 U/L (0-40); Blood Urea Nitrogen 16 mg/dL (6-20); Calcium 9.2 mg/dL (8.5-10.5); Carbon Dioxide 27 mmol/L (22-29); Chloride 101 mmol/L (98-107); Creatinine Clr Calc Pharmacy 17.1289; Globulin 3.1 g/dL (1.3-4.6); Glomerular Filtration Rate 12.2 mL/min (90-130); Glucose 102 mg/dL (65-115); Osmolality Calculated 297 mOsm/kg (285-295); Sodium 143 mmol/L (136-145); Total Bilirubin 0.4 mg/dL (0.15-1.2); Total Protein 7.1 g/dL (6.6-8.7)
[2023-11-28 06:54] LABS: Anion Gap 19.3 (5-19); Potassium 4.3 mmol/L (3.5-5.1)
--- NOTE | 2023-11-28 06:57 | W.PM.OPSFHP ---
Same Day Surgery H&P Indication for Procedure/HPI DATE OF PROCEDURE: November 28, 2023 CHIEF COMPLAINT/INDICATIONFOR SURGICAL PROCEDURE: Fractured peritoneal dialysis catheter PREOP DIAGNOSIS: Fractured peritonel dialysis catheter PLANNED PROCEDURE: Operation Date: 11/28/23 14:00 Proposed Procedures p Foreign Body Removal Chest Wall(Not Applicable) - Celestine Dillard MD s Peritoneal Catheter Removal(Not Applicable) - Celestine Dillard MD s Laparoscopy Diagnostic(Not Applicable) - Celestine Dillard MD Medications/Allergies* Home Medications Medication Instructions Recorded Confirmed Type amlodipine 10 mg tablet 10 mg PO QAM 07/17/23 11/27/23 History aspirin 81 mg tablet,delayed 81 mg PO BEDTIME 07/17/23 11/27/23 History release levothyroxine 50 mcg tablet 50 mcg PO QAM 07/17/23 11/27/23 History metoprolol tartrate 100 mg tablet 100 mg PO BID 07/17/23 11/27/23 History atorvastatin 40 mg tablet 40 mg PO BEDTIME 09/25/23 11/27/23 History losartan 100 mg tablet 100 mg PO QAM 09/25/23 11/27/23 History ondansetron HCl 4 mg tablet 4 mg PO Q8H PRN Nausea And Vomiting 09/25/23 11/27/23 History sevelamer carbonate 800 mg tablet 800 mg PO TIDWM 09/25/23 11/27/23 History vit B,C-folic ac 800 mcg-zinc 12.5 1 tab PO QPM on non dialysis days 09/25/23 11/27/23 History mg-selen-D3 2,000 unit-vit E tablet (RenaPlex-D) acetaminophen 500 mg tablet 1,000 mg PO Q6H PRN Pain 11/13/23 11/27/23 History bumetanide 2 mg tablet 2 mg PO DAILY 11/13/23 11/27/23 History calcitriol 0.25 mcg capsule 0.25 mcg PO DAILY 11/13/23 11/27/23 History docusate sodium 100 mg capsule 100 mg PO BID 11/13/23 11/27/23 History (Colace) gentamicin 0.1 % topical cream 1 applic topical PRN PRN TO PORT 11/13/23 11/27/23 History hydralazine 25 mg tablet 25 mg PO BID 11/13/23 11/27/23 History pantoprazole 40 mg tablet,delayed 40 mg PO DAILY PRN Acid Reflux 11/13/23 11/27/23 History release Allergies/Adverse Reactions Allergy/AdvReac Type Severity Reaction Status Date / Time adhesive Allergy ALGY-Rash Verified 11/26/23 21:45 Current Medications: Generic Name Dose Route Start Last Admin Trade Name Freq PRN Reason Stop Dose Admin Amlodipine Besylate 10 mg 11/27/23 06:00 11/28/23 05:42 Amlodipine 10 Mg Tablet PO 10 mg QAM TEX Administration Atorvastatin Calcium 40 mg 11/27/23 21:00 11/27/23 20:24 Atorvastatin 40 Mg Tablet PO 40 mg BEDTIME TEX Administration Heparin Sodium (Porcine) 5,000 unit 11/27/23 00:15 11/28/23 00:21 Heparin 5,000 Unit/Ml Inj 1 Ml SUBCUT Not Given Q12H TEX Ceftriaxone Sodium 1,000 mg/ 50 mls @ 100 mls/hr 11/27/23 00:15 11/28/23 00:33 Sodium Chloride IV Infused Q24H [facility] Infusion Protocol Isosorbide Mononitrate 60 mg 11/27/23 09:00 11/27/23 08:05 Isosorbide Mononitrate Er 60 Mg Tablet PO Not Given DAILY TEX Levothyroxine Sodium 50 mcg 11/27/23 06:00 11/28/23 05:42 Levothyroxine 50 Mcg Tablet PO 50 mcg QAM TEX Administration Metoprolol Tartrate 50 mg 11/27/23 09:00 11/27/23 17:34 Metoprolol Tartrate 50 Mg Tablet PO 50 mg BID TEX Administration Sevelamer Carbonate 800 mg 11/27/23 09:00 11/27/23 20:42 Sevelamer 800 Mg Tablet PO Not Given TID TEX Vancomycin HCl 125 mg 11/27/23 08:15 11/27/23 20:24 Vancomycin 125 Mg Capsule PO 125 mg Q6H TEX Administration Pertinent History/Comorbid Conditions* Medical History (Updated 11/27/23 @ 07:51 by Karyna Servin MD) SBP (spontaneous bacterial peritonitis) Acute bacterial peritonitis Hypoxia End-stage renal disease on hemodialysis Congestive heart failure Hypothyroidism Hypertension Surgical History (Updated 11/17/23 @ 00:02 by NUSRAT John) S/P AAA repair H/O aortic aneurysm repair Social History Smoking and tobacco/nicotine status: former use of tobacco/nicotine Second hand smoke exposure: No Alcohol intake: never Substance/Drug Use: never Pertinent Exam Findings alert, oriented x 3, clear to auscultation bilaterally and procedure specific exam findings Recommendations Surgery/Procedure today Coding Level of Care Code Acute Code for Chg [place]
--- NOTE | 2023-11-28 08:33 | PM.PN ---
Subjective Subjective: The patient was seen and examined. He is anxious about surgery. He has an abdominal wall hernia. He states that his PD catheter was removed from his left upper quadrant. He has a bandage on it. He has some nausea. He has no shortness of breath or chest pain headaches itching or cramps. Medications: Reviewed: Yes Medication Review Details: Current Medications Acetaminophen (Acetaminophen 325 Mg Tablet) 650 mg PO Q6H PRN PRN Reason: Mild/Mod Pain Or Temp >/= 101 Amlodipine Besylate (Amlodipine 10 Mg Tablet) 10 mg PO QAM [facility] Last Admin: 11/28/23 05:42 Dose: 10 mg Atorvastatin Calcium (Atorvastatin 40 Mg Tablet) 40 mg PO BEDTIME [facility] Last Admin: 11/27/23 20:24 Dose: 40 mg Heparin Sodium (Porcine) (Heparin 5,000 Unit/Ml Inj 1 Ml) 5,000 unit SUBCUT Q12H [facility] Last Admin: 11/28/23 00:21 Dose: Not Given Ceftriaxone Sodium 1,000 mg/ (Sodium Chloride) 50 mls @ 100 mls/hr IV Q24H [facility]; Protocol Last Infusion: 11/28/23 00:33 Dose: Infused Isosorbide Mononitrate (Isosorbide Mononitrate Er 60 Mg Tablet) 60 mg PO DAILY [facility] Last Admin: 11/27/23 08:05 Dose: Not Given Levothyroxine Sodium (Levothyroxine 50 Mcg Tablet) 50 mcg PO QAM [facility] Last Admin: 11/28/23 05:42 Dose: 50 mcg Metoprolol Tartrate (Metoprolol Tartrate 50 Mg Tablet) 50 mg PO BID [facility] Last Admin: 11/27/23 17:34 Dose: 50 mg Morphine Sulfate (Morphine 4 Mg/Ml Sdv 1 Ml) 2 mg IVP Q6H PRN PRN Reason: SEVERE PAIN Ondansetron HCl (Ondansetron 2 Mg/Ml Sdv 2 Ml) 4 mg IVP Q8H PRN PRN Reason: vomiting, or N/V if npo Pantoprazole Sodium (Pantoprazole Dr 40 Mg Tablet) 40 mg PO DAILY PRN PRN Reason: Acid Reflux Sevelamer Carbonate (Sevelamer 800 Mg Tablet) 800 mg PO TID [facility] Last Admin: 11/27/23 20:42 Dose: Not Given Vancomycin HCl (Vancomycin 125 Mg Capsule) 125 mg PO Q6H [facility] Last Admin: 11/27/23 20:24 Dose: 125 mg Vitals/I&O/Wt Last Vital Signs Temp 97.5 F L 11/28/23 08:20 Pulse 78 11/28/23 08:20 Resp 18 11/28/23 08:20 BP 173/96 11/28/23 08:20 Pulse Ox 92 11/28/23 08:20 O2 Del Method Room Air 11/28/23 08:20 O2 Flow Rate 6 11/28/23 08:00 11/27/23 11/28/23 11/28/23 22:59 06:59 14:59 Intake Total 980 / 1220 50 / 1270 Output Total 3205 / 3205 Balance -2224 / 50 / -1935 Weight last 48 hrs Weight 83.915 kg Weight 81.3 kg Weight 87.6 kg Weight 84.141 kg Weight 83.915 kg Physical Exam Narrative: The patient is comfortable in bed. Patient is lying in bed using nasal cannula O2. Vital signs noted. Patient is saturating okay with nasal cannula O2. HEENT normocephalic atraumatic. Neck is supple Lungs have crackles bilaterally. Heart regular with systolic murmur positive S1-S2 Abdomen is soft positive bowel sounds. Positive left upper quadrant bandage where Tenckhoff catheter wants. Positive periumbilical hernia. Extremities 1+ edema. Neuro awake alert oriented x 3. Patient has an IJ permacath. Patient was seen and examined using A/V equipment as a telehealth visit. The nurse examined the patient. Data 11/28/23 06:23 11/28/23 06:23 Micro: Microbiology 11/27/23 05:12 Blood Culture - Preliminary Blood NEGATIVE TO DATE A&P Assessment and plan (1) ESRD (end stage renal disease) on dialysis: 58-year-old gentleman ESRD history of COPD and CHF. The patient was recently converted from peritoneal dialysis to hemodialysis due to peritonitis. The Patient remains on antibiotics. He is status post dialysis yesterday. Will give diuretics today and repeat dialysis tomorrow morning. Monitor blood pressure today may need to increase some of his medications. -for removal of parts of tenkoff catheter Hemoglobin is acceptable. Monitor phosphorus. Patient will need to discuss with the dietitian and appropriate renal diet so that he does not run into issues with his 3-day weekend on hemodialysis. Plan As above. Attestations Medical Necessity Statement*: htn, esrd Time Spent in Patient Care: 16 - 35 minutes (>than 50% of time spent in counselling and/or direct pt care on unit). Coding Level of Care Code Acute Code for Chg Fwd Diagnoses ESRD (end stage renal disease) on dialysis N18.6; Z99.2
[2023-11-28] MEDS: isosorbide mononitrate ER 60 mg Tablet PO (08:38)
[2023-11-28] MEDS: metoprolol tartrate 50 mg Tablet PO ×2 (08:38→17:42)
[2023-11-28] MEDS: vancomycin 125 mg Capsule PO (08:38)
--- NOTE | 2023-11-28 09:01 | PC.NURSE ---
pt now refusing tele, says he is allergic to adhesive and the tabs are making him itchy. Tele removed at pt's request. Pt also refusing Renvela this morning, says according to his dialysis nurse he is supposed to take it with food and since he is NPO, he can't take it. Dr. Rooney notified.
--- NOTE | 2023-11-28 09:06 | PC.CHAP ---
Pastoral Care Encounter/Spiritual Assessment Type of Contact [] Declined horticultural nursery assistant visit [] Patient/Family/Request visit [] Outpatient visit [] Follow-up visit [] Physician referral [] Code/Alert [] Routine visit [] Staff referral [] Actively dying [] Patient sleeping [] Family support [] [] Out of room [] Palliative care [] [] Receiving care in room [] Pre-surgical visit [] Trauma [] Long length of stay [] ICU visit [x] Other:Contact precautions. No visit. Relational/Emotional Strength [] Patient feels connected with others/family/visitors/staff [] Distress [] Loneliness/isolation [] Abandonment Spirituality of Patient [] Person of Camryn [] Attends Voodoo of their Camryn [] Believes in Prayer [] Reads Bible or Lutheran materials [] There are Spiritual issues to be addressed [employer] Travel Counselor Interventions [] Prayer [] Active listening [] Non-anxious presence [] Spiritual/emotional support [] Crisis/trauma care [] Spiritual counseling [] Bereavement support [] Provided bereavement packet [] Provided Bible/devotional materials [] Provided toy/stuffed animal, coloring book to patient or family member [] Provided Communion [] Anointing/[place] [] Salvation [] Completed spiritual assessment [] Other: Impact on Illness or Injury [] Angry [] Fearful [] Anxious [] Often cries [] Exhaustion [] Unable to work [] Unable to attend sabianist [] Unable to walk/stand [] Unable to read [] Unable to drive [] Unable to eat/drink [] Unable to sleep [] Unable to be with family [] Patient intubated [] Other: Summary Time spent with patient
[2023-11-28] MEDS: LORazepam 2 mg/mL INJ 1 mL 0.5 MG IVP (09:38)
[2023-11-28] MEDS: sodium chloride 0.9% 1,000 ML 30 ML IV (11:39)
--- NOTE | 2023-11-28 11:57 | P.ANESASSM_ITS ---
Pre-Anesthetic Assessment Height/Weight: Height 1.73 m Weight 83.915 kg Temp Pulse Resp BP Pulse Ox O2 Del Method O2 Flow Rate 97.5 F L 78 18 173/96 92 Room Air 6 11/28/23 08:20 11/28/23 08:20 11/28/23 08:20 11/28/23 08:20 11/28/23 08:20 11/28/23 08:20 11/28/23 08:00 Preop Diagnosis: Fractured peritonel dialysis catheter Operation Date: 11/28/23 12:45 Proposed Procedures p Foreign Body Removal Chest Wall(Not Applicable) - Celestine Dlilard MD s Peritoneal Catheter Removal(Not Applicable) - Celestine Dillard MD s Laparoscopy Diagnostic(Not Applicable) - Celestine Dillard MD Familial anesthetic complications: none Was Beta Maddy taken within 24 hours: Yes Was Clonidine taken within 24 hours: N/A Last intake: Intake Last Liquid Date 11/27/23 Last Liquid Time 11:00 Last Solid Date 11/27/23 Last Solid Time 20:00 Social No alcohol and No tobacco (h/o smoking) Exam alert, oriented x 3 and regular rate & rhythm Airway Submandibular: within normal limits Cervical ROM: within normal limits Mallampati: Class II Dentition: false Pulmonary Chronic Obstructive Pulmonary Disease CV/HEM Hypertension and Peripheral Vascular Disease AAA s/p repair CONCLUSIONS LV systolic function is normal with EF of 55 to 60% Grade 1 diastolic dysfunction. Mild tricuspid regurgitation No comparison studies are available. Selwyn Fisher MD (Electronically Signed) Final Date: 18 July 2023 Chronic Renal Failure Dialysis, M-W-F Metabolic Thyroid Disease Anesthetic Plan ASA status: 3 Anesthesia: General Medications/Allergies Home Medications Medication Instructions Recorded Confirmed Last Taken Type amlodipine 10 mg tablet 10 mg PO QAM 07/17/23 11/27/23 11/26/23 History aspirin 81 mg tablet,delayed 81 mg PO BEDTIME 07/17/23 11/27/23 11/12/23 History release levothyroxine 50 mcg tablet 50 mcg PO QAM 07/17/23 11/27/23 11/26/23 History metoprolol tartrate 100 mg tablet 100 mg PO BID 07/17/23 11/27/23 11/26/23 History atorvastatin 40 mg tablet 40 mg PO BEDTIME 09/25/23 11/27/2324 History losartan 100 mg tablet 100 mg PO QAM 09/25/23 11/27/23 11/26/23 History ondansetron HCl 4 mg tablet 4 mg PO Q8H PRN Nausea And Vomiting 09/25/23 11/27/23 Unknown History sevelamer carbonate 800 mg tablet 800 mg PO TIDWM 09/25/23 11/27/23 11/26/23 History vit B,C-folic ac 800 mcg-zinc 12.5 1 tab PO QPM on non dialysis days 09/25/23 11/27/23 11/25/23 History mg-selen-D3 2,000 unit-vit E tablet (RenaPlex-D) isosorbide mononitrate 60 mg 60 mg PO DAILY #30 tabs 09/27/23 11/27/23 11/26/23 Rx tablet,extended release 24 hr acetaminophen 500 mg tablet 1,000 mg PO Q6H PRN Pain 11/13/23 11/27/23 Unknown History bumetanide 2 mg tablet 2 mg PO DAILY 11/13/23 11/27/23 11/26/23 History calcitriol 0.25 mcg capsule 0.25 mcg PO DAILY 11/13/23 11/27/23 11/26/23 History docusate sodium 100 mg capsule 100 mg PO BID 11/13/23 11/27/23 11/13/23 History (Colace) gentamicin 0.1 % topical cream 1 applic topical PRN PRN TO PORT 11/13/23 11/27/23 11/26/23 History hydralazine 25 mg tablet 25 mg PO BID 11/13/23 11/27/23 11/26/23 History pantoprazole 40 mg tablet,delayed 40 mg PO DAILY PRN Acid Reflux 11/13/23 11/27/23 Unknown History release cefpodoxime 200 mg tablet 200 mg PO BID #28 tabs 11/16/23 11/27/23 11/26/23 Rx Allergies Allergy/AdvReac Type Severity Reaction Status Date / Time adhesive Allergy ALGY-Rash Verified 11/26/23 21:45 Current Medications Generic Name Dose Route Start Last Admin Trade Name Freq PRN Reason Stop Dose Admin Amlodipine Besylate 10 mg 11/27/23 06:00 11/28/23 05:42 Amlodipine 10 Mg Tablet PO 10 mg QAM TEX Administration Atorvastatin Calcium 40 mg 11/27/23 21:00 11/27/23 20:24 Atorvastatin 40 Mg Tablet PO 40 mg BEDTIME TEX Administration Heparin Sodium (Porcine) 5,000 unit 11/27/23 00:15 11/28/23 00:21 Heparin 5,000 Unit/Ml Inj 1 Ml SUBCUT Not Given Q12H TEX Ceftriaxone Sodium 1,000 mg/ 50 mls @ 100 mls/hr 11/27/23 00:15 11/28/23 00:33 Sodium Chloride IV Infused Q24H TEX Infusion Protocol Sodium Chloride 1,000 mls @ 30 mls/hr 11/28/23 11:30 11/28/23 11:39 Sodium Chloride 0.9% IV 11/29/23 11:29 30 mls/hr .Q24H TEX Administration Isosorbide Mononitrate 60 mg 11/27/23 09:00 11/28/23 08:38 Isosorbide Mononitrate Er 60 Mg Tablet PO 60 mg DAILY TEX Administration Levothyroxine Sodium 50 mcg 11/27/23 06:00 11/28/23 05:42 Levothyroxine 50 Mcg Tablet PO 50 mcg QAM TEX Administration Lorazepam 0.5 mg 11/28/23 09:17 11/28/23 09:38 Lorazepam 2 Mg/Ml Inj 1 Ml IVP 0.5 mg Q8H PRN Administration ANXIETY Metoprolol Tartrate 50 mg 11/27/23 09:00 11/28/23 08:38 Metoprolol Tartrate 50 Mg Tablet PO 50 mg BID TEX Administration Sevelamer Carbonate 800 mg 11/27/23 09:00 11/28/23 09:01 Sevelamer 800 Mg Tablet PO Not Given TID TEX Vancomycin HCl 125 mg 11/27/23 08:15 11/28/23 08:38 Vancomycin 125 Mg Capsule PO 125 mg Q6H TEX Administration PFSH Anesthesia Medical History SBP (spontaneous bacterial peritonitis) Acute bacterial peritonitis Hypoxia End-stage renal disease on hemodialysis Congestive heart failure Hypothyroidism Hypertension Surgical History S/P AAA repair H/O aortic aneurysm repair Social History Smoking and tobacco/nicotine status: former use of tobacco/nicotine Second hand smoke exposure: No Alcohol intake: never Substance/Drug Use: never Data Anesthesia 11/28/23 06:23 11/28/23 06:23 Short CBC 11/26/23 11/27/23 11/28/23 Range/Units 22:05 05:12 06:23 WBC 9.49 8.60 7.77 (3.29-11.43) 10^3/uL Hgb 10.30 L 10.30 L 11.50 (11.27-16.99) g/dL Hct 32.8 L 34.0 L 37.7 (37-53) % MCV 94.3 97.7 95.7 (82-101) fl Plt Count 256 228 256 (157-399) 10^3/cmm Neut % (Auto) 70.9 66.5 69.6 % Neut # (Auto) 6.73 5.72 5.41 (1.8-7.7) 10^3/uL BMP 11/26/23 11/27/23 11/28/23 22:05 05:12 06:23 Sodium 140 138 143 Potassium 3.7 4.1 4.3 Chloride 100 100 101 Carbon Dioxide 28 23 27 BUN 20 20 16 Creatinine 5.7 H* 5.8 H* 4.9 H Glucose 103 89 102 Calcium 8.8 8.3 L 9.2 Cardiac Enzymes 11/26/23 11/27/23 Range/Units 22:05 05:12 Troponin T Baseline 50 H (0-15) ng/L Troponin T Hi Sens 6Hr 48.30 H (0-15) ng/L Troponin T Hi Sens 6Hr Delta -1.70 L (0-12) ng/L NT-Pro-B Natriuret Pep > 58836 H (0-125) pg/mL Liver Function 11/26/23 11/27/23 11/28/23 Range/Units 22:05 05:12 06:23 Total Bilirubin 0.3 0.3 0.4 (0.15-1.2) mg/dL AST 13 16 21 (0-40) U/L ALT 8 9 11 (0-41) U/L Alkaline Phosphatase 86 90 105 (40-130) U/L Albumin 3.7 3.4 L 4.0 (3.5-5.2) g/dL Microbiology 11/27/23 05:12 Blood Culture - Preliminary Blood NEGATIVE TO DATE Cardiac Studies: 2 Echocardiogram 07/17/23
[2023-11-28] MEDS: ceFAZolin 2,000 MG in sodium chloride 0.9% (plus) 50 ML 100 MG IV (12:32)
[2023-11-28] MEDS: lidocaine-epi 1% 20 mL INJ INJECTION (13:45)
[2023-11-28] MEDS: BUPivacaine 0.25% INJ 10 mL INJECTION (13:45)
--- NOTE | 2023-11-28 13:45 | P.OP_ITS ---
Operative Report Date of procedure: November 28, 2023 Pre-op diagnosis: retained peritoneal dialysis catheter, Cummins of the chest wall Post-op diagnosis: Same Post-op findings: There was a large retained hematoma in the chest wall, in the hematoma there was multiple small pieces of the catheter that likely represented pieces of the cuff. At the level of the abdomen catheter was noted to enter the abdominal cavity to the left of the umbilicus, catheter was removed in 1 piece. Procedure done: Excision of retained peritoneal dialysis catheter, excision of chest wall foreign body, evacuation of chest wall hematoma. Specimens removed/disposition: Peritoneal dialysis catheter, chest wall foreign bodies Surgeon: Celestine Dillard MD Material Engineer: [employer] Staff Estimated blood loss: 10 Complications: none Brief History: 58-year-old male who recently presented to the hospital with spontaneous bacterial peritonitis and had a peritoneal dialysis catheter in place, this was attempted to be removed by surgeon on-call, unfortunately the catheter fracture. Patient visit to me on the office and we decided to proceed with foreign body excision as well as a question of a left chest wall retained hematoma. Procedure: Patient was brought into the OR, he was placed in a supine position. The abdomen and chest was prepped and draped in the usual sterile fashion after general anesthesia was given. Timeout was conducted. I was able to palpate the catheter to the level of the umbilicus, using the previous surgical incision I made a 2 cm incision at this level, the incision was deepened with nisreen ctrocautery until the catheter was identified, the catheter was then grasped with an Allis clamp, the superficial of the portion of the catheter was able to be delivered through the wound, it was noted that this has at the level of the metallic hum. and then I proceeded to circumferentially dissect the catheter Distal to the level of the anterior abdominal wall fascia. At this level the catheter was noted to have a cuff that was deeply embedded into the tissue the same was dissected with Metzenbaum scissors with careful consideration preserving the surrounding structures. Once the catheter was freed I was able to pull it from the abdominal cavity and the complete catheter was removed. This was passed to the scrub table and will be sent for catheter tip culture. The deep tissue surrounding anterior abdominal wall fascia was closed with #0 Vicryl. The wound was irrigated and then closed in layers using #3-0 Vicryl for the subcutaneous tissue and #4 Monocryl for the skin. I then placed my attention to the anterior chest wall, at the level of the hematoma I found the previous surgical incision from the catheter insertion, used this incision to make a 2 cm cut in the skin, this Was deepened into the subcutaneous tissue until the hematoma cavity was accessed. A large amount of retained blood was then evacuated from the hematoma. Once the retained blood was evacuated I was able to palpate several small fragments of the catheter, this fragments were grasped with an Allis clamp one by one and circumferentially dissected with electrocautery until they were excised. This was passed to the scrub table as a specimen. I then irrigated the wound, hemostasis was verified. I then closed the skin with alicia leaving a small opening in the middle from which quarter- inch iodoform packing was used to pack the wound. A compressive dressing was then applied. At the end of the procedure all counts were correct, the patient tolerated well the procedure and was transferred to the PACU in stable condition.
--- NOTE | 2023-11-28 14:11 | P.PN_ITS ---
Subjective 2 Subjective: Patient was seen this morning, currently on room air, denies any fevers, no chills, no cough, he does report anxiousness this morning, about his surgical procedure, Vitals/I&O/Wt Last Vital Signs Temp 97.5 F L 11/28/23 08:20 Pulse 78 11/28/23 08:20 Resp 18 11/28/23 08:20 BP 173/96 11/28/23 08:20 Pulse Ox 92 11/28/23 08:20 O2 Del Method Nasal Cannula 11/28/23 12:18 O2 Flow Rate 6 11/28/23 08:00 11/27/23 11/28/23 11/28/23 22:59 06:59 14:59 Intake Total 980 / 1220 50 / 1270 50 / 50 Output Total 3205 / 3205 Balance -2224 / 50 / -5 50 / 50 Weight last 48 hrs Weight 83.915 kg Weight 81.3 kg Weight 87.6 kg Weight 84.141 kg Weight 83.915 kg Physical Exam 2 Const: COMMON NORMALS: no acute distress and patient oriented x3 Neck/C-Spine: COMMON NORMALS: no JVD Resp: COMMON NORMALS: normal respiratory effort, No retractions, No use of accessory muscles and clear to auscultation bilaterally AUSCULTATION: clear to auscultation bilaterally Cardio: COMMON NORMALS: no JVD, regular rate, regular rhythm, S1 normal heart sound present and S2 normal heart sound present RATE: regular rate RHYTHM: regular rhythm HEART SOUNDS: S1 normal heart sound present and S2 normal heart sound present GI: COMMON NORMALS: Normal to inspection, nondistended, normoactive bowel sounds present and non-tender Extremity: NARRATIVE EXTREMITY EXAM: 1+ pitting edema Neuro: COMMON NORMALS: patient oriented x3 Psych: COMMON NORMALS: mental status grossly normal Data 11/28/23 06:23 11/28/23 06:23 Micro: Microbiology 11/27/23 05:12 Blood Culture - Preliminary Blood NEGATIVE TO DATE A&P Assessment and plan (1) H/O aortic aneurysm repair: (2) ESRD (end stage renal disease) on dialysis: (3) Hypoxia: (4) Pulmonary edema: (5) Bilateral pleural effusion: (6) Uncontrolled hypertension: Plan 58-year-old male currently on hemodialysis Monday presenting to the emergency room with acutely worsening shortness of breath and elevated blood pressure. Systolic blood pressure 190 initially upon arrival. At the time of this evaluation, blood pressure has improved to 136/69. CHF exacerbation -fluid overload, with persistent edema today with improved -CT of the chest negative for PE, shows bilateral pleural effusions and pulmonary edema -Nephrology consulted for dialysis, will receive dialysis tomorrow -Bumex 2 mg IV now in the interim. Patient states he still makes some urine. Typically on Bumex 2 mg p.o. at home. -home regimen with amlodipine 10 mg every day, metoprolol 100 mg p.o. twice daily and Imdur 60 mg p.o. daily. Hold hydralazine, may be resumed based on blood pressure trend postdialysis. Supplemental O2 to keep saturation greater than 92%. Peritonitis -Recent history of PD peritonitis and fractured PD catheter during attempted removal as noted above. Currently on cefpodoxime at home, will change to ceftriaxone 1 g IV every 24 hours for hospital use. General surgery consulted; patient was scheduled to undergo laparoscopic removal of the catheter fragments on November 28, 2023. CT of the chest today showing residual soft tissue swelling in the subcutaneous fat and 2 hyperdensities likely correlating with the retained catheter fragments. Complains of discomfort to palpation over anterior abdominal wall. -Will undergo surgical removal today Recent history of C. difficile He was on outpatient vancomycin which we will continue for hospital use. Anxiety, Ativan as needed VTE prophylaxis: heparin 5000 q12h Full code Plan for today removal of fractured PD catheter, Attestations 2 Medical Necessity Statement*: Patient requires hospitalization for fractured PD catheter removal, with CHF Diagnoses H/O aortic aneurysm repair Z98.890; Z86.79 ESRD (end stage renal disease) on dialysis N18.6; Z99.2 Hypoxia R09.02 Pulmonary edema J81.1 Bilateral pleural effusion J90 Uncontrolled hypertension I10
[2023-11-28] MEDS: sodium chloride 0.9% 1,000 ML 100 ML IV (15:05)
--- NOTE | 2023-11-28 15:48 | ANE.PACU2 ---
Inpatient post-anesthesia follow up: Airway intact: Yes Vital signs: Temperature 98.8 F Pulse Rate 60 Respiratory Rate 16 Blood Pressure 140/72 Pulse Oximetry 87 Oxygen Delivery Me thod Nasal Cannula Oxygen Flow Rate 6 Fraction of Inspir ed Oxygen Hydration adequate: Yes Nausea and vomiting: No Pain level: 2 Mental status: Baseline
[2023-11-29] VITALS (9 sets, daily range): BP systolic 145–169; BP diastolic 70–99; PULSE 71–112; RESP 16–20; TEMP 36.6–36.7; O2SAT 83–92
[2023-11-29] MEDS: sodium chloride 0.9% 1,000 ML 100 ML IV (00:11)
[2023-11-29] MEDS: cefTRIAXone 1,000 MG in sodium chloride 0.9% (plus) 50 ML 100 MG IV (00:12)
[2023-11-29] MEDS: vancomycin 125 mg Capsule PO ×3 (05:50→17:07)
[2023-11-29] MEDS: levothyroxine 50 mcg Tablet PO (05:50)
[2023-11-29 06:26] LABS: Basophils # 0.1 10^3/uL (0.0-0.1); Basophils % 1.4 %; Eosinophils # 0.4 10^3/uL (0.0-0.8); Eosinophils % 4.9 %; Hematocrit 35.4 % (37-53); Lymphocytes # 1.3 10^3/uL (0.8-4.8); Mean Corpuscular HGB Conc 29.4 g/dL (30-55); Mean Corpuscular Hemoglobin 29.3 pg (27-33); Mean Corpuscular Volume 99.7 fl (82-101); Mean Platelet Volume 10.3 fL (7.4-10.4); Monocytes # 0.6 10^3/uL (0.2-0.9); Monocytes % 7.1 %; Neutrophils # 5.49 10^3/uL (1.8-7.7); Neutrophils % 70.3 %; Nucleated Red Blood Cells % 0 %; Platelet Count 218 10^3/cmm (157-399); Red Blood Count 3.55 10^6/uL (3.85-5.65)
[2023-11-29 06:52] LABS: Blood Urea Nitrogen 22 mg/dL (6-20); Calcium 8.7 mg/dL (8.5-10.5); Carbon Dioxide 21 mmol/L (22-29); Chloride 103 mmol/L (98-107); Creatinine Clr Calc Pharmacy 13.6589; Glomerular Filtration Rate 9.5 mL/min (90-130); Glucose 75 mg/dL (65-115); Osmolality Calculated 296 mOsm/kg (285-295); Sodium 142 mmol/L (136-145)
[2023-11-29] MEDS: sevelamer 800 mg Tablet PO ×3 (07:51→17:07)
[2023-11-29] MEDS: metoprolol tartrate 50 mg Tablet PO ×2 (07:51→17:08)
--- NOTE | 2023-11-29 08:06 | P.PN_ITS ---
Subjective 2 Subjective: seen and examined. feels well. s/p surgery yesterday for removal of some Tenkoff catheter fragments. feels well. no n/v/f/c/garcia/d. apr. Medications: Reviewed: Yes Medication Review Details: Current Medications Acetaminophen (Acetaminophen 325 Mg Tablet) 650 mg PO Q6H PRN PRN Reason: Mild/Mod Pain Or Temp >/= 101 Albuterol Sulfate (Albuterol 2.5 Mg/3 Ml Neb) 2.5 mg INHALATION ONCE PRN PRN Reason: WHEEZING Amlodipine Besylate (Amlodipine 10 Mg Tablet) 10 mg PO QAM [facility] Last Admin: 11/28/23 05:42 Dose: 10 mg Atorvastatin Calcium (Atorvastatin 40 Mg Tablet) 40 mg PO BEDTIME [facility] Last Admin: 11/27/23 20:24 Dose: 40 mg Benzocaine (Cetylpyridinium Lozenge) 1 each MUCOUS MEM ONCE PRN PRN Reason: SORE THROAT Diphenhydramine HCl (Diphenhydramine 50 Mg/Ml Sdv 1ml) 12.5 mg IVP ONCE PRN PRN Reason: PONV Diphenhydramine HCl (Diphenhydramine 50 Mg/Ml Sdv 1ml) 12.5 mg IVP ONCE PRN PRN Reason: Postop N/V Famotidine (Famotidine 20 Mg/2 Ml Inj) 20 mg IVP ONCE PRN PRN Reason: HEARTBURN Fentanyl (Fentanyl 50 Mcg/Ml Inj 2ml) 50 mcg IVP ONCE PRN PRN Reason: Preop Pain Fentanyl (Fentanyl 50 Mcg/Ml Inj 2ml) 50 mcg IVP Q5M PRN PRN Reason: Pain level 1-5 PACU Phase I Stop: 11/29/23 14:12 Fentanyl (Fentanyl 50 Mcg/Ml Inj 2ml) 100 mcg IVP ONCE PRN PRN Reason: Pain level 1-5 PACU Phase I Stop: 11/29/23 14:12 Heparin Sodium (Porcine) (Heparin 5,000 Unit/Ml Inj 1 Ml) 5,000 unit SUBCUT Q12H [facility] Last Admin: 11/29/23 00:20 Dose: Not Given Hydromorphone HCl (Hydromorphone 1 Mg/Ml Inj 1 Ml) 0.5 mg IVP ONCE PRN PRN Reason: Phase II postop pain Hydromorphone HCl (Hydromorphone 1 Mg/Ml Inj 1 Ml) 0.5 mg IVP ONCE PRN PRN Reason: For preop pain/anxiety Hydromorphone HCl (Hydromorphone 1 Mg/Ml Inj 1 Ml) 0.5 mg IVP Q10M PRN PRN Reason: Pain level 6-10 PACU Phase I Stop: 11/29/23 14:12 Ceftriaxone Sodium 1,000 mg/ (Sodium Chloride) 50 mls @ 100 mls/hr IV Q24H [facility]; Protocol Last Infusion: 11/29/23 00:42 Dose: Infused Sodium Chloride (Sodium Chloride 0.9%) 1,000 mls @ 30 mls/hr IV .Q24H [facility] Stop: 11/29/23 11:29 Last Admin: 11/28/23 11:39 Dose: 30 mls/hr Sodium Chloride (Sodium Chloride 0.9%) 1,000 mls @ 100 mls/hr IV .Q10H [facility] Stop: 11/29/23 14:14 Last Admin: 11/29/23 00:11 Dose: 100 mls/hr Ipratropium [place] (Ipratropium 0.5 Mg/2.5 Ml Neb) 0.5 mg INHALATION ONCE PRN PRN Reason: WHEEZING Isosorbide Mononitrate (Isosorbide Mononitrate Er 60 Mg Tablet) 60 mg PO DAILY [facility] Last Admin: 11/28/23 08:38 Dose: 60 mg Levothyroxine Sodium (Levothyroxine 50 Mcg Tablet) 50 mcg PO QAM [facility] Last Admin: 11/29/23 05:50 Dose: 50 mcg Lorazepam (Lorazepam 2 Mg/Ml Inj 1 Ml) 0.5 mg IVP Q8H PRN PRN Reason: ANXIETY Last Admin: 11/28/23 09:38 Dose: 0.5 mg Meperidine HCl (Meperidine 50 Mg/Ml Inj) 12.5 mg IVP ONCE PRN PRN Reason: Shivering PACU Phase I Metoprolol Tartrate (Metoprolol Tartrate 50 Mg Tablet) 50 mg PO BID [facility] Last Admin: 11/29/23 07:51 Dose: 50 mg Midazolam HCl (Midazolam 1 Mg/Ml Inj 2 Ml) 2 mg IVP ONCE PRN PRN Reason: Preop Anxiety Morphine Sulfate (Morphine 4 Mg/Ml Sdv 1 Ml) 2 mg IVP Q6H PRN PRN Reason: SEVERE PAIN Ondansetron HCl (Ondansetron 2 Mg/Ml Sdv 2 Ml) 4 mg IVP Q8H PRN PRN Reason: vomiting, or N/V if npo Ondansetron HCl (Ondansetron 2 Mg/Ml Sdv 2 Ml) 4 mg IVP ONCE PRN PRN Reason: NAUSEA AND VOMITING Ondansetron HCl (Ondansetron 2 Mg/Ml Sdv 2 Ml) 4 mg IVP ONCE PRN PRN Reason: Nausea PACU Phase I Ondansetron HCl (Ondansetron 2 Mg/Ml Sdv 2 Ml) 4 mg IVP ONCE PRN PRN Reason: Nausea/Vomiting PACU PHASE II Pantoprazole Sodium (Pantoprazole Dr 40 Mg Tablet) 40 mg PO DAILY PRN PRN Reason: Acid Reflux Sevelamer Carbonate (Sevelamer 800 Mg Tablet) 800 mg PO TID [facility] Last Admin: 11/29/23 07:51 Dose: 800 mg Vancomycin HCl (Vancomycin 125 Mg Capsule) 125 mg PO Q6H [facility] Last Admin: 11/29/23 05:50 Dose: 125 mg Vitals/I&O/Wt Last Vital Signs Temp 98.0 F 11/29/23 04:29 Pulse 73 11/29/23 04:29 Resp 16 11/29/23 04:29 BP 145/70 11/29/23 04:29 Pulse Ox 91 11/29/23 04:29 O2 Del Method Nasal Cannula 11/29/23 04:29 O2 Flow Rate 6 11/28/23 20:00 11/28/23 11/29/23 11/29/23 22:59 06:59 14:59 Intake Total 150 / 250 1250 / 1500 Balance 150 / 245 1250 / 1495 Weight last 48 hrs Weight 82.554 kg Weight 83.915 kg Weight 81.3 kg Physical Exam 2 Narrative: The patient is comfortable in bed. Patient is sitting up on room air. Vital signs noted. . HEENT normocephalic atraumatic. Neck is supple Lungs have rt > left basal dullness Heart regular with systolic murmur positive S1-S2 Abdomen is soft positive bowel sounds. Positive left upper quadrant bandage where surgery was. Non tender Extremities 1+ edema. Neuro awake alert oriented x 3. Patient has an IJ permacath. Patient was seen and examined using A/V equipment as a telehealth visit. The nurse examined the patient. Data 11/29/23 06:17 11/29/23 06:17 Micro: Microbiology 11/27/23 05:12 Blood Culture - Preliminary Blood NEGATIVE TO DATE A&P Assessment and plan (1) ESRD (end stage renal disease) on dialysis: 58-year-old gentleman ESRD history of COPD and CHF. The patient was recently converted from peritoneal dialysis to hemodialysis due to peritonitis. The Patient remains on antibiotics. s/p removal of retaine dPD ctaheter fragments repeat HD today Monitor blood pressure today may be able to dec meds Hemoglobin 10- epo as outpt dialysis. Monitor phosphorus. please have pt speak to dietitian- for education on renal diet renal okay for d/c post HD today or d/c to HD unit today Plan As above. Attestations 2 Medical Necessity Statement*: per medicine and syrgery Time Spent in Patient Care: 16 - 35 minutes (>than 50% of time sp ent in counselling and/or direct pt care on unit) . Coding Level of Care Code Acute Code for Chg Fwd Diagnoses ESRD (end stage renal disease) on dialysis N18.6; Z99.2
[2023-11-29] MEDS: heparin 5,000 unit/mL INJ 1 mL 5000 UNIT SUBCUT (12:14)
--- NOTE | 2023-11-29 12:17 | P.PN_ITS ---
Subjective 2 Subjective: Postoperative day 1 status post excision of foreign body of the chest wall and excision of retained dialysis catheter. Patient doing very well. No significant issues. Vitals/I&O/Wt Last Vital Signs Temp 97.9 F 11/29/23 08:10 Pulse 81 11/29/23 11:24 Resp 20 H 11/29/23 11:24 BP 161/83 11/29/23 08:10 Pulse Ox 84 L 11/29/23 11:24 O2 Del Method Room Air 11/29/23 11:24 O2 Flow Rate 6 11/28/23 20:00 11/28/23 11/29/23 11/29/23 22:59 06:59 14:59 Intake Total 150 / 250 1250 / 1500 120 / 120 Balance 150 / 245 1250 / 1495 120 / 120 Weight last 48 hrs Weight 182 lb Weight 185 lb Weight 179 lb 3.773 oz Physical Exam 2 Chest: OTHER: Surgical incision of the left chest appears to be hemostatic, packing in place. Patient will receive packing instructions and family member will be taught about packing changes by nursing staff. GI: OTHER: Abdomen soft nontender nondistended surgical incision covered with Dermabond. Data 11/29/23 06:17 11/29/23 06:17 Micro: Microbiology 11/28/23 13:20 Catheter Tip Culture - Preliminary Other Source A&P Assessment and plan (1) Peritoneal dialysis catheter dysfunction: Plan From the general surgery standpoint there is good progression after excision of retained peritoneal dialysis catheter, the chest wound needs to be packed on a daily basis, the of the patient will be taught how to do this so she can continue wound care as outpatient. I will follow-up with the patient in 2 weeks to ensure adequate healing. Cultures from catheter are pending. All other management per primary team. Attestations 2 Medical Necessity Statement*: Per medical team. Coding Level of Care Code Acute Code for [facility] F[facility] Diagnoses Peritoneal dialysis catheter dysfunction T85.611A
[2023-11-29] MEDS: LORazepam 2 mg/mL INJ 1 mL 0.5 MG IVP (12:23)
--- NOTE | 2023-11-29 13:07 | P.DS_ITS ---
Discharge Providers Date of Admission: 11/26/23 23:22 Date of Discharge: November 29, 2023 Attending Provider at Admission: Karyna Servin MD Attending Provider at Discharge: Felice Rooney MD Primary Care Provider: Julia De Luna MD Diagnoses at Discharge Discharge Diagnosis (1) Peritoneal dialysis catheter dysfunction: Status: Acute Reason for Visit Reason for Visit: High blood pressure Hospital Course Hospital Course Celestine Farrell is a 58 year old male With kidney failure currently on hemodialysis Monday as an outpatient via chest wall tunneled cath. His renal failure developed in May of this year after suffering from acute rupture of the infrarenal abdominal aortic aneurysm and subsequent AAA repair. He was recently admitted to the hospital between November 12 to November 16, 2023 for PD peritonitis. Patient had recently switched from HD to PD however he is now back on HD given recent PD peritonitis. Peritoneal fluid culture had revealed Klebsiella for which patient was discharged with oral cefpodoxime. The tunneled PD catheter was attempted to be removed on November 15, 2023 however this was complicated by fracture of the catheter. Fragments of the tunneled peritoneal catheter still remain within the abdominal and chest tract. Since he was on aspirin and Plavix at the time, surgery was deferred with recommendations to stopping the DAPT and following up as an outpatient. He followed with general surgery as an outpatient on November 22, 2023 and was planned for laparoscopic removal of the fragments on November 28, 2023. He presents today with shortness of breath, systolic blood pressure up to 190 at home. He did go to dialysis on Monday. CTA was negative for PE, did show evidence of bilateral pleural effusions and pulmonary edema. Celestine Farrell is a 58 year old male With kidney failure currently on hemodialysis Monday as an outpatient via chest wall tunneled cath. His renal failure developed in May of this year after suffering from acute rupture of the infrarenal abdominal aortic aneurysm and subsequent AAA repair. He was recently admitted to the hospital between November 12 to November 16, 2023 for PD peritonitis. Patient had recently switched from HD to PD however he is now back on HD given recent PD peritonitis. Peritoneal fluid culture had revealed Klebsiella for which patient was discharged with oral cefpodoxime. The tunneled PD catheter was attempted to be removed on November 15, 2023 however this was complicated by fracture of the catheter. Fragments of the tunneled peritoneal catheter still remain within the abdominal and chest tract. Since he was on aspirin and Plavix at the time, surgery was deferred with recommendations to stopping the DAPT and following up as an outpatient. He followed with general surgery as an outpatient on November 22, 2023 and was planned for laparoscopic removal of the fragments on November 28, 2023. He presents today with shortness of breath, systolic blood pressure up to 190 at home. He did go to dialysis on Monday. CTA was negative for PE, did show evidence of bilateral pleural effusions and pulmonary edema. Patient presented to [facility] for fluid overload, CHF exacerbation, pulmonary edema, received inpatient dialysis, overall clinically improved, edema improved, discharged with outpatient dialysis regimen, discharged with oxygen therapy, with close follow-up with primary care provider as outpatient For his history of peritonitis with fractured PD catheter, received inpatient Rocephin, general surgery was consulted, underwent removal of the catheter fragment successfully, tolerated procedure well, discharged on 5 remaining days of cefdinir Recent history of C. difficile colitis, complaints of diarrhea, discharged on p.o. vancomycin Physical Exam Const: COMMON NORMALS: no acute distress and patient oriented x3 Resp: COMMON NORMALS: normal respiratory effort, No retractions, No use of accessory muscles and clear to auscultation bilaterally AUSCULTATION: clear to auscultation bilaterally Cardio: COMMON NORMALS: regular rate, regular rhythm, S1 normal heart sound present and S2 normal heart sound present RATE: regular rate RHYTHM: regular rhythm HEART SOUNDS: S1 normal heart sound present and S2 normal heart sound present GI: COMMON NORMALS: Normal to inspection, nondistended, normoactive bowel sounds present and non-tender Extremity: COMMON NORMALS: no pedal edema Neuro: COMMON NORMALS: patient oriented x3 Psych: COMMON NORMALS: mental status grossly normal Discharge Data Studies Completed and Pending Completed Studies During Hospitalization Category Date Time Status CTA chest [CT angio chest PE protcl [id number]] Stat Cat Scan 11/26/23 23:11 Completed XR chest 1V portable [id number] Stat Exams 11/26/23 21:49 Completed Pending at discharge Category Date Time Status C-arm Fluoroscopy [id number] Routine Exams 11/28/23 11:27 Ordered Basic Metabolic Panel AM LABS Lab 11/30/23 04:00 Ordered Basic Metabolic Panel AM LABS Lab 12/01/23 04:00 Ordered Blood Culture AM LABS Lab 11/27/23 05:12 Results Catheter Tip Culture Routine Lab 11/28/23 13:20 Results Complete Blood Count w/Auto AM LABS Lab 11/30/23 04:00 Ordered Complete Blood Count w/Auto AM LABS Lab 12/01/23 04:00 Ordered Pathology: Surgical [PTH] Routine Pth 11/28/23 13:54 Received Radiology Impressions Chest X-Ray 11/26/23 21:49 IMPRESSION: Cardiomegaly with mild central vascular congestion, pulmonary edema, and small pleural effusions, similar compared to multiple prior chest radiographs likely representing underlying CHF/fluid overload. Chest CTA 11/26/23 23:11 IMPRESSION: 1. No evidence of pulmonary embolism. 2. Enlarging mediastinal lymph nodes. 3. Xrlfj-js-igrqeful left and bjiuvisn-nm-lwcuo right pleural effusions with adjacent atelectasis, increased compared to prior study. 4. Worsening pulmonary edema. Laboratory Results WBC 7.80 10^3/uL (3.29-11.43) 11/29/23 06:17 RBC 3.55 10^6/uL (3.85-5.65) L 11/29/23 06:17 Hgb 10.40 g/dL (11.27-16.99) L 11/29/23 06:17 Hct 35.4 % (37-53) L 11/29/23 06:17 MCV 99.7 fl (82-101) 11/29/23 06:17 MCH 29.3 pg (27-33) 11/29/23 06:17 MCHC 29.4 g/dL (30-55) L 11/29/23 06:17 RDW 18.0 % (12.1-15.1) H 11/29/23 06:17 Plt Count 218 10^3/cmm (157-399) 11/29/23 06:17 MPV 10.3 fL (7.4-10.4) 11/29/23 06:17 Neut % (Auto) 70.3 % 11/29/23 06:17 Lymph % (Auto) 16.0 % 11/29/23 06:17 Gilchrist % (Auto) 7.1 % 11/29/23 06:17 Eos % (Auto) 4.9 % 11/29/23 06:17 Baso % (Auto) 1.4 % 11/29/23 06:17 Neut # (Auto) 5.49 10^3/uL (1.8-7.7) 11/29/23 06:17 Lymph # (Auto) 1.3 10^3/uL (0.8-4.8) 11/29/23 06:17 Gilchrist # (Auto) 0.6 10^3/uL (0.2-0.9) 11/29/23 06:17 Eos # (Auto) 0.4 10^3/uL (0.0-0.8) 11/29/23 06:17 Baso # (Auto) 0.1 10^3/uL (0.0-0.1) 11/29/23 06:17 Nucleated RBC % (auto) 0 % 11/29/23 06:17 Nucleated RBCs # 0.0 /100WBC 11/29/23 06:17 Sodium 142 mmol/L (136-145) 11/29/23 06:17 Potassium 5.0 mmol/L (3.5-5.1) 11/29/23 06:17 Chloride 103 mmol/L (98-107) 11/29/23 06:17 Carbon Dioxide 21 mmol/L (22-29) L 11/29/23 06:17 Anion Gap 23.0 (5-19) H 11/29/23 06:17 BUN 22 mg/dL (6-20) H 11/29/23 06:17 Creatinine 6.1 mg/dL (0.7-1.2) H* 11/29/23 06:17 GFR Calculation 9.5 mL/min (90-130) L 11/29/23 06:17 Glucose 75 mg/dL (65-115) 11/29/23 06:17 Calculated Osmolality 296 mOsm/kg (285-295) H 11/29/23 06:17 Calcium 8.7 mg/dL (8.5-10.5) 11/29/23 06:17 Total Bilirubin 0.4 mg/dL (0.15-1.2) 11/28/23 06:23 AST 21 U/L (0-40) 11/28/23 06:23 ALT 11 U/L (0-41) 11/28/23 06:23 Alkaline Phosphatase 105 U/L (40-130) 11/28/23 06:23 Ammonia 17 umol/L (16-60) 11/26/23 22:05 Troponin T Baseline 50 ng/L (0-15) H 11/26/23 22:05 Troponin T Hi Sens 6Hr 48.30 ng/L (0-15) H 11/27/23 05:12 Troponin T Hi Sens 6Hr Delta -1.70 ng/L (0-12) L 11/27/23 05:12 NT-Pro-B Natriuret Pep > 79602 pg/mL (0-125) H 11/26/23 22:05 Total Protein 7.1 g/dL (6.6-8.7) 11/28/23 06:23 Albumin 4.0 g/dL (3.5-5.2) 11/28/23 06:23 Globulin 3.1 g/dL (1.3-4.6) 11/28/23 06:23 Hep Bs Antigen Non-reactive (Nonreactive) 11/26/23 22:05 Hep Bs Antibody < 3.5 (11.5-1000) L 11/26/23 22:05 Hepatitis C Antibody Non-reactive (Nonreactive) 11/26/23 22:05 Vitals Last Vital Signs Temp 98.0 F 11/29/23 11:41 Pulse 78 11/29/23 11:41 Resp 19 H 11/29/23 11:41 BP 146/94 11/29/23 11:41 Pulse Ox 89 L 11/29/23 11:41 O2 Del Method Room Air 11/29/23 11:41 O2 Flow Rate 6 11/28/23 20:00 Discharge Plan Discharge Patient Disposition: Home Condition: Stable Prescriptions: New cefdinir 300 mg capsule 300 mg PO BID 3 Days Qty: 6 0RF vancomycin 125 mg Capsule 125 mg PO Q6H 7 Days Qty: 28 0RF Continued aspirin 81 mg Tablet,Delayed Release (Dr/Ec) 81 mg PO BEDTIME Hold Instructions: Resume on 11/30/23. Rx Instructions: Medication currently on hold until 11/30/23 levothyroxine 50 mcg tablet 50 mcg PO QAM atorvastatin 40 mg tablet 40 mg PO BEDTIME ondansetron HCl 4 mg tablet 4 mg PO Q8H PRN (Reason: Nausea And Vomiting) sevelamer carbonate 800 mg tablet 800 mg PO TIDWM RenaPlex-D 800 mcg-12.5 mg -2,000 unit tablet 1 tab PO QPM isosorbide mononitrate 60 mg Tablet Extended Release 24 Hr 60 mg PO DAILY Qty: 30 0RF bumetanide 2 mg tablet 2 mg PO DAILY acetaminophen 500 mg Tablet 1,000 mg PO Q6H PRN (Reason: Pain) docusate sodium [Colace] 100 mg Capsule 100 mg PO BID gentamicin 0.1 % cream 1 applic TOPICAL PRN PRN (Reason: TO PORT) calcitriol 0.25 mcg capsule 0.25 mcg PO DAILY pantoprazole 40 mg tablet,delayed release (DR/EC) 40 mg PO DAILY PRN (Reason: Acid Reflux) Changed amlodipine 10 mg tablet 5 mg PO QAM 30 Days Qty: 15 0RF metoprolol tartrate 100 mg tablet 50 mg PO BID 30 Days Qty: 30 0RF Discontinued losartan 100 mg tablet 100 mg PO QAM hydralazine 25 mg tablet 25 mg PO BID cefpodoxime 200 mg tablet 200 mg PO BID Qty: 28 0RF Rx Instructions: must administer with a meal/food Discharge Orders: Discharge Order (Routine); Ordered 11/29/23 Ordered By: Felice Rooney Referrals: Julia De Luna MD [Primary Care Provider] - 12/07/23 11:15 am Discharge Diet: Cardiac Discharge Activity: Resume usual activity Patient Instructions: Acute Wound Care (DC), Opioid Safety, Post Anesthesia Care Activity Restrictions/Additional Instructions: - Please follow-up with your regular dialysis schedule ? If you have any worsening shortness of breath please go to the emergency room ? Please follow-up with primary care Discharge Attestations Time Spent in Discharge Care*: greater than 30 min Status at Discharge: Cognitive status at discharge: cognitively intact , Behavioral status at discharge: cooperative , Quality Metrics Clinical Quality Measures [ No reported AMI, CVA or VTE this stay] Coding Level of Care Code 79574 Total time (in minutes) for Discharge: 45 Diagnoses Peritoneal dialysis catheter dysfunction T85.611A
[2023-11-29] MEDS: heparin, porcine 1,000 unit/mL INJ 10 mL 1000 UNIT HE (13:49)
[2023-11-29] MEDS: amlodipine 5 mg Tablet PO (17:53)
== END 2023-11-29 19:40 | disposition home or self-care (01) | DRG 981 ==
LOC: ER 23:14 → MEDSURG 23:22
PROVIDERS: Internal Medicine Nephrology; Surgery; Admitting Provider Student in an Organized Health Care Education/Training Program; Emergency Provider Emergency Medicine; PCP Internal Medicine; Visit Provider Family Medicine
PROC: 0WPG03Z Removal of Infusion Device from Peritoneal Cavity, Open Approach (ICD-10-PCS; principal; 2023-11-28 12:45)
PROC: 0WPG03Z Removal of Infusion Device from Peritoneal Cavity, Open Approach (ICD-10-PCS; CPT 49422; 2023-11-28 12:45)
DX: I13.2 Hypertensive heart and chronic kidney disease with heart failure and with stage 5 chronic kidney disease, or end stage renal disease (principal); K65.8 Other peritonitis; N18.6 End stage renal disease; L76.32 Postprocedural hematoma of skin and subcutaneous tissue following other procedure; I50.9 Heart failure, unspecified; Z87.891 Personal history of nicotine dependence; B96.89 Other specified bacterial agents as the cause of diseases classified elsewhere; J44.9 Chronic obstructive pulmonary disease, unspecified; Z79.82 Long term (current) use of aspirin; K43.9 Ventral hernia without obstruction or gangrene; F41.9 Anxiety disorder, unspecified; E03.9 Hypothyroidism, unspecified; Z49.02 Encounter for fitting and adjustment of peritoneal dialysis catheter; Z99.2 Dependence on renal dialysis
CPT/HCPCS: 36415; 71045; 71275; 80048; 80053; 82140; 83880; 84484; 85025; 86706; 86803; 87040; 87070; 87075; 87205; 87340; 88300; 90935; 93005; 94760; 96372; 96374; 99285; J0360; J0690; J0696; J1644; J2060; J2405; J2704; J2710; J3010; J3490; J7030; Q3014; Q9967

== ENCOUNTER 2024-01-23 07:49 | Day surgery (SDC) | payer OTHER, SELFPAY ==
[2024-01-23 08:09] VITALS: BP 161/83; PULSE 61; RESP 16; TEMP 36.9; O2SAT 95
[2024-01-23 08:10] VITALS: BMI 25.8
--- NOTE | 2024-01-23 08:11 | P.HPUD_ITS ---
Surgery/Procedure H&P Update DATE OF PROCEDURE: January 23, 2024 DATE H&P PERFORMED: 01/10/24 H&P UPDATE INFORMATION: I have reviewed H&P completed within last 30 days, I have examined patient prior to procedure, No changes to prior documentation and H&P is in [facility] EMR on date indicated PLANNED PROCEDURE: Operation Date: 01/23/24 09:00 Proposed Procedures p Colonoscopy 27857, G0105, Z12.11(Not Applicable) - Celestine Dillard MD
--- NOTE | 2024-01-23 08:11 | W.PM.OPSUD ---
Surgery/Procedure H&P Update DATE OF PROCEDURE: January 23, 2024 DATE H&P PERFORMED: 01/10/24 H&P UPDATE INFORMATION: I have reviewed H&P completed within last 30 days, I have examined patient prior to procedure, No changes to prior documentation and H&P is in [facility] on date indicated PLANNED PROCEDURE: Operation Date: 01/23/24 09:00 Proposed Procedures p Colonoscopy 95802, G0105, Z12.11(Not Applicable) - Celestine Dillard MD
--- NOTE | 2024-01-23 08:20 | ANES.PREANE2 ---
Pre-Anesthetic Assessment Height/Weight: Height 1.73 m Weight 77.111 kg Temp Pulse Resp BP Pulse Ox O2 Del Method 98.4 F 61 16 161/83 95 Room Air 01/23/24 08:09 01/23/24 08:09 01/23/24 08:09 01/23/24 08:09 01/23/24 08:09 01/23/24 08:09 Preop Diagnosis: Positive colaguard Operation Date: 01/23/24 09:00 Proposed Procedures p Colonoscopy 59918, G0105, Z12.11(Not Applicable) - Celestine Dillard MD Familial anesthetic complications: none Was Beta Maddy taken within 24 hours: Yes Was Clonidine taken within 24 hours: N/A Last intake: Intake Last Liquid Date 01/22/24 Last Liquid Time 22:00 Last Solid Date 01/21/24 Last Solid Time 18:00 Social No alcohol and No tobacco Exam alert, oriented x 3, clear to auscultation bilaterally and regular rate & rhythm Airway Submandibular: within normal limits Cervical ROM: within normal limits Mallampati: Class II Dentition: false History/ROS No significant history except as noted and No significant complaints Pulmonary None reported CV/HEM Congestive Heart Failure, Hypertension and Peripheral Vascular Disease Kidney Stones hemodialysis Hepatic None reported GI Gastroesophageal Reflux Disease Metabolic None reported Musc/skel None reported Neuropsych no appetite, significant weight loss Anesthetic Plan ASA status: 3 Anesthesia: MAC Risk of > 500 ml blood loss (7ml/kg in children): No Other Pertinent Information AAA repair in June, lost kidney function during that time. Medications/Allergies Home Medications Medication Instructions Recorded Confirmed Last Taken Type aspirin 81 mg tablet,delayed 81 mg PO BEDTIME 07/17/23 01/23/24 01/18/24 History release levothyroxine 50 mcg tablet 50 mcg PO QAM 07/17/23 01/23/24 01/23/24 History atorvastatin 40 mg tablet 40 mg PO BEDTIME 09/25/23 01/23/24 01/22/24 History ondansetron HCl 4 mg tablet 4 mg PO Q8H PRN Nausea And Vomiting 09/25/23 01/23/24 01/22/24 History sevelamer carbonate 800 mg tablet 800 mg PO TIDWM 09/25/23 01/23/24 01/22/24 History vit B,C-folic ac 800 mcg-zinc 12.5 1 tab PO QPM on non dialysis days 09/25/23 01/23/24 01/22/24 History mg-selen-D3 2,000 unit-vit E tablet (RenaPlex-D) isosorbide mononitrate 60 mg 60 mg PO DAILY #30 tabs 09/27/23 01/23/24 01/22/24 Rx tablet,extended release 24 hr acetaminophen 500 mg tablet 1,000 mg PO Q6H PRN Pain 11/13/23 01/23/24 Unknown History bumetanide 2 mg tablet 2 mg PO DAILY 11/13/23 01/23/24 01/22/24 History calcitriol 0.25 mcg capsule 0.25 mcg PO DAILY 11/13/23 01/23/24 01/22/24 History docusate sodium 100 mg capsule 100 mg PO BID 11/13/23 01/23/24 01/22/24 History (Colace) gentamicin 0.1 % topical cream 1 applic topical PRN PRN TO PORT 11/13/23 01/23/24 11/26/23 History pantoprazole 40 mg tablet,delayed 40 mg PO DAILY PRN Acid Reflux 11/13/23 01/23/24 01/22/24 History release amlodipine 10 mg tablet 5 mg (1/2 x 10 mg) PO QAM 30 days 11/29/23 01/23/24 01/23/24 Rx #15 tabs metoprolol tartrate 100 mg tablet 50 mg (1/2 x 100 mg) PO BID 30 11/29/23 01/23/24 01/23/24 Rx days #30 tabs clopidogrel 75 mg tablet 75 mg PO DAILY 01/18/24 01/23/24 01/17/24 History Allergies Allergy/AdvReac Type Severity Reaction Status Date / Time adhesive Allergy ALGY-Rash Verified 01/10/24 07:58 [facility] Anesthesia Medical History (Updated 01/10/24 @ 09:31 by Celestine Dillard MD) SBP (spontaneous bacterial peritonitis) Acute bacterial peritonitis Hypoxia End-stage renal disease on hemodialysis Congestive heart failure Hypothyroidism Hypertension Surgical History S/P AAA repair H/O aortic aneurysm repair Social History Smoking and tobacco/nicotine status: former use of tobacco/nicotine Second hand smoke exposure: No Alcohol intake: never Substance/Drug Use: never Data Anesthesia Cardiac Studies: Echocardiogram 07/17/23
[2024-01-23] MEDS: sodium chloride 0.9% 1,000 ML 30 ML IV (08:27)
[2024-01-23 09:43] VITALS: BP 95/58; PULSE 58; RESP 16; TEMP 36.2; O2SAT 93
[2024-01-23 09:57] VITALS: BP 118/81; PULSE 55; TEMP 36.3; O2SAT 96
--- NOTE | 2024-01-23 10:40 | ANE.PACU2 ---
Inpatient post-anesthesia follow up: Airway intact: Yes Vital signs: Temperature 97.4 F Pulse Rate 55 Respiratory Rate 16 Blood Pressure 118/81 Pulse Oximetry 96 Oxygen Delivery Me thod Room Air Oxygen Flow Rate Fraction of Inspir ed Oxygen Hydration adequate: Yes Nausea and vomiting: No Pain level: 1 Mental status: Baseline
== END 2024-01-23 10:41 | disposition home or self-care (01) ==
PROVIDERS: PCP Internal Medicine; Visit Provider Surgery
PROC: 0DJD8ZZ Inspection of Lower Intestinal Tract, Via Natural or Artificial Opening Endoscopic (ICD-10-PCS; CPT 45330; 2024-01-23 09:00)
DX: Z12.11 Encounter for screening for malignant neoplasm of colon (principal); D12.4 Benign neoplasm of descending colon; D12.5 Benign neoplasm of sigmoid colon; D12.8 Benign neoplasm of rectum; I11.0 Hypertensive heart disease with heart failure; I50.9 Heart failure, unspecified; K21.9 Gastro-esophageal reflux disease without esophagitis; Z79.82 Long term (current) use of aspirin; E03.9 Hypothyroidism, unspecified
CPT/HCPCS: 45333; 45338; 88305; J2704; J7030

== ENCOUNTER → 2024-02-14 13:53 | Outpatient (BNVA) | payer MEDICARE, OTHER, SELFPAY | PROVIDERS: PCP Internal Medicine; Visit Provider Surgery | DX: Z12.11 Encounter for screening for malignant neoplasm of colon (principal) | CPT/HCPCS: 99213 ==